=== PATIENT | female | born 1955 | race Caucasian/White ===

== ENCOUNTER 2018-02-23 09:08 | Emergency (ER) | payer OTHER ==
[2018-02-23] MEDS ORDERED: NA CHLORIDE 0.9% 1,000 ML ONE (09:53)
[2018-02-23 10:06] LABS: Absolute Lymphocytes (CBC) 0.4 K/uL (0.7-4.9); Absolute Monocytes 0.7 K/uL (0.1-1.3); Absolute Neutrophil 3.1 K/uL (1.8-8.0); Basophils % 0.2 % (0-1.3); Eosinophils % 8.3 % (0-4.4); Hematocrit 43.7 % (36.0-45.0); Lymphocytes % 9.4 % (15.3-44.8); MCV 90.9 fL (80-100); MPV 7.3 fL (7.6-11.3); Monocytes % 15.2 % (3.3-12.3); RBC Red Blood Cell Count 4.81 M/uL (3.86-4.86)
[2018-02-23 10:25] LABS: Blood Morphology Comment NOT SEEN (NOT SEEN); Platelet Estimate ADEQ; Urine White Blood Cell Casts OK
[2018-02-23 10:27] LABS: Albumin 3.7 g/dL (3.4-5.0); Bilirubin Direct 0.1 mg/dL (0-0.2); Bilirubin Total 0.2 mg/dL (0.2-1.0); Potassium 3.2 mmol/L (3.5-5.1); Protein, Total 7.7 g/dL (6.4-8.2)
[2018-02-23 10:37] LABS: Urine Bacteria <20 /HPF (<20); Urine Culture Reflex Order NOT NEEDED; Urine RBC <5 /HPF (NONE SEEN)
[2018-02-23] MEDS ORDERED: KCL 20 MEQ/100 mL IVPB 20 MEQ/100 ML BAG IV ONE (10:57)
--- NOTE | 2018-02-23 11:33 | RAD REPORT ---
EXAM DESCRIPTION: CTAbdomen Pelvis W Contrast - 02/23/2018 11:23 am CLINICAL HISTORY: Abdominal pain. CONSTIPATION COMPARISON: Abdomen Pelvis W Contrast dated 05/03/2017; CT ABD PELVIS W CONTRAST dated 06/09/2012 TECHNIQUE: Biphasic CT imaging of the abdomen and pelvis was performed with 100 ml non-ionic IV cont rast. All CT scans are performed using dose optimization technique as appropriate and may include automated exposure control or mA/KV adjustment according to patient size. FINDINGS: The lung bases are clear.Small hiatal hernia is present. Postsurgical changes about the st omach. The liver, spleen, pancreas, adrenal glands and kidneys are within normal limits. No bowel obstruction, free air, free fluid or abscess. Moderate fecal retention in the colon. Colonic diverticulosis is present without diverticulitis. The appendix is normal. No evidence of significan t lymphadenopathy. No suspicious bony findings. Mild lumbosacral degenerative changes. IMPRESSION: No acute intra-abdominal or pelvic finding.
--- NOTE | 2018-02-23 11:53 | ER ---
Nurse's Notes [facility] Name: Maryellen Reed Age: 62 yrs Sex: Female : 1955 Arrival Date: 02/23/2018 Time: 09:10 Bed 14 Private MD: Out, [facility] Diagnosis: Constipation;Urinary tract infection, site not specified Presentation: 02/23 09:34 Presenting complaint: Urinary frequency and difficulty urinating x 4 days, constipation hb x 2 months. On Bactrim day 3 for UTI. Transition of care: patient was not received from another setting of care. Onset of symptoms was February 20, 2018. Risk Assessment: Do you want to hurt yourself or someone else? Patient reports no desire to harm self or others. Care prior to arrival: None. 09:34 Method Of Arrival: Ambulatory hb 09:34 Acuity: BERYL 3 hb 09:42 Initial Sepsis Screen: Does the patient meet any 2 criteria? No. Patient's initial la1 sepsis screen is negative. Does the patient have a suspected source of infection? Yes: Dysuria/Frequency/Urgency/UTI. Historical: - Allergies: 09:38 NKA; hb - Home Meds: 09:38 hydrochlorothiazide 25 mg Oral tab 1 tab once daily [Active]; levothyroxine 75 mcg tab hb 1 tab once daily [Active]; Metoprolol Tartrate 12.5 MG Oral once daily [Active]; simvastatin 20 mg Oral tab 1 tab once daily [Active]; - PMHx: 09:38 Heart Murmur; Hyperlipidemia; Hypothyroidism; hb - PSHx: 09:38 Hysterectomy; gastric sleeve; breast augmentation; windy knee; abdominoplasty; left foot; hb - Immunization history:: Adult Immunizations up to date. - Social history:: Smoking status: Patient/guardian denies using tobacco. - Ebola Screening: : No symptoms or risks identified at this time. Screenin:42 Abuse screen: Denies threats or abuse. Nutritional screening: No deficits noted. la1 Tuberculosis screening: No symptoms or risk factors identified. Fall Risk None identified. Assessment: 09:41 General: Appears in no apparent distress. Behavior is calm, cooperative. Pain: Denies la1 pain. Neuro: Level of Consciousness is awake, alert, obeys commands, Oriented to person, place, time, situation. Cardiovascular: Capillary refill < 3 seconds Patient's skin is warm and dry. Respiratory: Airway is patent Respiratory effort is even, unlabored, Respiratory pattern is regular, symmetrical. GI: Bowel sounds present X 4 quads. Abd is soft and non tender X 4 quads. : Reports burning with urination, Pt states she has been on bactrim for UTI since Monday but is still having fever. 10:53 Reassessment: Patient appears in no apparent distress at this time. No changes from la1 previously documented assessment. Patient and/or family updated on plan of care and expected duration. Pain level reassessed. Patient is alert, oriented x 3, equal unlabored respirations, skin warm/dry/pink. 12:43 Reassessment: awaiting completion of IV potassium before DC. la1 Vital Signs: 09:36 BP 120 / 82; Pulse 96; Resp 16; Temp 99.4; Pulse Ox 100% on R/A; Pain 2/10; hb 10:52 BP 112 / 74; Pulse 80; Resp 16; Pulse Ox 98% on R/A; la1 12:12 BP 128 / 75; Pulse 78; Resp 21; Pulse Ox 99% on R/A; mh5 13:06 BP 124 / 61; Pulse 82; Resp 20; Pulse Ox 99% on R/A; mh5 ED Course: 09:10 Patient arrived in ED. mr 09:11 Out, [facility] is Private Physician. mr 09:35 Cordelia Neal [facility]-C [facility]. snw 09:35 Rene Pollard MD is Attending Physician. snw 09:36 Triage completed. hb 09:36 Arm band placed on right wrist. hb 09:41 Jonathan Hairston, JOHANNA is Primary Nurse. la1 09:42 Call light in reach. la1 09:58 No provider procedures requiring assistance completed. Inserted saline lock: 22 gauge la1 in right forearm, using aseptic technique. Blood collected. 10:14 Urine Dipstick--Ancillary (enter results) Sent. mh5 10:14 Urine Culture Sent. mh5 10:14 Urine Microscopic Only Sent. mh5 10:14 Urine collected: clean catch specimen, clear. mh5 11:22 CT completed. Patient tolerated procedure well. Patient moved to CT via wheelchair. sj Patient moved back from CT. 11:24 CT Abd/Pelvis - W/Contrast In Process Unspecified. EDMS 13:54 IV discontinued, intact, bleeding controlled, No redness/swelling at site. Pressure la1 dressing applied. Administered Medications: 09:57 Drug: NS 0.9% 1000 ml Route: IV; Rate: 125 ml/hr; Site: right forearm; la1 13:41 Follow up: IV Status: Order to discontinue infusion la1 10:52 Drug: Potassium Chloride 20 mEq Route: IV; Rate: calculated rate; Site: right forearm; la1 13:41 Follow up: IV Status: Completed infusion la1 13:41 Drug: Macrobid 100 mg Route: PO; la1 13:41 Follow up: Response: Medication administered at discharge. la1 13:41 Drug: Magnesium Citrate Liquid 300 ml Route: PO; la1 13:41 Follow up: Response: Medication administered at discharge. la1 13:54 Not Given (Physician Discretion): Phenergan 6.25 mg IVP once la1 Outcome: 11:53 Discharge ordered by . snw 13:54 Discharged to home ambulatory. la1 13:54 Condition: stable 13:54 Discharge instructions given to patient, Instructed on discharge instructions, follow up and referral plans. medication usage, Demonstrated understanding of instructions, follow-up care, medications, Prescriptions given X 2. 13:54 Patient left the ED. la1 Signatures: Dispatcher [employer] EDNH Cordelia Neal, SAURABH ALLERGIST IMMUNOLOGIST-Araceli ChristianoDaniela Monica DuJonathan Schroeder RN RN la1 Irlanda Pineda RN RN hb Martinez, Maria [facility] Corrections: (The following items were deleted from the chart) 09:42 09:36 BP 120 / 82; Pulse 16bpm; Resp 96bpm; Pulse Ox 100% RA; Temp 99.4F; Pain 2/10; hb hb
--- NOTE | 2018-02-23 11:54 | EDPHYS ---
Physician Documentation [facility] Name: Maryellen Reed Age: 62 yrs Sex: Female : 1955 Arrival Date: 02/23/2018 Time: 09:10 Bed 14 Private MD: Out, [facility] ED Physician Rene Pollard HPI: 02/23 09:43 This 62 yrs old Female presents to ER via Ambulatory with complaints of snw Fever, Urinary Problem, Constipation. 09:43 The patient reports fever, not measured (subjective). Onset: The symptoms/episode snw began/occurred 1 week(s) ago, and became persistent. Associated signs and symptoms: Pertinent positives: cough, urinary s/s and constipation. Severity of symptoms: At their worst the symptoms were moderate. It is unknown whether or not the patient has had similar symptoms in the past. The patient has been recently seen by a physician: the patient's primary care provider, with different complaint(s), and apparently was diagnosed with UTI, was given a prescription for antibiotics. Historical: - Allergies: 09:38 NKA; hb - Home Meds: 09:38 hydrochlorothiazide 25 mg Oral tab 1 tab once daily [Active]; levothyroxine 75 mcg tab hb 1 tab once daily [Active]; Metoprolol Tartrate 12.5 MG Oral once daily [Active]; simvastatin 20 mg Oral tab 1 tab once daily [Active]; - PMHx: 09:38 Heart Murmur; Hyperlipidemia; Hypothyroidism; hb - PSHx: 09:38 Hysterectomy; gastric sleeve; breast augmentation; windy knee; abdominoplasty; left foot; hb - Immunization history:: Adult Immunizations up to date. - Social history:: Smoking status: Patient/guardian denies using tobacco. - Ebola Screening: : No symptoms or risks identified at this time. ROS: 09:42 Eyes: Negative for injury, pain, redness, and discharge, ENT: Negative for injury, snw pain, and discharge, Neck: Negative for injury, pain, and swelling, Cardiovascular: Negative for chest pain, palpitations, and edema, Respiratory: Negative for shortness of breath, cough, wheezing, and pleuritic chest pain. 09:42 Back: Negative for injury and pain, MS/Extremity: Negative for injury and deformity, Skin: Negative for injury, rash, and discoloration, Neuro: Negative for headache, weakness, numbness, tingling, and seizure. 09:42 Constitutional: Positive for body aches, fever, malaise. 09:42 Abdomen/GI: Positive for abdominal pain, constipation. 09:42 : Positive for taking Bactrim for UTI dx at [facility] on Monday. Exam: 09:42 Constitutional: This is a well developed, well nourished patient who is awake, alert, snw and in no acute distress. Head/Face: Normocephalic, atraumatic. Eyes: Pupils equal round and reactive to light, extra-ocular motions intact. Lids and lashes normal. Conjunctiva and sclera are non-icteric and not injected. Cornea within normal limits. Periorbital areas with no swelling, redness, or edema. ENT: Nares patent. No nasal discharge, no septal abnormalities noted. Tympanic membranes are normal and external auditory canals are clear. Oropharynx with no redness, swelling, or masses, exudates, or evidence of obstruction, uvula midline. Mucous membranes moist. Neck: Trachea midline, no thyromegaly or masses palpated, and no cervical lymphadenopathy. Supple, full range of motion without nuchal rigidity, or vertebral point tenderness. No Meningismus. Chest/axilla: Normal chest wall appearance and motion. Nontender with no deformity. No lesions are appreciated. Cardiovascular: Regular rate and rhythm with a normal S1 and S2. No gallops, murmurs, or rubs. Normal PMI, no JVD. No pulse deficits. Respiratory: Lungs have equal breath sounds bilaterally, clear to auscultation and percussion. No rales, rhonchi or wheezes noted. No increased work of breathing, no retractions or nasal flaring. Back: No spinal tenderness. No costovertebral tenderness. Full range of motion. Skin: Warm, dry with normal turgor. Normal color with no rashes, no lesions, and no evidence of cellulitis. MS/ Extremity: Pulses equal, no cyanosis. Neurovascular intact. Full, normal range of motion. Neuro: Awake and alert, GCS 15, oriented to person, place, time, and situation. Cranial nerves II-XII grossly intact. Motor strength 5/5 in all extremities. Sensory grossly intact. Cerebellar exam normal. Normal gait. Psych: Awake, alert, with orientation to person, place and time. Behavior, mood, and affect are within normal limits. 09:42 Abdomen/GI: Inspection: abdomen appears normal, Bowel sounds: normal, Palpation: abdomen is soft and non-tender. Vital Signs: 09:36 BP 120 / 82; Pulse 96; Resp 16; Temp 99.4; Pulse Ox 100% on R/A; Pain 2/10; hb 10:52 BP 112 / 74; Pulse 80; Resp 16; Pulse Ox 98% on R/A; la1 12:12 BP 128 / 75; Pulse 78; Resp 21; Pulse Ox 99% on R/A; mh5 13:06 BP 124 / 61; Pulse 82; Resp 20; Pulse Ox 99% on R/A; mh5 MDM: 09:35 Patient medically screened. snw 11:55 Data reviewed: vital signs, nurses notes. Data interpreted: Pulse oximetry: on room air snw is 98 %. Interpretation: normal. Counseling: I had a detailed discussion with the patient and/or guardian regarding: the historical points, exam findings, and any diagnostic results supporting the discharge/admit diagnosis, lab results, radiology results, the need for outpatient follow up, to return to the emergency department if symptoms worsen or persist or if there are any questions or concerns that arise at home. Response to treatment: the patient's symptoms have markedly improved after treatment. Special discussion: Based on the patient's Hx, exam, and Dx evaluation, there is no indication for emergent surgery or inpatient Tx. It is understood by the patient/guardian that if the Sx's persist or worsen they need to return immediately for re-evaluation. Based on the history and exam findings, there is no indication for further emergent testing or inpatient evaluation. I discussed with the patient/guardian the need to see the senior packaging engineer for further evaluation of the symptoms. I discussed with the patient/guardian the need to see the primary care provider for further evaluation of the symptoms. 02/23 09:30 Order name: Urine Culture snw 02/23 09:30 Order name: Urine Microscopic Only; Complete Time: 10:39 snw 02/23 09:42 Order name: Basic Metabolic Panel; Complete Time: 10:32 snw 02/23 09:42 Order name: CBC with Diff; Complete Time: 10:32 snw 02/23 09:42 Order name: Hepatic Function; Complete Time: 10:32 snw 02/23 09:42 Order name: Lipase; Complete Time: 10:32 snw 02/23 09:42 Order name: CT Abd/Pelvis - W/Contrast; Complete Time: 11:35 snw 02/23 09:56 Order name: Urine Dipstick--Ancillary (enter results) lt1 02/23 10:09 Order name: CBC Smear Scan; Complete Time: 10:32 EDMS 02/23 09:30 Order name: Urine Dipstick-Ancillary (obtain specimen); Complete Time: 09:58 snw 02/23 09:42 Order name: IV Saline Lock; Complete Time: 09:58 snw 02/23 09:42 Order name: Labs collected and sent; Complete Time: 09:58 snw Administered Medications: 09:57 Drug: NS 0.9% 1000 ml Route: IV; Rate: 125 ml/hr; Site: right forearm; la1 13:41 Follow up: IV Status: Order to discontinue infusion la1 10:52 Drug: Potassium Chloride 20 mEq Route: IV; Rate: calculated rate; Site: right forearm; la1 13:41 Follow up: IV Status: Completed infusion la1 13:41 Drug: Macrobid 100 mg Route: PO; la1 13:41 Follow up: Response: Medication administered at discharge. la1 13:41 Drug: Magnesium Citrate Liquid 300 ml Route: PO; la1 13:41 Follow up: Response: Medication administered at discharge. la1 13:54 Not Given (Physician Discretion): Phenergan 6.25 mg IVP once la1 Disposition: 15:56 Co-signature as Attending Physician, Rene Pollard MD. rn Disposition: 02/23/18 11:53 Discharged to Home. Impression: Constipation, Urinary tract infection, site not specified. - Condition is Stable. - Discharge Instructions: Constipation, Adult, High-Fiber Diet, Urinary Tract Infection, Adult, Rehydration, Adult. - Prescriptions for Macrobid 100 mg Oral Capsule - take 1 capsule by ORAL route every 12 hours for 10 days; 20 capsule. Miralax 17 gram/dose Oral - take 1 packet by ORAL route once daily dilute powder in 8 ounces of water or juice; 1 box. - Medication Reconciliation Form, Thank You Letter, Antibiotic Education, Prescription Opioid Use form. - Follow up: Private Physician; When: 2 - 3 days; Reason: Recheck today's complaints, Continuance of care, Re-evaluation by your physician. Follow up: Emergency Department; When: As needed; Reason: Worsening of condition. Signatures: Dispatcher [employer] EDMS Cordelia Neal, PRIMER PRESS OPERATOR-C PRIMER PRESS OPERATOR-Csnw Rene Pollard MD MD rn Attema, Lee, RN RN la1 Irlanda Pineda RN RN Corrections: (The following items were deleted from the chart) 13:54 11:53 02/23/2018 11:53 Discharged to Home. Impression: Constipation; Urinary tract la1 infection, site not specified. Condition is Stable. Forms are Medication Reconciliation Form, Thank You Letter, Antibiotic Education, Prescription Opioid Use. Follow up: Private Physician; When: 2 - 3 days; Reason: Recheck today's complaints, Continuance of care, Re-evaluation by your physician. Follow up: Emergency Department; When: As needed; Reason: Worsening of condition. snw
[2018-02-23] MEDS ORDERED: NITROFURAN MACRO 100 MG CAP PO ONE (13:54)
[2018-02-23] MEDS ORDERED: MAGNESIUM CITRATE 300 ML BOT ONE (13:55)
[2018-02-23 14:03] LABS: Urine Blood TRACE (NEG); Urine Glucose NEGATIVE (NEG); Urine Protein NEGATIVE (NEG); Urine Specific Gravity 1.025 (1.005-1.030)
[2018-02-23 14:08] VITALS: TEMP 99.4
[2018-02-23 14:10] VITALS: O2SAT 99
[2018-02-23 14:11] VITALS: BP 124/61
--- OUTSIDE RECORDS SUMMARY | 2018-02-23 18:28 | XMS REPORT ---
:1955 [facility] Address [address] [place] [address] [address] Care Team Providers Name Role Phone DR ALEXANDRA PENALOZA Unavailable Unavailable Problems This patient has no known problems. Allergies, Adverse Reactions, Alerts This patient has no known allergies or adverse reactions. Medications This patient has no known medications. Encounters Start End Encounter Admission Attending Care Care Encounter Date/Time Date/Time Type Type Clinicians Facility Department ID 2016-07-07 2016-07-07 [place] [facility] [id number] 04:[place] 08:30:00 ALEXANDRA
== END 2018-02-23 13:54 | disposition home or self-care (01) ==
LOC: ER 09:08
DX: N39.0 Urinary tract infection, site not specified (principal); K59.00 Constipation, unspecified; E78.5 Hyperlipidemia, unspecified; E03.9 Hypothyroidism, unspecified; Z98.82 Breast implant status
CPT/HCPCS: 36415; 74177; 80048; 80076; 81003; 81015; 83690; 85025; 87086; 87088; 96361; 96365; 96366; 99284; J7030; Q9967

== ENCOUNTER 2018-02-25 09:31 | Inpatient (IN) | payer OTHER ==
--- OUTSIDE RECORDS SUMMARY | 2018-02-25 09:33 | XMS REPORT ---
:1955 [facility] Address [address] [place] [address] [address] Care Team Providers Name Role Phone DR ALEXANDRA PENALOZA Unavailable Unavailable Problems This patient has no known problems. Allergies, Adverse Reactions, Alerts This patient has no known allergies or adverse reactions. Medications This patient has no known medications. Encounters Start End Encounter Admission Attending Care Care Encounter Date/Time Date/Time Type Type Clinicians Facility Department ID 2016-07-07 2016-07-07 Outpatient C SCAR PENALOZA [facility] [place] [id number] 04:47:00 08:30:00 ALEXANDRA
[2018-02-25] MEDS ORDERED: DIPHENHYDRAMINE 50 MG/ML VIAL ONE (10:47)
[2018-02-25] MEDS ORDERED: NA CHLORIDE 0.9% 1,000 ML ONE (10:47)
[2018-02-25] MEDS ORDERED: METHYLPREDNISOLONE 40 MG INJ ONE ×2 (10:47→12:59)
[2018-02-25] MEDS ORDERED: FAMOTIDINE 20 MG/2 ML VIAL IV ONE (10:47)
[2018-02-25 11:17] LABS: Absolute Lymphocytes (CBC) 0.7 K/uL (0.7-4.9); Absolute Monocytes 0.4 K/uL (0.1-1.3); Absolute Neutrophil 3.3 K/uL (1.8-8.0); Basophils % 0.3 % (0-1.3); Eosinophils % 7.8 % (0-4.4); Hematocrit 43.9 % (36.0-45.0); Lymphocytes % 15.4 % (15.3-44.8); MPV 7.9 fL (7.6-11.3); Monocytes % 7.4 % (3.3-12.3); RBC Red Blood Cell Count 4.87 M/uL (3.86-4.86)
[2018-02-25 11:19] LABS: Protime INR 1.12
[2018-02-25 11:46] LABS: Albumin 3.8 g/dL (3.4-5.0); Alkaline Phosphatase 61 U/L (45-117); BUN Blood Urea Nitrogen 13 mg/dL (7-18); Bicarbonate 29 mmol/L (21-32); Bilirubin Direct 0.1 mg/dL (0-0.2); Bilirubin Total 0.3 mg/dL (0.2-1.0); Glucose Level 97 mg/dL (74-106); Magnesium 2.6 mg/dL (1.8-2.4); NT PRO-BNP 145 pg/mL (<125); Protein, Total 7.5 g/dL (6.4-8.2); Sodium Level 134 mmol/L (136-145); Troponin (Emerg Dept Use Only) < 0.02 ng/mL (0.0-0.045)
--- NOTE | 2018-02-25 11:48 | RAD REPORT ---
EXAM DESCRIPTION: RAD - Chest Single View - 02/25/2018 11:16 am CLINICAL HISTORY: COUGH Chest pain. COMPARISON: Chest Single View dated 05/07/2017; Chest Pa And Lat (2 Views) dated 05/03/2017; Chest Pa A nd Lat (2 Views) dated 09/09/2015; CHEST SINGLE VIEW dated 06/24/2012; Abdomen Pelvis W Contrast dated 02/23/2018 FINDINGS: Portable technique limits examination quality. The lungs are grossly clear. The heart is normal in size. No displaced fractures. IMPRESSION: No acute intrathoracic process suspected.
[2018-02-25 11:59] LABS: ALT/SGPT 327 U/L (12-78); AST/SGOT 379 U/L (15-37)
[2018-02-25 12:05] LABS: Urine Bacteria 20-50 /HPF (<20); Urine Culture Reflex Order NOT NEEDED; Urine Mucus 3+ /HPF (NONE SEEN); Urine RBC <5 /HPF (NONE SEEN)
[2018-02-25 12:36] LABS: Urine Blood TRACE (NEG); Urine Glucose TRACE (NEG); Urine Protein 2+ (NEG); Urine Specific Gravity >1.030 (1.005-1.030)
[2018-02-25 13:15] LABS: Urine Blood NEGATIVE (NEG); Urine Glucose NEGATIVE (NEG); Urine Protein NEGATIVE (NEG)
[2018-02-25 13:34] LABS: Urine Bacteria NONE SEEN /HPF (<20); Urine Culture Reflex Order NOT NEEDED; Urine RBC <5 /HPF (NONE SEEN)
--- NOTE | 2018-02-25 13:36 | EDPHYS ---
Physician Documentation [facility] Name: Maryellen Reed Age: 62 yrs Sex: Female : 1955 Arrival Date: 02/25/2018 Time: 09:34 Bed 16 Private MD: Out, [facility] ED Physician Jeff Burciaga HPI: 02/25 10:24 This 62 yrs old Female presents to ER via Ambulatory with complaints of Rash. cp 10:24 The patient's rash thought to be caused by an unknown cause. The rash is located on the cp body diffusely. 10:25 The rash can be described as erythematous, flat. cp 10:25 Onset: The symptoms/episode began/occurred this morning, and became worse today. cp Associated signs and symptoms: Pertinent positives: fever. 10:25 Severity of symptoms: in the emergency department the symptoms are unchanged. cp 10:25 Patient reports taking prescribed Bactrim for uti since this past Monday. She cp continued to have fever and urinary symptoms so she was seen in [facility] ED and prescribed Nitrofurantoin. Patient reports history of generalized itching in the past after taking oral Bactrim. Historical: - Allergies: 10:05 NKA; la1 - PMHx: 10:05 Heart Murmur; Hyperlipidemia; Hypothyroidism; la1 - Immunization history:: Adult Immunizations up to date. - Social history:: Smoking status: Patient/guardian denies using tobacco. - Ebola Screening: : No symptoms or risks identified at this time. ROS: 10:30 Constitutional: Positive for fever, Negative for body aches, chills, poor PO intake. cp 10:30 Eyes: Negative for injury, pain, redness, and discharge. cp 10:30 Cardiovascular: Negative for chest pain, edema, palpitations. cp 10:30 ENT: Negative for drainage from ear(s), ear pain, sore throat, difficulty swallowing, cp difficulty handling secretions, hoarseness. 10:30 Respiratory: Negative for cough, shortness of breath, wheezing. 10:30 Abdomen/GI: Negative for abdominal pain, nausea, vomiting, and diarrhea, constipation, black/tarry stool, rectal bleeding. 10:30 : Negative for urinary symptoms. 10:30 Skin: Positive for rash, diffusely. 10:30 Neuro: Negative for altered mental status, headache, weakness. 10:30 All other systems are negative. Exam: 10:34 Constitutional: The patient appears in no acute distress, alert, non-diaphoretic, cp non-toxic, well developed, well nourished. 10:34 Head/face: Exam is negative for obvious evidence of injury or deformity, swelling. cp 10:34 Eyes: Periorbital structures: appear normal, Pupils: equal, round, and reactive to light and accomodation, Extraocular movements: intact throughout, Conjunctiva: normal, no exudate, no injection, Sclera: no appreciated abnormality, Lids and lashes: appear normal, bilaterally. 10:34 ENT: External ear(s): are unremarkable, Ear canal(s): are normal, clear, TM's: are normal, no evidence of bulging, no erythema, dullness, bilaterally, Nose: is normal, Mouth: Lips: moist, Oral mucosa: moist, noted petechial lesions upper palate, Posterior pharynx: Airway: no evidence of obstruction, patent, Tonsils: are normal in appearance, Uvula: midline, non-edematous, exudate, is not appreciated, Voice: is normal. 10:34 Neck: ROM/movement: is normal, is supple, without pain, no range of motions limitations, no meningismus, no nuchal rigidity, Lymph nodes: lymphadenopathy is appreciated, post auricular nodes. 10:34 Chest/axilla: Inspection: rash, that is moderate, Palpation: is normal, no crepitus, no tenderness. 10:34 Cardiovascular: Rate: normal, Rhythm: regular, Heart sounds: murmur, not appreciated, Edema: is not appreciated, JVD: is not appreciated. 10:34 Respiratory: the patient does not display signs of respiratory distress, Respirations: normal, no use of accessory muscles, no retractions, no splinting, no tachypnea, labored breathing, is not present, Breath sounds: are clear throughout, no decreased breath sounds, no stridor, no wheezing. 10:34 Abdomen/GI: Inspection: distension, is not seen, Bowel sounds: active, all quadrants, Palpation: abdomen is soft and non-tender, in all quadrants, rebound tenderness, is not appreciated, involuntary guarding, is not appreciated. 10:34 Back: pain, is absent, ROM is normal. 10:34 Skin: rash can be described as erythematous, macular, and is diffusely located. 10:34 Neuro: Orientation: to person, place \T\ time. Mentation: is normal, Cerebellar function: is grossly normal, Motor: moves all fours, strength is normal, Sensation: is normal. 11:20 ECG was reviewed by the Attending Physician. Vital Signs: 10:06 BP 100 / 83; Pulse 84; Resp 18; Temp 100.4(O); Pulse Ox 95% on R/A; Weight 90.72 kg; la1 Height 5 ft. 5 in. (165.10 cm); Pain 0/10; 12:12 BP 112 / 80; Pulse 81; Resp 16 S; Temp 99.1(O); Pulse Ox 100% on R/A; jl7 13:07 BP 128 / 71; Pulse 71; Resp 17; Pulse Ox 99% on R/A; mh5 14:00 BP 113 / 82; Pulse 75; Resp 16 S; Pulse Ox 99% on R/A; jl7 15:00 BP 120 / 79; Pulse 74; Resp 16 S; Pulse Ox 99% on R/A; jl7 10:06 Body Mass Index 33.28 (90.72 kg, 165.10 cm) la1 MDM: 10:08 Patient medically screened. 13:34 Physician consultation: Magali Tucker MD was called at 13:35, was contacted at 13:35, regarding admission, to the medical/surgical unit. patient's condition. 13:35 Data reviewed: vital signs, nurses notes, lab test result(s), EKG, radiologic studies, cp plain films. 13:35 Test interpretation: by ED physician or midlevel provider: ECG, plain radiologic cp studies. Counseling: I had a detailed discussion with the patient and/or guardian regarding: the historical points, exam findings, and any diagnostic results supporting the discharge/admit diagnosis, lab results, radiology results, the need for further work-up and treatment in the hospital. Response to treatment: the patient's symptoms have mildly improved after treatment. 02/25 10:22 Order name: Strep; Complete Time: 11:38 cp 02/25 10:22 Order name: Basic Metabolic Panel; Complete Time: 12:09 cp 02/25 10:22 Order name: CBC with Diff; Complete Time: 11:38 cp 02/25 11:38 Interpretation: Normal except: RBC 4.87; EOSINOPHIL % 7.8. cp 02/25 10:22 Order name: LFT's; Complete Time: 12:09 02/25 10:22 Order name: Magnesium; Complete Time: 12:09 02/25 10:22 Order name: NT PRO-BNP; Complete Time: 12:09 02/25 10:22 Order name: PT-INR; Complete Time: 11:38 cp 02/25 10:22 Order name: Troponin (emerg Dept Use Only); Complete Time: 12:09 02/25 10:22 Order name: Procalcitonin; Complete Time: 12:09 02/25 10:22 Order name: Lactate; Complete Time: 12:09 02/25 10:22 Order name: Blood Culture Adult (2) cp 02/25 10:23 Order name: Urine Microscopic Only; Complete Time: 12:09 02/25 12:09 Interpretation: Normal except: UBACT 20-50; SQEPI 20-50; MUCUS 3+. 02/25 11:06 Order name: Urine Dipstick--Ancillary (enter results); Complete Time: 13:33 ag 02/25 11:25 Order name: Throat Culture EDND 02/25 10:22 Order name: XRAY Chest (1 view); Complete Time: 12:09 02/25 10:22 Order name: EKG; Complete Time: 10:24 02/25 10:22 Order name: Cardiac monitoring; Complete Time: 12:22 02/25 10:22 Order name: EKG - Nurse/Tech; Complete Time: 11:20 02/25 10:22 Order name: IV Saline Lock; Complete Time: 12:22 02/25 10:22 Order name: Labs collected and sent; Complete Time: 12:22 02/25 10:22 Order name: O2 Per Protocol; Complete Time: 12:22 02/25 12:46 Order name: Urine Culture [facility] 02/25 12:46 Order name: Urine Microscopic Only; Complete Time: 15:24 [facility] 02/25 15:24 Interpretation: Reviewed. 02/25 12:51 Order name: Urine Dipstick--Ancillary (enter results); Complete Time: 13:33 ag 02/25 10:22 Order name: O2 Sat Monitoring; Complete Time: 12:22 cp 02/25 10:23 Order name: Urine Dipstick-Ancillary (obtain specimen); Complete Time: 11:00 cp 02/25 12:09 Order name: Vital Signs: please update to include temp; Complete Time: 12:21 cp 02/25 12:27 Order name: Cath: repeat urine micro on cath sample; Complete Time: 12:46 cp EC:20 Rate is 73 beats/min. Rhythm is regular. VT interval is normal. QRS interval is normal. cp QT interval is normal. No ST changes noted. Interpreted by me. Reviewed by me. Administered Medications: 11:00 Drug: NS 0.9% 1000 ml Route: IV; Rate: 1 bolus; Site: right antecubital; jl7 11:05 Drug: Pepcid 20 mg Route: IVP; Site: right antecubital; jl7 12:16 Follow up: Response: No adverse reaction; No change in condition jl7 11:08 Drug: SOLU-Medrol 80 mg Route: IVP; Site: right antecubital; jl7 12:16 Follow up: Response: No adverse reaction; No change in condition jl7 11:10 Drug: Benadryl 50 mg Route: IVP; Site: right antecubital; jl7 12:15 Follow up: Response: No adverse reaction; No change in condition jl7 12:55 Drug: SOLU-Medrol 40 mg Route: IVP; Site: right antecubital; jl7 13:30 Follow up: Response: No adverse reaction; Marked relief of symptoms jl7 15:12 Drug: hydrOXYzine 50 mg {Note: Administered IM as per VO from SELENA Cote, jl7 administered in right deltoid.} Route: PO; 15:14 Follow up: Response: No adverse reaction jl7 Disposition: 15:35 Chart complete. cp Disposition: 02/25/18 13:36 Hospitalization ordered by Magali Tucker for Observation. Preliminary diagnosis is Allergy status to unspecified drugs, medicaments and biological substances status. - Bed requested for Telemetry/MedSurg (observation). - Status is Observation. jl7 - Condition is Stable. - Problem is new. - Symptoms have improved. UTI on Admission? No Addendum: 03/08/2018 15:35 Co-signature as Attending Physician, Jeff Burciaga MD Available for consultation at p s1 all times. . Signatures: Dispatcher [employer] EDMS Ashlee Joseph RN RN Jonathan Rodríguez RN RN [email or web address] Kristian Mcclendon PA PA cp Leal, Jahala, RN RN jl7 Jeff Burciaga MD MD ps1 Corrections: (The following items were deleted from the chart) 02/25 11:38 11:38 Normal except: RBC 4.87. cp cp 13:42 13:36 Hospitalization Ordered by Magali Tucker MD for Observation. 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 Bed requested for Telemetry/MedSurg (observation). Status is Observation. Condition is Stable. Problem is new. Symptoms have improved. UTI on Admission? No. cp 14:12 13:42 02/25/2018 13:36 Hospitalization Ordered by Magali Tucker MD for Observation. dw Preliminary diagnosis is Allergy status to unspecified drugs, medicaments and biological substances status. Bed requested for Telemetry/MedSurg (observation). Status is Observation. Condition is Stable. Problem is new. Symptoms have improved. UTI on Admission? No. cp 14:13 14:12 02/25/2018 13:36 Hospitalization Ordered by Magali Tucker MD for Observation. dw Preliminary diagnosis is Allergy status to unspecified drugs, medicaments and biological substances status. Bed requested for Telemetry/MedSurg (observation). Status is Observation. Condition is Stable. Problem is new. Symptoms have improved. UTI on Admission? No. dw 15:29 14:13 02/25/2018 13:36 Hospitalization Ordered by Magali Tucker MD for Observation. jl7 Preliminary diagnosis is Allergy status to unspecified drugs, medicaments and biological substances status. Bed requested for Telemetry/MedSurg (observation). Status is Observation. Condition is Stable. Problem is new. Symptoms have improved. UTI on Admission? No. dw
--- NOTE | 2018-02-25 13:36 | ER ---
Nurse's Notes [facility] Name: Maryellen Reed Age: 62 yrs Sex: Female : 1955 Arrival Date: 02/25/2018 Time: 09:34 Bed 16 Private MD: Out, [facility] Diagnosis: Allergy status to unspecified drugs, medicaments and biological substances status Presentation: 02/25 10:03 Presenting complaint: Patient states: I was recently in here for UTI and I was started la1 on macrobid on Monday in addition to the bactrim I was already taking, I am also constipated and took mag citrate and it cleared my out but I am constipated again and now I have a rash all over my body, I have also still been running a fever at home. Transition of care: patient was not received from another setting of care. Onset of symptoms was February 25, 2018. Risk Assessment: Do you want to hurt yourself or someone else? Patient reports no desire to harm self or others. Initial Sepsis Screen: Does the patient meet any 2 criteria? No. Patient's initial sepsis screen is negative. Does the patient have a suspected source of infection? No. Patient's initial sepsis screen is negative. Care prior to arrival: None. 10:03 Method Of Arrival: Ambulatory la1 10:03 Acuity: BERYL 3 la1 Historical: - Allergies: 10:05 NKA; la1 - PMHx: 10:05 Heart Murmur; Hyperlipidemia; Hypothyroidism; la1 - Immunization history:: Adult Immunizations up to date. - Social history:: Smoking status: Patient/guardian denies using tobacco. - Ebola Screening: : No symptoms or risks identified at this time. Screenin:10 Abuse screen: Denies threats or abuse. Denies injuries from another. Nutritional jl7 screening: No deficits noted. Tuberculosis screening: No symptoms or risk factors identified. Fall Risk IV access (20 points). Assessment: 11:00 General: Appears in no apparent distress. uncomfortable, Behavior is calm, cooperative, jl7 appropriate for age. Pain: Denies pain. Neuro: Level of Consciousness is awake, alert, obeys commands, Oriented to person, place, time, situation. Cardiovascular: Heart tones S1 S2 present Patient's skin is warm and dry. Respiratory: Airway is patent Respiratory effort is even, unlabored, Respiratory pattern is regular, symmetrical, Breath sounds are clear bilaterally. Denies shortness of breath. GI: No signs and/or symptoms were reported involving the gastrointestinal system. : Urine is dark brown in color Reports Diagnosed with UTI on Monday, symptoms have improved Denies burning with urination, pain. EENT: No signs and/or symptoms were reported regarding the EENT system. Derm: Skin is pink, warm \T\ dry. Rash noted that is itchy, red, on face, chest, right arm and left arm. Musculoskeletal: No signs and/or symptoms reported regarding the musculoskeletal system. 12:10 Reassessment: Pt reports increased itching and redness, denies SOB, ERP notified, no [facility] new orders at this time. 13:13 Reassessment: Patient appears in no apparent distress at this time. Patient and/or 7 family updated on plan of care and expected duration. Pain level reassessed. Patient is alert, oriented x 3, equal unlabored respirations, skin warm/dry/pink. Pt reports decreased itching and redness at this time. ERP notified. 14:00 Reassessment: Patient appears in no apparent distress at this time. No changes from [facility] previously documented assessment. Patient and/or family updated on plan of care and expected duration. Pain level reassessed. Patient is alert, oriented x 3, equal unlabored respirations, skin warm/dry/pink. Patient states symptoms have improved. 15:05 Reassessment: pt reports increased itching, ERP notified, see [facility] for orders. jl7 Vital Signs: 10:06 BP 100 / 83; Pulse 84; Resp 18; Temp 100.4(O); Pulse Ox 95% on R/A; Weight 90.72 kg; la1 Height 5 ft. 5 in. (165.10 cm); Pain 0/10; 12:12 BP 112 / 80; Pulse 81; Resp 16 S; Temp 99.1(O); Pulse Ox 100% on R/A; jl7 13:07 BP 128 / 71; Pulse 71; Resp 17; Pulse Ox 99% on R/A; 5 14:00 BP 113 / 82; Pulse 75; Resp 16 S; Pulse Ox 99% on R/A; jl7 15:00 BP 120 / 79; Pulse 74; Resp 16 S; Pulse Ox 99% on R/A; jl7 10:06 Body Mass Index 33.28 (90.72 kg, 165.10 cm) la1 ED Course: 09:34 Patient arrived in ED. dl4 09:34 Out, [facility] is Private Physician. dl4 10:05 Triage completed. la1 10:05 Arm band placed on right wrist. la1 10:08 Kristian Mcclendon PA is PHCP. cp 10:08 Jeff Burciaga MD is Attending Physician. cp 10:15 Jesus De La Rosa RN is Primary Nurse. 7 11:00 Urine Microscopic Only Sent. [facility] 11:00 Urine collected: clean catch specimen, tea colored, EKG done, by ED staff, reviewed by [facility] Jeff Burciaga MD. 11:00 Initial lab(s) drawn, by me, sent to lab. Inserted saline lock: 20 gauge in right jl7 antecubital area, using aseptic technique. Blood collected. 11:14 X-ray completed. Portable x-ray completed in exam room. Patient tolerated procedure la2 well. 11:16 XRAY Chest (1 view) In Process Unspecified. EDWA 11:20 Urine Microscopic Only Sent. [facility] 11:20 Urine Dipstick--Ancillary (enter results) Sent. [facility] 12:10 Patient has correct armband on for positive identification. Bed in low position. Call [facility] light in reach. Side rails up X 1. Pulse ox on. NIBP on. Warm blanket given. 13:13 Straight cath inserted, using sterile technique, 16 Fr. Specimen obtained. Returned jl clear yellow urine. Patient tolerated well. 13:35 Magali Tucker MD is Hospitalizing Provider. cp 15:00 No provider procedures requiring assistance completed. Patient admitted, IV remains in jl7 place. intact, No redness/swelling at site. Administered Medications: 11:00 Drug: NS 0.9% 1000 ml Route: IV; Rate: 1 bolus; Site: right antecubital; jl7 11:05 Drug: Pepcid 20 mg Route: IVP; Site: right antecubital; jl7 12:16 Follow up: Response: No adverse reaction; No change in condition jl7 11:08 Drug: SOLU-Medrol 80 mg Route: IVP; Site: right antecubital; 7 12:16 Follow up: Response: No adverse reaction; No change in condition jl7 11:10 Drug: Benadryl 50 mg Route: IVP; Site: right antecubital; jl7 12:15 Follow up: Response: No adverse reaction; No change in condition jl7 12:55 Drug: SOLU-Medrol 40 mg Route: IVP; Site: right antecubital; jl7 13:30 Follow up: Response: No adverse reaction; Marked relief of symptoms jl7 15:12 Drug: hydrOXYzine 50 mg {Note: Administered IM as per VO from SELENA Cote, jl7 administered in right deltoid.} Route: PO; 15:14 Follow up: Response: No adverse reaction jl7 Outcome: 13:36 Decision to Hospitalize by Provider. cp 15:00 Admitted to Med/surg accompanied by tech, family with patient, via wheelchair, room [facility] 422, with chart, Report called to JOHANNA Jarvis 15:00 Condition: stable 15:00 Discharge instructions given to patient, family, Instructed on the need for admit, Demonstrated understanding of instructions. 15:29 Patient left the ED. jl7 Signatures: Dispatcher [employer] EDMS Jonathan Hairston, RN RN la1 Kristian Mcclendon PA PA cp Martinez, Maria 5 Jesus De La Rosa RN RN jl7 Maria Del Carmen Peterson2 Darren Nelson dl4 Corrections: (The following items were deleted from the chart) 15:27 15:15 Reassessment: Patient denies pain at this time. jl7 jl7
[2018-02-25] MEDS ORDERED: hydrOXYzine HCl 25 MG TAB ONE (15:10)
[2018-02-25] MEDS ORDERED: hydrOXYzine HCl 50 MG/ML VIAL IM ONE (15:11)
--- NOTE | 2018-02-25 15:40 | P.HP ---
Certification for Inpatient Patient admitted to: Observation With expected LOS: <2 Midnights Patient will require the following post-hospital care: None Practitioner: I am a practitioner with admitting privileges, knowledge of patient current condition, hospital course, and medical plan of care. Services: Services provided to patient in accordance with Admission requirements found in Title 42 Section 412.3 of the Code of Federal Regulations Patient History Date of Service: 02/25/18 Reason for admission: Medication SE History of Present Illness: 62-year-old female with significant past medical history of high blood pressure , hypothyroidism, hyperlipidemia who presented to the ED complaining of having generalized rash. Patient states that she was seen about a week ago at her primary care doctor's office for similar symptoms and was given Bactrim DS at that time. However her symptoms did not resolve and thus she decided to come to the emergency room. When she came to the emergency room she was given a prescription for Macrobid and MiraLax for constipation. When she fell bladder and lab work and imaging study came back negative, patient was discharged home under stable condition. However once home patient states that she has been having low-grade fever and today she started noticing that she has generalized rash and thus decided to come to the ER. Patient also has been taking Tylenol 1000mg every 4 to 6 hrs for past two days. Patient has not had similar episodes in the past and no other complaints to offer at this time. Patient denies having any breathing difficulty or any chest pain at this time. Patient denies having any nausea vomiting abdominal pain or any other associated symptoms. In the ER patient was seen and evaluated in imaging and lab work was done. Lab work was consistent with transaminitis. Physical exam was consistent with generalized rash that was not blanching in nature and this patient was admitted for further workup. Allergies nitrofurantoin Allergy (Verified 02/25/18 15:54) Itching/Hives/Rash sulfamethizole Allergy (Verified 02/25/18 15:54) Itching/Hives/Rash Home Medications: Levothyroxine Sodium 1 tab PO DAILY 02/25/18 Metoprolol Succinate [Toprol Xl] 25 mg PO DAILY 02/25/18 Simvastatin 1 tab PO BEDTIME 02/25/18 hydroCHLOROthiazide [Hydrochlorothiazide] 1 tab PO DAILY 02/25/18 - Past Medical/Surgical History Diabetic: No -: HTN -: Hypothyrodism Past Surgical History: Reviewed- Non-Contributory - Family History Family History: Reviewed- Non-Contributory - Family History Mother -: Stroke Father -: Cancer Notes: colon - Social History Alcohol use: No CD- Drugs: No Caffeine use: Yes Review of Systems 10-point ROS is otherwise unremarkable Physical Examination - Physical Exam General: Alert, In no apparent distress HEENT: Atraumatic, PERRLA, Mucous membr. moist/pink, EOMI, Sclerae nonicteric Neck: Supple, 2+ carotid pulse no bruit, No LAD, Without JVD or thyroid abnormality Respiratory: Clear to auscultation bilaterally, Normal air movement Cardiovascular: Regular rate/rhythm, Normal S1 S2 Gastrointestinal: Normal bowel sounds, No tenderness Musculoskeletal: No tenderness Integumentary: Rash(es) (Generalized Peteachial Nonblanching rash) Neurological: Normal gait, Normal speech, Normal strength at 5/5 x4 extr, Normal tone, Normal affect Lymphatics: No axilla or inguinal lymphadenopathy - Studies Laboratory Data (last 24 hrs) 02/25/18 11:06: PT 13.2 H, INR 1.12 02/25/18 11:06: WBC 4.8, Hgb 14.9, Hct 43.9, Plt Count 193 02/25/18 11:06: Sodium 134 L, Potassium 4.0, BUN 13, Creatinine 0.88, Glucose 97 , Magnesium 2.6 H, Total Bilirubin 0.3, AST 379 H* D, ALT 327 H* D, Alkaline Phosphatase 61 Microbiology Data (last 24 hrs): 02/25/18 11:06 Throat Group A Streptococcus Rapid Screen - Final Assessment and Plan - Problems (Diagnosis) (1) Tylenol toxicity Current Visit: Yes Status: Acute Plan: Tylenol Toxicity. Patient taking Tylenol 1000mg every 4 to 6 hrs. Exacerbated with macrobid -Mucomyst loading dose and then 17 doses after -Trend LFt's at this time Qualifiers: Encounter type: initial encounter Injury intent: accidental or unintentional Qualified Code(s): T39.1X1A - Poisoning by 4-Aminophenol derivatives, accidental (unintentional), initial encounter (2) Transaminitis Current Visit: Yes Status: Acute Plan: Most Likely from medication SE (Macrobid vs Tylenol) -AST/ALT ratio < 1 -Stop Macrobid and tylenol -IV fluids and Monitor Closely -Coagulation WNL (3) Generalized rash Current Visit: Yes Status: Acute Plan: Likely secondary to Macrobid. -status post Solu-Medrol in the ER -will put p.r.n. Benadryl as needed. -Continue to monitor closely (4) HTN (hypertension) Current Visit: Yes Status: Chronic Plan: Restart home medication at this time Qualifiers: Hypertension type: essential hypertension Qualified Code(s): I10 - Essential (primary) hypertension (5) Hypothyroidism Current Visit: Yes Status: Chronic Plan: Restart home medication at this time Qualifiers: Hypothyroidism type: acquired Qualified Code(s): E03.9 - Hypothyroidism, unspecified - Plan Admit to med Surg for Tylenol toxicity and Rash. Discharge Plan: Home Plan to discharge in: 48 Hours - Advance Directives Does patient have a Living Will: No Does patient have a Durable POA for Healthcare: No - Code Status/Comfort Care Code Status Assessed: Yes Critical Care: No
[2018-02-25] MEDS ORDERED: ONDANSETRON 4 MG/2 ML VIAL IV PRN ×2 (15:59→18:37)
[2018-02-25] MEDS ORDERED: ACETAMINOPHEN 500 MG TAB PO PRN ×2 (15:59→18:36)
[2018-02-25] MEDS ORDERED: NA CHLORIDE 0.9% 1,000 ML IV SCH (16:00)
[2018-02-25 16:28] VITALS: BMI 33.3
[2018-02-25] MEDS ORDERED: ACETYLCYST 6,000 MG/30 ML VIAL PO ONE ×2 (16:42→19:00)
[2018-02-25] MEDS ORDERED: ACETYLCYST 6,000 MG/30 ML VIAL PO SCH (17:00)
--- NOTE | 2018-02-25 17:27 | EKG ---
Test Date: 2018-02-25 Test Time: 11:12:11 [employer] Layout Taper: LACY MEASUREMENT RESULTS: Intervals: Rate: 73 WI: 188 QRSD: 100 QT: 408 QTc: 449 [place]: P: 38 WI: 188 QRS: 72 T: 63 INTERPRETIVE STATEMENTS: Normal sinus rhythm Normal ECG Compared to ECG 05/07/2017 15:19:02 No significant changes Electronically Signed On 02-25-18 17:17:49 REPAIR MECHANIC by Tate Jones
[2018-02-25] MEDS: NA CHLORIDE 0.9% 1,000 ML IV SCH (18:56)
[2018-02-25] MEDS: ACETYLCYST 6,000 MG/30 ML VIAL PO SCH (22:15)
[2018-02-25] MEDS ORDERED: DIPHENHYDRAMINE 25 MG TAB/CAP PO ONE (23:17)
[2018-02-26] MEDS: ACETYLCYST 6,000 MG/30 ML VIAL PO SCH ×6 (03:10→23:09)
[2018-02-26] MEDS: NA CHLORIDE 0.9% 1,000 ML IV SCH ×3 (03:11→16:48)
[2018-02-26 04:17] LABS: Absolute Lymphocytes (CBC) 0.9 K/uL (0.7-4.9); Absolute Monocytes 0.5 K/uL (0.1-1.3); Absolute Neutrophil 3.2 K/uL (1.8-8.0); Basophils % 0.5 % (0-1.3); Eosinophils % 0.6 % (0-4.4); Hematocrit 41.2 % (36.0-45.0); MPV 8.2 fL (7.6-11.3); Monocytes % 10.3 % (3.3-12.3); RBC Red Blood Cell Count 4.59 M/uL (3.86-4.86)
[2018-02-26 04:25] LABS: Bilirubin Total 0.2 mg/dL (0.2-1.0); Potassium 4.1 mmol/L (3.5-5.1); Protein, Total 6.6 g/dL (6.4-8.2)
[2018-02-26 04:30] LABS: Blood Morphology Comment NOT SEEN (NOT SEEN); Platelet Estimate ADEQ; Urine White Blood Cell Casts OK
[2018-02-26] MEDS: LEVOTHYROXINE SOD 0.075 MG TAB PO SCH (06:42)
[2018-02-26] MEDS: hydroCHLOROthiazide 25 MG TAB PO SCH (08:51)
[2018-02-26] MEDS: METOPROLOL XL 25 MG TAB PO SCH (08:52)
[2018-02-26] MEDS ORDERED: hydroCHLOROthiazide 25 MG TAB PO SCH (09:00)
[2018-02-26] MEDS ORDERED: METOPROLOL XL 25 MG TAB PO SCH (09:00)
[2018-02-26] MEDS ORDERED: LEVOTHYROXINE SOD 0.075 MG TAB PO SCH (09:00)
--- NOTE | 2018-02-26 11:45 | P.PN ---
Subjective Date of Service: 02/26/18 Chief Complaint: Medication SE Subjective: Tolerating diet, Ambulating, Improving, Working w/ PT, Doing well Review of Systems 10-point ROS is otherwise unremarkable Physical Examination - Vital Signs Temperature: 98.5 F Blood Pressure: 142/68 Pulse: 64 Respirations: 16 Pulse Ox (%): 100 - Physical Exam General: Alert, In no apparent distress HEENT: Atraumatic, PERRLA, EOMI Neck: Supple, JVD not distended Respiratory: Clear to auscultation bilaterally, Normal air movement Cardiovascular: Regular rate/rhythm, Normal S1 S2 Gastrointestinal: Normal bowel sounds, No tenderness Musculoskeletal: No tenderness Integumentary: Rash(es) (Generalized Rash Getting better. ) Neurological: Normal speech, Normal tone, Normal affect Lymphatics: No axilla or inguinal lymphadenopathy - Studies Laboratory Data (last 24 hrs) 02/25/18 11:06: Sodium 134 L, Potassium 4.0, BUN 13, Creatinine 0.88, Glucose 97 , Magnesium 2.6 H, Total Bilirubin 0.3, AST 379 H* D, ALT 327 H* D, Alkaline Phosphatase 61 Microbiology Data (last 24 hrs): 02/25/18 11:06 Throat Culture & Sensitivity - Final 02/25/18 11:06 Throat Group A Streptococcus Rapid Screen - Final Medications List Reviewed: Yes Assessment And Plan - Current Problems (Diagnosis) (1) Tylenol toxicity Onset Date: 02/25/18 Current Visit: Yes Status: Acute Plan: Tylenol Toxicity. Patient taking Tylenol 1000mg every 4 to 6 hrs. Exacerbated with macrobid -Currently on Mucomyst PO. -LFT further elevated today. -GI consultation Unable at this time. -If LFt Continue to elevate then will consider transfer to for GI and hepatology coverage. Qualifiers: Encounter type: initial encounter Injury intent: accidental or unintentional Qualified Code(s): T39.1X1A - Poisoning by 4-Aminophenol derivatives, accidental (unintentional), initial encounter (2) Transaminitis Onset Date: 02/25/18 Current Visit: Yes Status: Acute Plan: Most Likely from medication SE (Macrobid vs Tylenol). Elevated Today -AST/ALT ratio < 1 -Stop Macrobid and tylenol -IV fluids and Monitor Closely (3) Generalized rash Onset Date: 02/25/18 Current Visit: Yes Status: Acute Plan: Likely secondary to Macrobid. Improving -status post Solu-Medrol in the ER -Prednisone 10mg daily -Continue to monitor closely (4) HTN (hypertension) Onset Date: 02/25/18 Current Visit: Yes Status: Chronic Plan: Restart home medication at this time Qualifiers: Hypertension type: essential hypertension Qualified Code(s): I10 - Essential (primary) hypertension (5) Hypothyroidism Onset Date: 02/25/18 Current Visit: Yes Status: Chronic Plan: Restart home medication at this time Qualifiers: Hypothyroidism type: acquired Qualified Code(s): E03.9 - Hypothyroidism, unspecified - Plan Pending Clinical Improvement Discharge Plan: Home Plan to discharge in: 72 Hours - Code Status/Comfort Care Code Status Assessed: Yes Critical Care: No
[2018-02-26] MEDS: predniSONE 10 MG TAB PO SCH (12:19)
--- NOTE | 2018-02-26 16:44 | RAD REPORT ---
EXAM DESCRIPTION: US - Abdomen Exam Complete - 02/26/2018 4:35 pm CLINICAL HISTORY: Abdominal pain/elevated liver function enzymes COMPARISON: none FINDINGS: The liver has a homogeneous echotexture. A gallstone is not seen. The gallbladder wall is not thickened. Common bile duct measures 7 millimete rs The pancreas normal in size and echotexture The right kidney measures 10 centimeters with a normal echotexture. The left kidney measures 10 centimeters with a normal echotexture. The spleen measures 10 centimeters. The abdominal aorta and inferior vena cava appear unremarkable IMPRESSION: Borderline dilatation of the common bile duct. Otherwise unremarkable exam
[2018-02-27] MEDS: ACETYLCYST 6,000 MG/30 ML VIAL PO SCH ×6 (02:56→22:56)
[2018-02-27] MEDS: NA CHLORIDE 0.9% 1,000 ML IV SCH ×3 (02:56→18:49)
[2018-02-27] MEDS: LEVOTHYROXINE SOD 0.075 MG TAB PO SCH (06:49)
[2018-02-27 09:06] LABS: Absolute Lymphocytes (CBC) 3.7 K/uL (0.7-4.9); Absolute Monocytes 0.8 K/uL (0.1-1.3); Absolute Neutrophil 1.8 K/uL (1.8-8.0); Basophils % 0.7 % (0-1.3); Eosinophils % 2.4 % (0-4.4); Hematocrit 40.4 % (36.0-45.0); Lymphocytes % 56.2 % (15.3-44.8); MPV 7.8 fL (7.6-11.3); Monocytes % 12.6 % (3.3-12.3); RBC Red Blood Cell Count 4.42 M/uL (3.86-4.86)
[2018-02-27] MEDS: METOPROLOL XL 25 MG TAB PO SCH (09:12)
[2018-02-27] MEDS: predniSONE 10 MG TAB PO SCH (09:12)
[2018-02-27] MEDS: hydroCHLOROthiazide 25 MG TAB PO SCH (09:12)
[2018-02-27 09:32] LABS: Albumin 2.8 g/dL (3.4-5.0); Bilirubin Total 0.1 mg/dL (0.2-1.0); Potassium 3.4 mmol/L (3.5-5.1); Protein, Total 6.1 g/dL (6.4-8.2)
--- NOTE | 2018-02-27 12:10 | P.PN ---
Subjective Date of Service: 02/27/18 Chief Complaint: Medication SE Subjective: Tolerating diet, Ambulating, Improving, Working w/ PT, Doing well Review of Systems 10-point ROS is otherwise unremarkable Physical Examination - Vital Signs Temperature: 98.4 F Blood Pressure: 112/63 Pulse: 78 Respirations: 17 Pulse Ox (%): 96 - Physical Exam General: Alert, In no apparent distress HEENT: Atraumatic, PERRLA, EOMI Neck: Supple, JVD not distended Respiratory: Clear to auscultation bilaterally, Normal air movement Cardiovascular: Regular rate/rhythm, Normal S1 S2 Gastrointestinal: Normal bowel sounds, No tenderness Musculoskeletal: No tenderness Integumentary: No rashes Neurological: Normal speech, Normal tone, Normal affect Lymphatics: No axilla or inguinal lymphadenopathy - Studies Microbiology Data (last 24 hrs): 02/25/18 12:43 Catheterized Urine [place] Count - Final 02/25/18 12:43 Catheterized Urine - Final No growth. 02/25/18 11:06 Throat Culture & Sensitivity - Final Medications List Reviewed: Yes Assessment And Plan - Current Problems (Diagnosis) (1) Tylenol toxicity Onset Date: 02/25/18 Current Visit: Yes Status: Acute Plan: Tylenol Toxicity. Patient taking Tylenol 1000mg every 4 to 6 hrs. Exacerbated with macrobid -Currently on Mucomyst PO 11/20 doses given -LFT improving today -GI consultation Unable at this time. -If LFt Continue to elevate then will consider transfer to for GI and hepatology coverage. -Possible DC in next 24 to 48 hrs Qualifiers: Encounter type: initial encounter Injury intent: accidental or unintentional Qualified Code(s): T39.1X1A - Poisoning by 4-Aminophenol derivatives, accidental (unintentional), initial encounter (2) Transaminitis Onset Date: 02/25/18 Current Visit: Yes Status: Acute Plan: Most Likely from medication SE (Macrobid vs Tylenol). Improving -AST/ALT ratio < 1 -Stop Macrobid and tylenol -IV fluids and Monitor Closely (3) Generalized rash Onset Date: 02/25/18 Current Visit: Yes Status: Acute Plan: Likely secondary to Macrobid. Improving -status post Solu-Medrol in the ER -Prednisone 10mg daily -Continue to monitor closely (4) HTN (hypertension) Onset Date: 02/25/18 Current Visit: Yes Status: Chronic Plan: Restart home medication at this time Qualifiers: Hypertension type: essential hypertension Qualified Code(s): I10 - Essential (primary) hypertension (5) Hypothyroidism Onset Date: 02/25/18 Current Visit: Yes Status: Chronic Plan: Restart home medication at this time Qualifiers: Hypothyroidism type: acquired Qualified Code(s): E03.9 - Hypothyroidism, unspecified - Plan Pending Clinical Improvement Discharge Plan: Home Plan to discharge in: 24 Hours - Code Status/Comfort Care Code Status Assessed: Yes Critical Care: No
[2018-02-27 22:44] VITALS: O2SAT 96
[2018-02-28] MEDS: NA CHLORIDE 0.9% 1,000 ML IV SCH ×2 (02:33→10:38)
[2018-02-28] MEDS: ACETYLCYST 6,000 MG/30 ML VIAL PO SCH ×4 (02:33→15:25)
[2018-02-28] MEDS: LEVOTHYROXINE SOD 0.075 MG TAB PO SCH (06:05)
[2018-02-28] MEDS: predniSONE 10 MG TAB PO SCH (08:38)
[2018-02-28] MEDS: METOPROLOL XL 25 MG TAB PO SCH (08:38)
[2018-02-28] MEDS: hydroCHLOROthiazide 25 MG TAB PO SCH (08:39)
[2018-02-28 09:47] LABS: Absolute Monocytes 1.2 K/uL (0.1-1.3); Absolute Neutrophil 2.6 K/uL (1.8-8.0); Basophils % 0.4 % (0-1.3); Eosinophils % 1.9 % (0-4.4); Hematocrit 39.1 % (36.0-45.0); Lymphocytes % 50.6 % (15.3-44.8); MPV 7.3 fL (7.6-11.3); Monocytes % 14.5 % (3.3-12.3); RBC Red Blood Cell Count 4.26 M/uL (3.86-4.86)
[2018-02-28 10:06] LABS: AST/SGOT 117 U/L (15-37); Albumin 2.7 g/dL (3.4-5.0); Alkaline Phosphatase 47 U/L (45-117); BUN Blood Urea Nitrogen 9 mg/dL (7-18); Bicarbonate 30 mmol/L (21-32); Bilirubin Total 0.2 mg/dL (0.2-1.0); Glucose Level 107 mg/dL (74-106); Magnesium 2.2 mg/dL (1.8-2.4); Potassium 3.4 mmol/L (3.5-5.1); Protein, Total 5.9 g/dL (6.4-8.2); Sodium Level 144 mmol/L (136-145)
[2018-02-28 10:08] LABS: ALT/SGPT 376 U/L (12-78)
[2018-02-28 10:55] LABS: Blood Morphology Comment NOT SEEN (NOT SEEN); Platelet Estimate ADEQ
--- NOTE | 2018-02-28 13:04 | P.DS ---
Admission Date: 02/27/18 Discharge Date: 02/28/18 Primary Care Provider: ADIEL Hernandez Disposition: ROUTINE DISCHARGE Discharge Condition: GOOD Reason for Admission: Medication SE Consultations: none Procedures: CXR: COMPARISON: Chest Single View dated 05/07/2017; Chest Pa And Lat (2 Views) dated 05/03/2017; Chest Pa And Lat (2 Views) dated 09/09/2015; CHEST SINGLE VIEW dated ; Abdomen Pelvis W Contrast dated 02/23/2018 FINDINGS: Portable technique limits examination quality. The lungs are grossly clear. The heart is normal in size. No displaced fractures. IMPRESSION: No acute intrathoracic process suspected. ABUS: COMPARISON: none FINDINGS: The liver has a homogeneous echotexture. A gallstone is not seen. The gallbladder wall is not thickened. Common bile duct measures 7 millimeters The pancreas normal in size and echotexture The right kidney measures 10 centimeters with a normal echotexture. The left kidney measures 10 centimeters with a normal echotexture. The spleen measures 10 centimeters. The abdominal aorta and inferior vena cava appear unremarkable IMPRESSION: Borderline dilatation of the common bile duct. Otherwise unremarkable exam Medical Problem List: Medication reaction likely related to Tylenol, antibiotics-Bactrim/Macrobid and Statin medication with noted elevated liver function test Rash likely medication reaction Hypertension Hypothyroidism Hyperlipidemia Brief History of Present Illness: 62-year-old female with history of hypertension, hyperlipidemia and hypothyroidism. Patient presented emergency room with generalized a rash. Patient recently seen by her PCP for UTI. Patient was recently given Bactrim DS. Symptoms did not resolve. She came to the emergency room and given a prescription for Macrobid and MiraLax for constipation. Patient continued to have difficulty with low-grade fever and rash. Patient found to have elevated liver function tests. Patient was admitted for further evaluation. Hospital Course: Patient presented with generalized rash and worsening UTI symptoms. This was complicated with a course of outpatient therapy for UTI including Bactrim, Macrobid, and Tylenol. Patient found to have elevated liver function test. This was likely medication related. Patient also taking statin medication- Zocor for hyperlipidemia. Rash was also likely related to medication reaction. Patient was admitted for treatment with IV fluids and Mucomyst. Liver function tests have improved and are declining to normal. Patient without any symptoms at this time. At discharge Bactroban, Macrobid and Tylenol have been discontinued. Recommendation to recheck CMP in 1 week to monitor resolution. Hepatitis panel pending at discharge. This can be followed up as an outpatient. UTI prevention education will be provided. Please note at discharge Zocor has been discontinued due to elevated liver function tests. Patient will follow up with her PCP to consider restart of medication once liver function tests back to normal. Patient reports mild shows since taking medication-Zocor. Patient has hypertension. She will continue with her medications hydrochlorothiazide 25 mg daily and metoprolol XL 25 mg daily. Recommendation is to maintain blood pressures less 150/80. Further adjustment can be done by her PCP. Patient has hypothyroidism. Patient will continue with her medication levothyroxine 75 mcg daily. Vital Signs/Physical Exam: Temp Pulse Resp BP Pulse Ox 98.2 F 82 18 142/80 H 96 02/28/18 08:00 02/28/18 08:39 02/28/18 08:00 02/28/18 08:39 02/28/18 08:00 General: Alert, In no apparent distress, Oriented x3, Cooperative HEENT: Atraumatic, Mucous membr. moist/pink Neck: Supple, No Thyromegaly Respiratory: Clear to auscultation bilaterally, Normal air movement Cardiovascular: Normal pulses, Regular rate/rhythm Gastrointestinal: Normal bowel sounds, Soft and benign, Non-distended, No tenderness, No masses, No rebound, No guarding Musculoskeletal: No erythema, No tenderness, No warmth Integumentary: No erythema, No warmth, No cyanosis Neurological: Normal speech, Normal strength at 5/5 x4 extr, Normal tone Laboratory Data at Discharge: WBC 8.0 K/uL (4.3-10.9) D 02/28/18 09:21 Hgb 12.9 g/dL (12.0-15.0) 02/28/18 09:21 Hct 39.1 % (36.0-45.0) 02/28/18 09:21 Plt Count 204 K/uL (152-406) 02/28/18 09:21 PT 13.2 SECONDS (9.5-12.5) H 02/25/18 11:06 INR 1.12 02/25/18 11:06 Sodium 144 mmol/L (136-145) 02/28/18 09:21 Potassium 3.4 mmol/L (3.5-5.1) L 02/28/18 09:21 BUN 9 mg/dL (7-18) 02/28/18 09:21 Creatinine 0.62 mg/dL (0.55-1.3) 02/28/18 09:21 Glucose 107 mg/dL (74-106) H 02/28/18 09:21 Magnesium 2.2 mg/dL (1.8-2.4) 02/28/18 09:21 Total Bilirubin 0.2 mg/dL (0.2-1.0) 02/28/18 09:21 AST 117 U/L (15-37) H D 02/28/18 09:21 ALT 376 U/L (12-78) H* D 02/28/18 09:21 Alkaline Phosphatase 47 U/L (45-117) 02/28/18 09:21 Home Medications: Levothyroxine Sodium 1 tab PO DAILY 02/25/18 Metoprolol Succinate [Toprol Xl*] 25 mg PO DAILY 02/25/18 hydroCHLOROthiazide [Hydrochlorothiazide] 1 tab PO DAILY 02/25/18 Patient Discharge Instructions: 1. Patient will follow up with her PCP within 1 week to follow up this hospitalization. 2. Patient presented with generalized rash and worsening UTI symptoms. This was complicated with a course of outpatient therapy for UTI including Bactrim, Macrobid, and Tylenol. Patient found to have elevated liver function test. This was likely medication related. Patient also taking statin medication-Zocor for hyperlipidemia. Rash was also likely related to medication reaction. Patient was admitted for treatment with IV fluids and Mucomyst. Liver function tests have improved and are declining to normal. Patient without any symptoms at this time. At discharge Bactroban, Macrobid and Tylenol have been discontinued. Recommendation to recheck CMP in 1 week to monitor resolution. Hepatitis panel pending at discharge. This can be followed up as an outpatient. UTI prevention education will be provided. Please note at discharge Zocor has been discontinued due to elevated liver function tests. Patient will follow up with her PCP to consider restart of medication once liver function tests back to normal. Patient reports mild shows since taking medication-Zocor. 3. Patient has hypertension. She will continue with her medications hydrochlorothiazide 25 mg daily and metoprolol XL 25 mg daily. Recommendation is to maintain blood pressures less 150/80. Further adjustment can be done by her PCP. 4. Patient has hypothyroidism. Patient will continue with her medication levothyroxine 75 mcg daily. Diet: AHA Activity: Ad domenico Time spent managing pt's care (in minutes): 55
[2018-02-28 18:32] VITALS: BP 139/85; TEMP 98.4
[2018-03-01 13:12] LABS: HBsAG Nonreactive (Nonreactive); Hepatitis A IgM Antibody Nonreactive
== END 2018-02-28 17:50 | disposition home or self-care (01) | DRG 918 ==
LOC: ER 09:31 → ERHOLD 13:47 → 4TH 14:54 → OBSVTOIN 02-27 13:47
PROVIDERS: ADMIT Family Medicine; ATTEND Family Medicine
DX: T39.1X1A Poisoning by 4-Aminophenol derivatives, accidental (unintentional), initial encounter (principal); N39.0 Urinary tract infection, site not specified; T37.8X1A Poisoning by other specified systemic anti-infectives and antiparasitics, accidental (unintentional), initial encounter; R74.0 Nonspecific elevation of levels of transaminase and lactic acid dehydrogenase [LDH]; L27.0 Generalized skin eruption due to drugs and medicaments taken internally; Y92.019 Unspecified place in single-family (private) house as the place of occurrence of the external cause; I10 Essential (primary) hypertension; E03.9 Hypothyroidism, unspecified; E78.5 Hyperlipidemia, unspecified
CPT/HCPCS: 36415; 51702; 71045; 76700; 80048; 80053; 80074; 80076; 81003; 81015; 83605; 83735; 83880; 84145; 84484; 85025; 85610; 87040; 87070; 87081; 87086; 87088; 93005; 96374; 96375; 99285; J2920; J3410; J7030; J7512

== ENCOUNTER 2019-04-27 10:33 | Emergency (ER) | payer OTHER ==
--- OUTSIDE RECORDS SUMMARY | 2019-04-27 10:36 | XMS REPORT ---
:1955 Author Organization [facility] Address [address] [place] [address] [address] Care Team Providers Name Role Phone DR ALEXANDRA PENALOZA Unavailable Unavailable Problems This patient has no known problems. Allergies, Adverse Reactions, Alerts This patient has no known allergies or adverse reactions. Medications This patient has no known medications. Encounters Start End Encounter Admission Attending Care Care Encounter Date/Time Date/Time Type Type Clinicians Facility Department ID 2016-07-07 2016-07-07 Outpatient C SCAR PENALOZA [facility] [place] [id number] 04:47:00 08:30:00 ALEXANDRA
[2019-04-27] MEDS ORDERED: dexAMETHasone 4 MG/ML VIAL ONE (12:04)
[2019-04-27] MEDS ORDERED: DIAZEPAM 5 MG TABLET ONE (12:04)
--- NOTE | 2019-04-27 12:46 | ER ---
Nurse's Notes [facility] Name: Maryellen Reed Age: 63 yrs Sex: Female : 1955 Arrival Date: 04/27/2019 Time: 10:36 Bed 16 Private MD: Diagnosis: Strain of muscle, fascia and tendon at neck level Presentation: 04/27 10:38 Presenting complaint: Patient states: Started having right shoulder and right neck pain rb1 on now the pain is on the left side as well. Transition of care: patient was not received from another setting of care. 10:38 Method Of Arrival: Ambulatory rb1 10:38 Onset of symptoms was April 25, 2019. Risk Assessment: Do you want to hurt yourself rb1 or someone else? Patient reports no desire to harm self or others. Initial Sepsis Screen: Does the patient meet any 2 criteria? No. Patient's initial sepsis screen is negative. Care prior to arrival: None. 10:38 Acuity: BERYL 3 rb1 Triage Assessment: 10:38 General: Appears uncomfortable, Behavior is calm, cooperative. Neuro: Level of rb1 Consciousness is awake, alert, obeys commands, Oriented to person, place, time, situation, Reports headache frontal area. Cardiovascular: Capillary refill < 3 seconds is brisk in bilateral fingers. Respiratory: Airway is patent Respiratory effort is even, unlabored, Respiratory pattern is regular, symmetrical. Derm: Skin is pink, warm \T\ dry. Historical: - Allergies: 10:38 Bactrim; rb1 - Home Meds: 10:38 hydrochlorothiazide 25 mg Oral tab 1 tab once daily [Active]; levothyroxine 75 mcg tab rb1 1 tab once daily [Active]; simvastatin 20 mg Oral tab 1 tab once daily [Active]; Metoprolol Tartrate 12.5 MG Oral once daily [Active]; 11:54 escitalopram oxalate 10 mg oral tab 1 tab once daily [Active]; ph - PMHx: 10:38 Heart Murmur; Hyperlipidemia; Hypothyroidism; rb1 - PSHx: 10:38 Knee surgery; gastric sleeve; Carpal Tunnel Repair; foot; Hysterectomy; rb1 - Immunization history:: Adult Immunizations up to date. - Coronavirus screen:: The patient has NOT traveled to [place] in the past 14 days. The patient has NOT had contact with known/suspected case of Coronavirus?. - Social history:: Smoking status: Patient/guardian denies using. - Ebola Screening: : Patient negative for fever greater than or equal to 101.5 degrees Fahrenheit, and additional compatible Ebola Virus Disease symptoms. Screenin:15 Abuse screen: Denies threats or abuse. Denies injuries from another. Nutritional ph screening: No deficits noted. Tuberculosis screening: No symptoms or risk factors identified. Fall Risk None identified. Assessment: 11:30 General: Appears in no apparent distress. uncomfortable, Behavior is calm, cooperative, ph appropriate for age. Pain: Complains of pain in back Pain radiates to right trapezius and left trapezius. Neuro: Level of Consciousness is awake, alert, obeys commands, Oriented to person, place, time, situation. Cardiovascular: Capillary refill < 3 seconds in bilateral fingers Patient's skin is warm and dry. Respiratory: Airway is patent Respiratory effort is even, unlabored, Respiratory pattern is regular, symmetrical. Derm: Skin is intact, is healthy with good turgor, Skin is pink, warm \T\ dry. Musculoskeletal: Circulation, motion, and sensation intact. Range of motion: intact in all extremities. Vital Signs: 10:38 BP 144 / 90; Pulse 74; Resp 19; Temp 97.6(O); Pulse Ox 96% on R/A; Weight 111.13 kg rb1 (R); Height 5 ft. 5 in. (165.10 cm) (R); Pain 10/10; 11:35 BP 138 / 84; Pulse 76; Resp 18; Temp 97.8; Pulse Ox 99% on R/A; ph 10:38 Body Mass Index 40.77 (111.13 kg, 165.10 cm) rb1 ED Course: 10:36 Patient arrived in ED. ag5 10:43 Reji Nunze NP is PHCP. pm1 10:43 Rene Pollard MD is Attending Physician. pm1 10:47 Triage completed. rb1 10:57 Lou Serra RN is Primary Nurse. ph 11:15 Arm band placed on. ph 12:16 Patient has correct armband on for positive identification. Pulse ox on. NIBP on. Door ph closed. Warm blanket given. 12:16 No provider procedures requiring assistance completed. Patient did not have IV access ph during this emergency room visit. Administered Medications: 12:10 Drug: Valium 5 mg Route: PO; ph 12:45 Follow up: Response: No adverse reaction; Pain is decreased ph 12:10 Drug: Decadron 10 mg Route: IM; Site: left deltoid; ph 12:45 Follow up: Response: No adverse reaction; Pain is decreased ph Outcome: 12:45 Discharge ordered by . pm1 12:59 Patient left the ED. ph 12:59 Discharged to home ambulatory, with significant other. ph 12:59 Condition: good 12:59 Discharge instructions given to patient, Instructed on discharge instructions, follow up and referral plans. medication usage, Demonstrated understanding of instructions, follow-up care, medications, Prescriptions given X 2. Signatures: Lou Serra RN RN ph Barber, Rebecca, RN RN rb1 Marinas, Patrick, NP STUDIO ASSISTANT pm1 Fer Mcknight ag5
--- NOTE | 2019-04-27 12:47 | EDPHYS ---
Physician Documentation [facility] Name: Maryellen Reed Age: 63 yrs Sex: Female : 1955 Arrival Date: 04/27/2019 Time: 10:36 Bed 16 Private MD: ED Physician Rene Pollard HPI: 04/27 11:14 This 63 yrs old Female presents to ER via Ambulatory with complaints of Neck pm1 Pain, >24Hrs Old. 11:14 The patient or guardian complains of pain, that is acute. The symptoms are located on pm1 the left trapezius and right trapezius. Onset: The symptoms/episode began/occurred 2 day(s) ago. Context: The neck injury/problem resulted from possibly sleeping on her other side. 17:11 Associated signs and symptoms: Pertinent negatives: fever, numbness, tingling. pm1 17:11 The pain does not radiate. Modifying factors: The symptoms are alleviated by remaining pm1 still, the symptoms are aggravated by movement. Severity of symptoms: in the emergency department the symptoms are unchanged. The patient has not experienced similar symptoms in the past. It is unknown whether or not the patient has recently seen a physician. Historical: - Allergies: 10:38 Bactrim; rb1 - Home Meds: 10:38 hydrochlorothiazide 25 mg Oral tab 1 tab once daily [Active]; levothyroxine 75 mcg tab rb1 1 tab once daily [Active]; simvastatin 20 mg Oral tab 1 tab once daily [Active]; Metoprolol Tartrate 12.5 MG Oral once daily [Active]; 11:54 escitalopram oxalate 10 mg oral tab 1 tab once daily [Active]; ph - PMHx: 10:38 Heart Murmur; Hyperlipidemia; Hypothyroidism; rb1 - PSHx: 10:38 Knee surgery; gastric sleeve; Carpal Tunnel Repair; foot; Hysterectomy; rb1 - Immunization history:: Adult Immunizations up to date. - Coronavirus screen:: The patient has NOT traveled to [place] in the past 14 days. The patient has NOT had contact with known/suspected case of Coronavirus?. - Social history:: Smoking status: Patient/guardian denies using. - Ebola Screening: : Patient negative for fever greater than or equal to 101.5 degrees Fahrenheit, and additional compatible Ebola Virus Disease symptoms. ROS: 17:11 Constitutional: Negative for fever, chills, and weight loss. pm1 17:11 Cardiovascular: Negative for chest pain, palpitations, and edema, Respiratory: Negative for shortness of breath, cough, wheezing, and pleuritic chest pain, Abdomen/GI: Negative for abdominal pain, nausea, vomiting, diarrhea, and constipation, Back: Negative for injury and pain, MS/Extremity: Negative for injury and deformity, Skin: Negative for injury, rash, and discoloration, Neuro: Negative for headache, weakness, numbness, tingling, and seizure. 17:11 Neck: Positive for pain with movement, tenderness, of the right trapezius and left trapezius, Negative for bony tenderness. Exam: 17:11 Constitutional: This is a well developed, well nourished patient who is awake, alert, pm1 and in no acute distress. Head/Face: Normocephalic, atraumatic. 17:11 Chest/axilla: Normal chest wall appearance and motion. Nontender with no deformity. No lesions are appreciated. Cardiovascular: Regular rate and rhythm with a normal S1 and S2. No gallops, murmurs, or rubs. Normal PMI, no JVD. No pulse deficits. Respiratory: Lungs have equal breath sounds bilaterally, clear to auscultation and percussion. No rales, rhonchi or wheezes noted. No increased work of breathing, no retractions or nasal flaring. Back: No spinal tenderness. No costovertebral tenderness. Full range of motion. Skin: Warm, dry with normal turgor. Normal color with no rashes, no lesions, and no evidence of cellulitis. MS/ Extremity: Pulses equal, no cyanosis. Neurovascular intact. Full, normal range of motion. 17:11 Neck: External neck: tenderness, that is moderate, of the left trapezius and right trapezius, C-spine: vertebral tenderness, is not appreciated. 17:11 Neuro: Orientation: is normal, Motor: is normal, moves all fours, Gait: is steady, at a normal pace, without difficulty. Vital Signs: 10:38 BP 144 / 90; Pulse 74; Resp 19; Temp 97.6(O); Pulse Ox 96% on R/A; Weight 111.13 kg rb1 (R); Height 5 ft. 5 in. (165.10 cm) (R); Pain 10/10; 11:35 BP 138 / 84; Pulse 76; Resp 18; Temp 97.8; Pulse Ox 99% on R/A; ph 10:38 Body Mass Index 40.77 (111.13 kg, 165.10 cm) rb1 MDM: 10:44 Patient medically screened. pm1 12:44 Data reviewed: vital signs. Data interpreted: Pulse oximetry: on room air is 96 %. pm1 Interpretation: normal. Counseling: I had a detailed discussion with the patient and/or guardian regarding: the historical points, exam findings, and any diagnostic results supporting the discharge/admit diagnosis, the need for outpatient follow up, to return to the emergency department if symptoms worsen or persist or if there are any questions or concerns that arise at home. Administered Medications: 12:10 Drug: Valium 5 mg Route: PO; ph 12:45 Follow up: Response: No adverse reaction; Pain is decreased ph 12:10 Drug: Decadron 10 mg Route: IM; Site: left deltoid; ph 12:45 Follow up: Response: No adverse reaction; Pain is decreased ph Disposition: 14:21 Co-signature as Attending Physician, Rene Pollard MD. rn Disposition: 04/27/19 12:45 Discharged to Home. Impression: Strain of muscle, fascia and tendon at neck level. - Condition is Stable. - Discharge Instructions: Muscle Strain, Acute Torticollis, Adult. - Prescriptions for Valium 5 mg Oral Tablet - take 1 tablet by ORAL route every 8 hours As needed; 20 tablet. Medrol (Juma) 4 mg Oral Tablets, Dose Pack - take 1 tablet by ORAL route as directed - follow package instructions; 1 packet. - Medication Reconciliation Form, Thank You Letter, Antibiotic Education, Prescription Opioid Use form. - Follow up: Emergency Department; When: As needed; Reason: Worsening of condition. Follow up: Private Physician; When: 2 - 3 days; Reason: Recheck today's complaints, Continuance of care, Re-evaluation by your physician. - Problem is new. - Symptoms have improved. Signatures: Rene Pollard MD MD rn Hall, Patricia, RN RN ph Barber, Rebecca, RN RN rb1 Marinas, Patrick, [employer] REP pm1 Corrections: (The following items were deleted from the chart) 12:59 12:45 04/27/2019 12:45 Discharged to Home. Impression: Strain of muscle, fascia and ph tendon at neck level. Condition is Stable. Forms are Medication Reconciliation Form, Thank You Letter, Antibiotic Education, Prescription Opioid Use. Follow up: Emergency Department; When: As needed; Reason: Worsening of condition. Follow up: Private Physician; When: 2 - 3 days; Reason: Recheck today's complaints, Continuance of care, Re-evaluation by your physician. Problem is new. Symptoms have improved. pm1
[2019-04-27 13:13] VITALS: BP 144/90; TEMP 97.6; O2SAT 96
== END 2019-04-27 12:59 | disposition home or self-care (01) ==
LOC: ER 10:33
DX: S16.1XXA Strain of muscle, fascia and tendon at neck level, initial encounter (principal); X58.XXXA Exposure to other specified factors, initial encounter; Z88.1 Allergy status to other antibiotic agents; E03.9 Hypothyroidism, unspecified; E78.5 Hyperlipidemia, unspecified
CPT/HCPCS: 96372; 99283

== ENCOUNTER 2022-02-18 09:46 | Emergency (ER) | payer OTHER ==
--- OUTSIDE RECORDS SUMMARY | 2022-02-18 09:50 | XMS REPORT | Continuity of Care Document ---
:1955 Author Organization [facility] t Address [address] [place] [address] Care Team Providers Name Role Phone Palmira Goode Attending Clinician Unavailable KATERINA MIRZA Attending Clinician Unavailable LAB90 Attending Clinician Unavailable COVID-PFIZER VACC, [place] Attending Clinician UnavailELIANE Christian Attending Clinician Unavailable DR ALEXANDRA PENALOZA Attending Clinician Unavailable Palmira Goode Admitting Clinician Unavailable ELIANE HEMPHILL Admitting Clinician Unavailable DR ALEXANDRA PENALOZA Admitting Clinician Unavailable Payers Payer Name Policy Type Policy Number Effective Date Expiration Date Neville MCCORMACK [place] PPO 5 [id number] 2021 00:00:00 Problems Condition Condition Condition Status Onset Resolution Last Treating Co mments Source Name Details Category Date Date Treatment Clinician Date Anxiety Anxiety Disease Active 2021-03 Aminata 0-10 Seybold 00:00: - 00 Externa l Hyperlipid Hyperlipid Disease Active 2021-03 K gerhard emia emia 0-10 Seybold 00:00: - 00 Externa l Hypothyroi Hypothyroi Disease Active 2021-03 Natalya hennessy dism dism 0-10 Seybold (acquired) (acquired) 00:00: - 00 Externa l Primary Primary Disease Active 2021-03 Aminata hypertensi hypertensi 0-10 Se ybold on on 00:00: - 00 Externa l Gastroesop Gastroesop Disease Active 2021-03 Natalya elsemagdalena hageal hageal 0-10 Seybold reflux reflux 00:00: - disease disease 00 Externa without without l esophagiti esophagiti s s Allergies, Adverse Reactions, Alerts Allergy Allergy Status Severity Reaction(s) Onset Inactive Treating Comm ents Source Name Type Date Date Clinician Na Propensi Active Hives 2021-03 Aminata Benzoate ty to 0-10 Seybold -Sulfame adverse 00:00: - thoxazol reaction 00 [employer] Consultant a e-Trimet s l hoprim Tylenol Propensi Active 2021-03 PATIENT Aminata ty to 0-10 STATES Seybold adverse 00:00: SHE FELT - reaction 00 HORRIBLE [employer] Consultant a s AND WENT l TO THE ER Acetamin Propensi Active Aminata jacksonen ty to 7 Seybold Injectio adverse 00:00: - n reaction 00 Externa s l sulfamet DA Active [facility] hoxazole 7- [place] 00:[facility]: d 00 [facility] trimetho DA Active [facility] prim 7-29 [place] 00:00: d 00 [facility] trimetho DA Active SV hives [facility] prim breakout 7-29 [place] itchiness 00:00: d 00 [facility] sulfamet DA Active SV hives 0 [facility] hoxazole breakout 10-01 [place] itchiness 00:00: d 00 [facility] Sulfamet Propensi Active Aminata hoxazole ty to 03-07 Seybold W-Trimet adverse 00:00: - hoprim reaction 00 Externa s l No Known DA Active U 2008-03 [facility] Intolera 2-30 [place] [facility] No Known DA Active U 2008-03 [facility] Intolera 2-30 [place] [facility] 00:[facility]: d [facility] Social History Social Habit Start Date Stop Date Quantity Comments Source History BAILEY andrade - Alcohol Frequency Externa l History BAILEY andrade - Alcohol Std Drinks [employer] Consultant al History BAILEY andrade - Alcohol Binge External Alcohol intake 2021-12-13 2021-12-13 Current drinker Kelse y Seybold - 00:00:00 00:00:00 of alcohol External (finding) Alcohol Comment 2021-12-13 2021-12-13 SOCIAL Aminata crandall - 00:00:00 00:00:00 External Sex [birth year] Aminata crandall - 00:00:00 00:00:00 External Smoking Status Start Date Stop Date Source Ex-smoker 2021-12-13 00:00:00 2021-12-13 00:00:00 Aminata tijerinaboraymond - External Medications Ordered Filled Start Stop Current Ordering Indication Dosage Frequency Signature Comments Components Source Medication Medication Date Date Medication? Clinician (SIG) Name Name Calcium 2021-03 Yes 1{tbl} Take 1 Aminata Carbonate-V 0-10 tablet by Marybel gavin itamin D 10:44: mouth - (Oyster 46 daily Externa Shell l Calcium/D) 500-5 MG-MCG oral Tablet Magnesium 2021-03 Yes Take by Kelse y 400 MG oral 0-10 mouth Seybold Capsule 10:44: - 46 Externa l Levothyroxi 2021-03 Yes 88ug Take 88 Armand sey ne Sodium 0-10 mcg by Seybold 88 MCG oral 10:44: mouth - Capsule 46 daily Externa l Pantoprazol 2021-03 Yes 40mg Take 40 mg Aminata e Sodium 40 0-10 by mouth Seyb old MG oral 10:44: daily - Pack 46 Externa l Potassium 2021-03 Yes Take by Alan y 99 MG oral 0-10 mouth Seybold Tablet 10:44: - 46 Externa l Torsemide 2021-03- No Aminata 20 MG oral 0-10 10-10 Seybold Tablet 10:44: 00:00 - 06 :00 Externa l Metoprolol Yes Aminata Succinate 7-03 Seybold 25 MG oral 00:00: - TABLET SR 00 Externa 24 HR l Ezetimibe Yes 10mg Take 10 mg Ke lsey 10 MG oral 5-31 by mouth Seybo ld Tablet 00:00: daily - 00 Externa l Torsemide Yes 25mg Take 25 mg Ke lsey 100 MG oral 5-31 by mouth Seyb old Tablet 00:00: daily - 00 Externa l Metoclopram 2021- No TAKE 2 Armand sey guerda HCl 10 4-21 10-10 TABLETS BY Se ybold MG oral 00:00: 00:00 MOUTH - Tablet 00 :00 DIRECTED Externa USE l DIRECTED PER YOUR COLONOSCOP Y PREP PACKET Chlorthalid Yes 1{tbl} Take 1 Ke lsey one 25 MG 4-07 tablet by Seluis mo ld oral Tablet 00:00: mouth - 00 every Externa morning l Escitalopra Yes 10mg Take 10 mg Aminata francis Oxalate 4-07 by mouth Seybol d 10 MG oral 00:00: daily - Tablet 00 Externa l Immunizations Ordered Immunization Filled Immunization Date Status Commen ts Source Name Name Influenza Virus 2021-12-13 Completed Aminata crandall Vaccine, 00:00:00 - External Quadrivalent, High Dose, Age 65 And Up COVID-19 VACCINE 2021-12-13 Completed Aminata wilson PFIZER 12+ ([place] 00:00:00 - [employer] Materials Consultant al cap) Influenza vaccine, 2021-01-15 Completed Aminata Bhagat quadrivalent, 00:00:00 - External adjuvanted Pneumococcal 2021-01-15 Completed Amintaa Hinkle ld Vaccine, Conjugate 00:00:00 - Exte rnal 13 Shingles IM 2020-03-28 Completed Aminata Hogueol d (Shingrix) 00:00:00 - External Shingles IM 2019-12-08 Completed Aminata Roachybol d (Shingrix) 00:00:00 - External Influenza, 2017-12-13 Completed Aminata Bhagat Injectable, Mdck, 00:00:00 - Exter nal Preservative Free, Quadrivalt Vital Signs Vital Name Observation Time Observation Value Comments Source Systolic blood 2021-12-13 15:34:00 140 mm[Hg] Aminata Bhagat - pressure External Diastolic blood 2021-12-13 15:34:00 78 mm[Hg] Alan Bhagat - pressure External Heart rate 2021-12-13 15:34:00 95 /min Aminata wilson - External Body temperature 2021-12-13 15:34:00 35.39 Conchita Elly ey Seybold - External Respiratory rate 2021-12-13 15:34:00 16 /min Elly tijerina Seybold - External Body height 2021-12-13 15:34:00 165.1 cm Aminata Noriega eybold - External Body weight 2021-12-13 15:34:00 116.574 kg Aminata Noriega eyboraymond - External BMI 2021-12-13 15:34:00 42.77 kg/m2 Aminata Noriega eyboraymond - External Procedures This patient has no known procedures. Encounters Start End Encounter Admission Attending Care Care Encounter Source Date/Time Date/Time Type Type Clinicians Facility Department ID 2019-10-02 Inpatient LATRICIA Goode CATH [id number] [facility] 14:00:00 Palmira 80 [facility] 2022-01-11 2022-01-11 Outpatient AMINATA MIRZA [id number] Aminata 00:00:00 00:00:00 KATERINASADIA Hogueol d 2022-01-11 2022-01-11 Outpatient AMINATA MIRZA [id number] Aminata 00:00:00 00:00:00 KATERINA Seybol d 2021-12-20 2021-12-20 Outpatient AMINATA MIRZA [id number] Aminata 00:00:00 00:00:00 KATERINA Seybol d 2021-12-15 2021-12-15 Outpatient AMINATA MIRZA [id number] Aminata 00:00:00 00:00:00 KATERINA Seybol d 2021-12-13 2021-12-13 Outpatient LAB90 AMINATA KIRK [id number] Aminata 12:05:00 12:05:00 Seybol d 2021-12-13 2021-12-13 Outpatient COVID-PFIZE AMINATA KIRK [id number] Aminata 11:20:00 11:20:00 R VACC, Seybol silvia FILION 2021-12-13 2021-12-13 Outpatient AMINATA MIRZA [id number] Aminata 10:45:00 10:45:00 KATERINA Seybol d 2020-11-19 2020-11-19 Outpatient RAYMOND HEMPHILL [facility] [id number] [id number] [facility] 12:00:00 12:00:00 ELIANE 85 [facility] 2019-09-28 2019-09-28 Outpatient DC GoodeU SURG [id number] [facility] 08:00:00 08:00:00 Salim 14 [facility] 2016-07-07 2016-07-07 Outpatient Crispin CURTISDerek, [facility] [id number] [facility] 04:47:00 08:30:00 [facility] Results Test Description Test Time Test Comments Results Result Comments Source CBC W/AUTO DIFF 2019-10-02 12:54:00 Test Item Value Reference Range Interpretation Comme nts WHITE BLOOD CELL (test code = 6.3 K/mm3 3.5-11.0 N WBC) RED BLOOD CELL (test code = 4.60 M/mm3 4.70-6.10 L RBC) HEMOGLOBIN (test code = HGB) 13.4 G/DL 10.4-14.9 N HEMATOCRIT (test code = HCT) 42.5 % 31.5-44.1 N MEAN CELL VOLUME (test code = 92.4 Fl 84.5-98.6 N MCV) MEAN CELL HGB (test code = MCH) 29.1 pg 27.0-34.2 N MEAN CELL HGB CONCETRATION 31.5 G/DL 31.5-34.0 N (test code = MCHC) RED CELL DISTRIBUTION WIDTH 13.9 SD 11.5-14.5 N (test code = RDW) PLATELET COUNT (test code = 264 K/mm3 150-450 N PLT) MEAN PLATELET VOLUME (test code 9.30 fL 7.0-10.5 N = MPV) NEUTROPHIL % (test code = NT%) 62.5 % 40-76 N IMMATURE GRANULOCYTE % (test 0.3 % 0.0-5.0 N code = IG%) LYMPHOCYTE % (test code = LY%) 26.2 % 20.5-51.1 N MONOCYTE % (test code = MO%) 8.3 % 1.7-9.3 N EOSINOPHIL % (test code = EO%) 2.1 % 0.0-6.0 N BASOPHIL % (test code = BA%) 0.6 % 0.0-2.0 N NUCLEATED RBC % (test code = 0.0 /100WBC% 0.0-1.0 N NRBC%) NEUTROPHIL # (test code = NT#) 3.9 K/mm3 1.8-7.6 N IMMATURE GRANULOCYTE # (test 0.02 x10 3/uL 0.00-0.03 N code = IG#) LYMPHOCYTE # (test code = LY#) 1.7 K/mm3 0.6-3.2 N MONOCYTE # (test code = MO#) 0.5 K/mm3 0.3-1.1 N EOSINOPHIL # (test code = EO#) 0.1 K/mm3 0.0-0.4 N BASOPHIL # (test code = BA#) 0.0 K/mm3 0.0-0.1 N NUCLEATED RBC # (test code = 0.0 K/mm3 0.0-0.1 N NRBC#) MANUAL DIFF REQUIRED (test code NO DIFF/SCN CRITERIA SLIDE REVIEW CONSISTANT WITH = MDIFF) AUTO DIFFERENTI AL. COMPREHENSIVE METABOLIC [id number] 12:54:00 Test Item Value Reference Range Interpretation Comments SODIUM (test code = NA) 138 mmol/L 134-147 N POTASSIUM (test code = 3.0 mmol/L 3.4-5.0 L K) CHLORIDE (test code = 100 mmol/L 100-108 N CL) CARBON DIOXIDE (test 31 mmol/L 21-32 N code = CO2) ANION GAP (test code = 7.0 GAP calc 4.0-15.0 N GAP) GLUCOSE (test code = 95 MG/DL 70-110 N GLU) BLOOD UREA NITROGEN 23 MG/DL 7-18 H (test code = BUN) GLOMERULAR FILTRATION >=60 max estimate >60 RATE (test code = GFR) estGFR CREATININE (test code = 0.9 MG/DL 0.6-1.0 N CREAT) TOTAL PROTEIN (test code 7.6 G/DL 6.4-8.2 N = PROT) ALBUMIN (test code = 3.8 G/DL 3.4-5.0 N ALB) GLOBULIN (test code = 3.8 GM/dL GLOB) ALBUMIN/GLOBULIN RATIO 1.0 RATIO 1.2-2.2 L (test code = A/G) CALCIUM (test code = CA) 9.2 MG/DL 8.5-10.1 N BILIRUBIN TOTAL (test 0.50 MG/DL 0.2-1.2 N code = BILT) SGOT/AST (test code = 16 Unit/L 15-37 N AST) SGPT/ALT (test code = 21 Unit/L 12-78 N ALT) ALKALINE PHOSPHATASE 63 Unit/L 45-117 N TOTAL (test code = ALKP) LIPID PROFILE (CORONARY RISK)2019-10-02 12:54:00 Test Item Value Reference Range Interpretation Comments TRIGLYCERIDES (test code = TRIG) 94 MG/DL 0-150 N CHOLESTEROL (test code = CHOL) 184 MG/DL 133-200 N CHOLESTEROL/HDL RATIO (test code = 3.54 RATIO >0 CHOLHDL) HDL CHOLESTEROL (test code = HDL) 52 MG/DL 40-59 N NON-HDL CHOLESTEROL (test code = 132 mg/dL <130 H NHDL) LIPOPROTEIN LDL (test code = LDL) 117 MG/DL 0-129 N LDL/HDL (test code = LDL/HDL) 2.25 Ratio 1.48-3.22 Avg N PROTHROMBIN [id number] 12:33:00 Test Item Value Reference Range Interpretation Comments PT PATIENT (test code = PTP) 12.0 SECONDS 9.3-12.9 N INTERNATIONAL NORMAL RATIO 1.06 INR Unit 0.8-1.2 N (test code = INR) THROMBOPLASTIN TIME [id number] 12:33:00 Test Item Value Reference Range Interpretation Comments THROMBOPLASTIN TIME PARTIAL 30.4 SECONDS 26-35 N (test code = PTT) COVID 19 Asymptomatic IH [id number] 11:27:00 Test Item Value Reference Range Interpretation Comments COVID 19 Asymptomatic NEGATIVE Negative Per ma nufacturer, IH AG (test code = negative results should COVNONPUIAG) be treated aspresumptive a nd, if inconsistent wi th clinical signs andsymptoms or necessary for p atient management, merrill uld betested with a n alternative mol ecular assay. Negative resultsdo not p reclude SARS-CoV-2 infe ction and should not be usedas the sole basis for patient man agement decisions. Nega tive results should be considered in t he context of apat ient's recent exposure s, history, presen ce of clinicalsigns a nd symptoms consis tent with COVID-19.
[2022-02-18] MEDS ORDERED: NA CHLORIDE 0.9% 1,000 ML ONE (12:22)
[2022-02-18 12:45] LABS: Absolute Lymphocytes (CBC) 1.2 K/uL (0.7-4.9); Hematocrit 38.4 % (36.0-45.0); Lymphocytes % 21.6 % (15.3-44.8); MPV 7.1 fL (7.6-11.3); RBC Red Blood Cell Count 4.46 M/uL (3.86-4.86)
[2022-02-18 12:59] LABS: Albumin 3.7 g/dL (3.4-5.0); Bilirubin Total 0.4 mg/dL (0.2-1.0); Potassium 3.7 mmol/L (3.5-5.1); Protein, Total 7.6 g/dL (6.4-8.2)
[2022-02-18 13:20] LABS: SARS-COV-2 RT PCR NEGATIVE (NEGATIVE)
--- NOTE | 2022-02-18 13:44 | RAD REPORT ---
EXAM DESCRIPTION: CTAbdomen Pelvis W Contrast - 02/18/2022 1:30 pm CLINICAL HISTORY: Abdominal pain. abdominal pain COMPARISON: Abdomen Pelvis W Contrast dated 10/23/2018; Abdomen Pelvis W Contrast dated 8; Abdomen Pelvis W Contrast dated 05/03/2017; CT ABD PELVIS W CONTRAST dated 06/09/2012 TECHNIQUE: Biphasic CT imaging of the abdomen and pelvis was performed with 100 ml non-ionic IV cont rast. All CT scans are performed using dose optimization technique as appropriate and may include automated exposure control or mA/KV adjustment according to patient size. FINDINGS: The lung bases are clear.Postsurgical changes about the stomach with a small hiatal hernia . The liver, spleen, pancreas, adrenal glands and kidneys are within normal limits. No bowel obstruction, free air, free fluid or abscess. The appendix is normal. No evidence of signi ficant lymphadenopathy. Mild lumbosacral degenerative changes. IMPRESSION: No acute intra-abdominal or pelvic finding.
--- NOTE | 2022-02-18 14:35 | EDPHYS ---
Physician Documentation [facility] Name: Maryellen Reed Age: 66 yrs Sex: Female : 1955 Arrival Date: 02/18/2022 Time: 09:50 Bed 24 Private MD: Ariana Plummer ED Physician Alfredo aGrcia HPI: 02/18 10:55 This 66 yrs old Female presents to ER via Ambulatory with complaints of Diarrhea, jmm Chills. 10:55 Patient complains of abdominal pain,diarrhea beginning last night. Denies vomiting. . jmm 10:55 Onset: The symptoms/episode began/occurred gradually. This is a 66-year-old female with jmm a history of hyperlipidemia hypothyroidism hypertension the presents emerged part with complaints of left lower abdominal swelling with abnormal bowel movements. Patient states that her stools are liquidy but the patient still feels full after bowel movements. Denies fever. Denies vomiting.. Historical: - Allergies: 11:12 Bactrim; jl7 - PMHx: 11:12 Heart Murmur; Hyperlipidemia; Hypothyroidism; Hypertensive disorder; CHF; jl7 - Immunization history:: Client reports receiving the 2nd dose of the Covid vaccine. - Social history:: Smoking status: Patient denies any tobacco usage or history of. ROS: 10:55 Constitutional: Negative for fever, chills, and weight loss, Cardiovascular: Negative jmm for chest pain, palpitations, and edema, Respiratory: Negative for shortness of breath, cough, wheezing, and pleuritic chest pain. 10:55 Abdomen/GI: Positive for abdominal pain. 10:55 All other systems are negative. Exam: 10:55 Constitutional: This is a well developed, well nourished patient who is awake, alert, jmm and in no acute distress. Head/Face: atraumatic. Eyes: EOMI, no conjunctival erythema appreciated ENT: Moist Mucus Membranes Neck: Trachea midline, Supple Chest/axilla: Normal chest wall appearance and motion. Cardiovascular: Regular rate and rhythm. No edema appreciated Respiratory: Normal respirations, no respiratory distress appreciated Abdomen/GI: Non distended Back: Normal ROM Skin: General appearance color normal MS/ Extremity: Moves all extremities, no obvious deformities appreciated, no edema noted to the lower extremities Neuro: Awake and alert Psych: Behavior is normal, Mood is normal, Patient is cooperative and pleasant Vital Signs: 11:10 BP 149 / 79; Pulse 84; Resp 17; Temp 99; Pulse Ox 99% ; Weight 119.29 kg; Height 5 ft. jl7 5 in. (165.10 cm); Pain 3/10; 13:51 BP 148 / 88; Pulse 82; Resp 15; Pulse Ox 99% on R/A; hb 14:30 BP 138 / 82; Pulse 81; Resp 15; Pulse Ox 99% on R/A; hb 11:10 Body Mass Index 43.77 (119.29 kg, 165.10 cm) 7 MDM: 11:31 Patient medically screened. [facility] 14:34 Data reviewed: vital signs, nurses notes. Counseling: I had a detailed discussion with [facility] the patient and/or guardian regarding: the historical points, exam findings, and any diagnostic results supporting the discharge/admit diagnosis, the need for outpatient follow up, to return to the emergency department if symptoms worsen or persist or if there are any questions or concerns that arise at home. 02/18 10:55 Order name: CBC with Diff; Complete Time: 12:50 [facility] 02/18 10:55 Order name: CMP; Complete Time: 13:02 [facility] 02/18 10:55 Order name: Lipase; Complete Time: 13:02 [facility] 02/18 10:55 Order name: CT Abd/Pelvis - IV Contrast Only; Complete Time: 13:48 [facility] 02/18 10:55 Order name: COVID-19/FLU A+B; Complete Time: 13:21 [facility] 02/18 10:55 Order name: IV Saline Lock; Complete Time: 12:38 [facility] 02/18 10:55 Order name: Labs collected and sent; Complete Time: 12:38 [facility] Administered Medications: 12:32 Drug: NS 0.9% 1000 ml Route: IV; Rate: 1 bolus; Site: left antecubital; hb 13:45 Follow up: Response: No adverse reaction; IV Status: Completed infusion; IV Intake: hb 1000ml Disposition: 14:51 Co-signature as Attending Physician, Alfredo Garcia MD I agree with the assessment and rt plan of care. Disposition Summary: 02/18/22 14:35 Discharge Ordered Location: Home [facility] Condition: Stable [facility] Diagnosis - Other fecal abnormalities [facility] Followup: [facility] - With: Private Physician - When: 2 - 3 days - Reason: Recheck today's complaints, Continuance of care, Re-evaluation by your physician Discharge Instructions: - Discharge Summary Sheet [facility] Forms: - Medication Reconciliation Form [facility] - Thank You Letter gill - Antibiotic Education gill - Prescription Opioid Use gill Signatures: Dispatcher [employer] EDAlejandro Mcfadden PA PA jmm Baxter, Heather RN RN Jesus De La Rosa RN RN [email or web address] Alfredo Garcia MD MD rt Corrections: (The following items were deleted from the chart) 11:13 11:12 Allergies: NKA; jlMatthew liu
--- NOTE | 2022-02-18 14:35 | ER ---
Nurse's Notes [facility] Name: Maryellen Reed Age: 66 yrs Sex: Female : 1955 Arrival Date: 02/18/2022 Time: 09:50 Bed 24 Private MD: Ariana Plummer Diagnosis: Other fecal abnormalities Presentation: 02/18 11:10 Chief complaint: Patient states: Diarrhea x 1 week, chills since last night, feel jl7 "Full" in the abdomen. Coronavirus screen: Vaccine status: Patient reports receiving the 2nd dose of the covid vaccine. At this time, the client does not indicate any symptoms associated with coronavirus-19. Ebola Screen: No symptoms or risks identified at this time. Initial Sepsis Screen: Does the patient meet any 2 criteria? No. Patient's initial sepsis screen is negative. Does the patient have a suspected source of infection? No. Patient's initial sepsis screen is negative. Risk Assessment: Do you want to hurt yourself or someone else? Patient reports no desire to harm self or others. Onset of symptoms was February 17, 2022. 11:10 Method Of Arrival: Ambulatory [facility] 11:10 Acuity: BERYL 3 jl7 Triage Assessment: 11:12 General: Appears in no apparent distress. uncomfortable, Behavior is calm, cooperative, jl7 appropriate for age. Pain: Complains of pain in abdomen Pain currently is 3 out of 10 on a pain scale. GI: Reports diarrhea. Historical: - Allergies: 11:12 Bactrim; jl7 - PMHx: 11:12 Heart Murmur; Hyperlipidemia; Hypothyroidism; Hypertensive disorder; CHF; jl7 - Immunization history:: Client reports receiving the 2nd dose of the Covid vaccine. - Social history:: Smoking status: Patient denies any tobacco usage or history of. Screenin:34 Abuse screen: Denies threats or abuse. Denies injuries from another. Nutritional hb screening: No deficits noted. Tuberculosis screening: No symptoms or risk factors identified. Fall Risk Total Sampson Fall Scale indicates Low Risk Score (25-44 pts). Fall prevention measures have been instituted. Side Rails Up X 2 Frequent Obs/Assesments occuring As available Patient and Family Educated on Fall Prevention Program and strategies. 13:35 [facility] ED Fall Risk Assessment (Adult) History of falling in the last 3 months, hb including since admission No falls in past 3 months (0 pts) Confusion or Disorientation No (0 pts) Intoxicated or Sedated No (0 pts) Impaired Gait No (0 pts) Mobility Assist Device Used No (0 pt) Altered Elimination No (0 pt) Score/Fall Risk Level 0 - 2 = Low Risk Oriented to surroundings, Maintained a safe environment. Assessment: 12:25 General: Appears in no apparent distress. Behavior is calm, cooperative. hb 12:25 Pain: Pain currently is 2 out of 10 on a pain scale. Neuro: Level of Consciousness is hb awake, alert, obeys commands, Oriented to person, place, time, situation. Cardiovascular: Patient's skin is warm and dry. Respiratory: Respiratory effort is even, unlabored, Respiratory pattern is regular, symmetrical. GI: Reports cramping, diarrhea, nausea. : No signs and/or symptoms were reported regarding the genitourinary system. EENT: No signs and/or symptoms were reported regarding the EENT system. Derm: Skin is pink, warm \\T\\ dry. Musculoskeletal: No signs and/or symptoms reported regarding the musculoskeletal system. 14:30 Reassessment: Patient appears in no apparent distress at this time. Patient and/or hb family updated on plan of care and expected duration. Pain level reassessed. Patient is alert, oriented x 3, equal unlabored respirations, skin warm/dry/pink. Vital Signs: 11:10 BP 149 / 79; Pulse 84; Resp 17; Temp 99; Pulse Ox 99% ; Weight 119.29 kg; Height 5 ft. jl7 5 in. (165.10 cm); Pain 3/10; 13:51 BP 148 / 88; Pulse 82; Resp 15; Pulse Ox 99% on R/A; hb 14:30 BP 138 / 82; Pulse 81; Resp 15; Pulse Ox 99% on R/A; hb 11:10 Body Mass Index 43.77 (119.29 kg, 165.10 cm) jl7 ED Course: 09:50 Patient arrived in ED. mr 09:51 Ariana Plummer is Private Physician. mr 10:08 Alejandro Hannon PA is [facility]. [facility] 10:08 Alfredo Garcia MD is Attending Physician. [facility] 11:12 Triage completed. jl7 11:12 Arm band placed on right wrist. jl7 12:19 Irlanda Pineda, RN is Primary Nurse. hb 12:25 Inserted saline lock: 22 gauge in left antecubital area, using aseptic technique. Blood hb collected. 13:32 CT Abd/Pelvis - IV Contrast Only In Process Unspecified. EDMS 13:34 Patient has correct armband on for positive identification. hb 14:50 No provider procedures requiring assistance completed. IV discontinued, intact, hb bleeding controlled, No redness/swelling at site. Administered Medications: 12:32 Drug: NS 0.9% 1000 ml Route: IV; Rate: 1 bolus; Site: left antecubital; hb 13:45 Follow up: Response: No adverse reaction; IV Status: Completed infusion; IV Intake: hb 1000ml Medication: 13:35 VIS not applicable for this client. hb Intake: 13:45 IV: 1000ml; Total: 1000ml. hb Outcome: 14:35 Discharge ordered by . gill 14:50 Discharged to home ambulatory. hb 14:50 Condition: stable 14:50 Discharge instructions given to patient, Instructed on discharge instructions, follow up and referral plans. medication usage, Demonstrated understanding of instructions, follow-up care, medications. 14:50 Patient left the ED. hb Signatures: Dispatcher [employer] EDMS Alejandro Hannon PA PA jmm Daniela Alvarado mr Irlanda Pineda, RN RN Jesus Iqbal RN RN jl7 Corrections: (The following items were deleted from the chart) 11:13 11:12 Allergies: NKA; jl7 jl7
[2022-02-18 15:07] VITALS: TEMP 99; O2SAT 99
[2022-02-18 15:13] VITALS: BP 138/82
== END 2022-02-18 14:50 | disposition home or self-care (01) ==
LOC: ER 09:46
DX: R19.5 Other fecal abnormalities (principal); I10 Essential (primary) hypertension; Z20.822 Contact with and (suspected) exposure to COVID-19; Z88.1 Allergy status to other antibiotic agents
CPT/HCPCS: 85025; 36415; 83690; 80053; 0240U; 74177; 96360; 99284; Q9967; J7030

== ENCOUNTER 2022-05-01 08:59 | Inpatient (IN) | payer OTHER ==
--- OUTSIDE RECORDS SUMMARY | 2022-05-01 09:02 | XMS REPORT | Continuity of Care Document ---
:1955 Author Organization [facility] t Address [address] [place] [address] Care Team Providers Name Role Phone Palmira Goode Attending Clinician Unavailable KATERINA MIRZA Attending Clinician Unavailable LAB90 Attending Clinician Unavailable COVID-PFIZER VACC, [place] Attending Clinician UnavailELIANE Christian Attending Clinician Unavailable DR ALEXANDRA PENALOZA Attending Clinician Unavailable Palmira Godoe Admitting Clinician Unavailable ELIANE HEMPHILL Admitting Clinician Unavailable DR ALEXANDRA PENALOZA Admitting Clinician Unavailable Payers Payer Name Policy Type Policy Number Effective Date Expiration Date Neville [place] 5 [id number] 2021 00:00:00 Problems Condition Condition Condition Status [...] -Sulfame adverse 00:00: - thoxazol reaction 00 [employer] a e-Trimet s l hoprim Tylenol Propensi Active 2021-03 PATIENT Aminata ty to 0-10 STATES Seybold adverse 00:00: SHE FELT - reaction 00 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 AND WENT l TO THE ER Acetamin Propensi Active Aminata jacksonen ty to 7 [place]bold Injectio adverse 00:00: - n reaction 00 Externa s l sulfamet DA Active [facility] hoxazole 7- [place] 00:00: d 00 [facility] trimetho DA Active [facility] prim 7-29 [place] 00:00: d 00 [facility] trimetho DA Active SV hives [facility] prim breakout 7-29 [place] itchiness 00:00: d 00 [facility] sulfamet DA Active SV hives 0 [facility] hoxazole breakout 10-01 [place] itchiness 00:00: d 00 [facility] Sulfamet Propensi Active Aminata hoxazole ty [...] History BAILEY andrade - Alcohol Std Drinks [employer] Manager al History BAILEY andrade - Alcohol Binge [...] Aminata wilson PFIZER 12+ ([place] 00:00:00 - 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 Encounters Start End Encounter Admission Attending Care Care Encounter Source Date/Time Date/Time Type Type Clinicians Facility Department ID 2019-10-02 [id number] 14:00:00 Elier Saundra [facility] 2022-02-18 2022-02-18 Outpatient AMINATA MIRZA [id number] Aminata 00:00:00 00:00:00 KATERINA Seybol d 2022-01-11 2022-01-11 Outpatient AMINATA MIRZA [id number] Aminata 00:00:00 00:00:00 KATERINA Seybol d 2022-01-11 2022-01-11 Outpatient AMINATA MIRZA [id number] Aminata 00:00:00 00:00:00 KATERINA Seybol d 2021-12-20 2021-12-20 Outpatient AMINATA MIRZA [id number] Aminata 00:00:00 00:00:00 KATERINA Seybol d 2021-12-15 2021-12-15 Outpatient AMINATA MIRZA [id number] Aminata 00:00:00 00:00:00 KATERINA Seybol d 2021-12-13 2021-12-13 Outpatient LAB90 AMINATA KIRK [id number] Aminata 12:05:00 12:05:00 Seybol d 2021-12-13 2021-12-13 Outpatient COVID-PFIZE AMINATA KIRK [id number] Aminata 11:20:00 11:20:00 R Zari KELLEY 2021-12-13 2021-12-13 Outpatient AMINATA MIRZA [id number] Aminata 10:45:00 10:45:00 KATERINA Seybol d 2020-11-19 2020-11-19 Outpatient RAYMOND HEMPHILL [facility] W[facility] LA00 [id number] [facility] 12:00:00 12:00:00 ELIANE Deana Caralolly n [facility] 2019-09-28 2019-09-28 Outpatient NOEMI Goode SURG [id number] [facility] 08:00:00 08:00:[address] [facility] 2016-07-07 2016-07-07 Outpatient Crispin PENALOZA [facility] [id number] [place] 04:47:00 08:30:00 [facility] Results Test Description Test Time [...] = MDIFF) AUTO DIFFERENTI AL. COMPREHENSIVE METABOLIC [id number] 12:54:00 Test Item Value Reference Range Interpretation [...] LDL/HDL) 2.25 Ratio 1.48-3.22 Avg N PROTHROMBIN [id number] 12:33:00 Test Item Value Reference Range Interpretation Comments PT PATIENT (test code = PTP) 12.0 SECONDS 9.3-12.9 N INTERNATIONAL NORMAL RATIO 1.06 INR Unit 0.8-1.2 N (test code = INR) THROMBOPLASTIN TIME [id number] 12:33:00 Test Item Value Reference Range Interpretation Comments THROMBOPLASTIN TIME PARTIAL 30.4 SECONDS 26-35 N (test code = PTT) COVID 19 Asymptomatic IH [id number] 11:27:00 Test Item Value Reference Range Interpretation [...]
[2022-05-01] MEDS ORDERED: ONDANSETRON 4 MG/2 ML VIAL ONE (09:46)
[2022-05-01] MEDS ORDERED: PANTOPRAZOLE 40 MG INJ ONE (09:46)
[2022-05-01] MEDS ORDERED: NA CHLORIDE 0.9% 500 ML ONE (09:46)
[2022-05-01 09:55] LABS: Absolute Lymphocytes (CBC) 0.3 K/uL (0.7-4.9); Lymphocytes % 3.1 % (15.3-44.8); MCV 86.5 fL (80-100); MPV 7.2 fL (7.6-11.3); RBC Red Blood Cell Count 4.62 M/uL (3.86-4.86)
[2022-05-01 09:59] LABS: Protime INR 1.02
[2022-05-01 10:10] LABS: Albumin 3.4 g/dL (3.4-5.0); Bilirubin Total 0.5 mg/dL (0.2-1.0); Protein, Total 7.3 g/dL (6.4-8.2); Troponin High Sensitivity 5.6 pg/mL (<58.9)
--- NOTE | 2022-05-01 10:16 | RAD REPORT ---
EXAM DESCRIPTION: [place] Single View05/01/2022 9:53 am CLINICAL HISTORY: low oxygen COMPARISON: Chest Single View dated 02/25/2018; Chest Single View dated 05/07/2017; Chest Pa And Lat ( 2 Views) dated 05/03/2017; Chest Pa And Lat (2 Views) dated 09/09/2015; IMP 3D SCR GUSTABO BILAT W/CAD dated 06/28/2018 TECHNIQUE: Portable AP view of the chest. FINDINGS: Decreased inspiratory effort limits evaluation. The lungs are clear. Mild bibasilar atelec tasis. No pneumothorax or effusion. The cardiomediastinal contours are unremarkable. IMPRESSION: Mild bibasilar atelectasis without evidence of focal airspace opacity.
[2022-05-01 10:26] LABS: SARS-COV-2 RT PCR NEGATIVE (NEGATIVE)
--- NOTE | 2022-05-01 11:04 | RAD REPORT ---
EXAM DESCRIPTION: CT - Abdomen Pelvis W Contrast - 05/01/2022 10:25 am CLINICAL HISTORY: Abdominal pain, vomiting and diarrhea. COMPARISON: None. TECHNIQUE: Biphasic, helical CT imaging of the abdomen and pelvis was performed following oral and 1 00 ml non-ionic IV contrast. All CT scans are performed using dose optimization technique as appropriate and may include automated exposure control or mA/KV adjustment according to patient size. FINDINGS: No suspicious findings in the lung bases. The liver, spleen, and pancreas show no suspicious findings. Gallbladder 1.5 cm calculus. No intra or extrahepatic biliary ductal dilation. Symmetric renal function is seen with no hydronephrosis or suspicious renal mass. Small hiatal hernia. Sequelae of bariatric surgery. Mildly dilated jejunal loops in the left upper qu adrant. No bowel wall thickening. No free air, free fluid or inflammatory stranding. No hernia, mass or bulky lymphadenopathy. The urinary bladder is without significant finding. No suspicious bony findings. IMPRESSION: Mildly dilated jejunal loops in the left upper quadrant, nonspecific but could reflect m ild ileus. Single gallstone. No other acute findings in the abdomen/pelvis.
[2022-05-01] MEDS ORDERED: MAGNESIUM SULFATE 1 gm IVPB 1 GM/100 ML BAG IV ONE (11:07)
--- NOTE | 2022-05-01 11:44 | EDPHYS ---
Physician Documentation [facility] Name: Maryellen Reed Age: 66 yrs Sex: Female : 1955 Arrival Date: 05/01/2022 Time: 09:01 Bed 8 Private MD: ED Physician Rene Pollard HPI: 05/01 09:30 This 66 yrs old Female presents to ER via Ambulatory with complaints of rn Vomiting/Diarrhea, Back Pain. 09:30 The patient presents to the emergency department with nausea, vomiting, diarrhea, rn abdominal pain. Onset: The symptoms/episode began/occurred this morning. Possible causes: unknown. The symptoms are aggravated by nothing. The symptoms are alleviated by nothing. Associated signs and symptoms: Pertinent positives: abdominal pain, diarrhea, vomiting. 09:31 Severity of symptoms: At their worst the symptoms were moderate in the emergency rn department the symptoms are unchanged. The patient has not experienced similar symptoms in the past. The patient has not recently seen a physician. 09:31 Pt reports nausea/vomiting/diarrhea, threw up possibly blood first episode but not rn subsequently. Also reports dark stool. Not on blood thinners. No trauma. Also reports low back pain for weeks.. Historical: - Allergies: 09:21 Bactrim; jl7 - Home Meds: 15:23 levothyroxine 75 mcg tab 1 tab once daily [Active]; metoprolol succinate 25 mg oral ph Tb24 1 tab once daily [Active]; torsemide 100 mg oral tab 0.5 tab once daily [Active]; simvastatin 20 mg Oral tab 1 tab once daily [Active]; - PMHx: 09:21 CHF; Heart Murmur; Hyperlipidemia; Hypertensive disorder; Hypothyroidism; jl7 - PSHx: 09:21 Total abdominal hysterectomy; gastric sleeve; jl7 - Immunization history:: Client reports receiving the 2nd dose of the Covid vaccine. - Social history:: Smoking status: Patient denies any tobacco usage or history of. - Family history:: not pertinent. - Hospitalizations: : No recent hospitalization is reported. ROS: 09:31 Constitutional: + chills Eyes: Negative for injury, pain, redness, and discharge, Neck: rn Negative for injury, pain, and swelling, Cardiovascular: Negative for chest pain, palpitations, and edema, Respiratory: Negative for cough, wheezing, and pleuritic chest pain, + sob Abdomen/GI: + abd pain/nausea/vomiting/diarrhea, + black stool Back: Negative for injury and pain, MS/Extremity: Negative for injury and deformity, Skin: Negative for injury, rash, and discoloration, Neuro: Negative for headache, numbness, tingling, and seizure. Exam: 09:31 Constitutional: This is a well developed, well nourished patient who is awake, alert, rn and in no acute distress. Head/Face: Normocephalic, atraumatic. ENT: dry MM Cardiovascular: Tachycardic, regular. Respiratory: Mild tachypnea, no retractions Abdomen/GI: soft, mild mid abd tenderness, no rebound or peritoneal signs Skin: Warm, dry MS/ Extremity: Pulses equal, no cyanosis. Neuro: Awake and alert, GCS 15 09:39 ECG was reviewed by the Attending Physician. rn Vital Signs: 09:19 BP 140 / 73; Pulse 109; Resp 16; Temp 99.6; Pulse Ox 88% ; Pain 8/10; jl7 09:59 BP 133 / 70; Pulse 101; Resp 18; Pulse Ox 92% on R/A; ph 10:58 BP 112 / 84; Pulse 147; ph 11:08 BP 130 / 84; Pulse 108; Resp 20; Pulse Ox 94% on R/A; ph 12:00 BP 123 / 67; Pulse 91; Resp 18; Pulse Ox 94% on R/A; ph 13:00 BP 129 / 69; Pulse 97; Resp 16; Pulse Ox 91% on R/A; ph 14:00 BP 131 / 73; Pulse 104; Resp 16; Pulse Ox 96% on R/A; ph 14:13 BP 106 / 55; Pulse 144; Resp 16; Pulse Ox 95% on R/A; ph 15:00 BP 114 / 66; Pulse 95; Resp 16; Pulse Ox 92% on R/A; ph 15:28 BP 114 / 66; Pulse 96; Resp 18; Temp 98.7(TE); Pulse Ox 93% ; ph MDM: 09:04 Patient medically screened. rn 11:41 Differential diagnosis: Nonspecific abd pain, gastritis, pancreatitis, diverticulitis, rn viral gastroenteritis, gastroenteritis. Data reviewed: vital signs, nurses notes, lab test result(s), radiologic studies, CT scan. Consideration of Admission/Observation Patient was admitted/placed on observation. Escalation of care including admission/observation considered. Management of patient was discussed with the following: Hospitalist: Management and case discussed with Dr. Loving, requests addition of lactate for ischemic bowel.. I considered the following discharge prescriptions or medication management in the emergency department Medications were administered in the Emergency Department. See MAR. Independent interpretation of the following test(s) in the Emergency Department EKG: See my EKG interpretation above CT Scan: My interpretation is CT abdomen negative for free air or obstruction per my interpretation. Counseling: I had a detailed discussion with the patient and/or guardian regarding: the historical points, exam findings, and any diagnostic results supporting the discharge/admit diagnosis, lab results, radiology results, the need for further work-up and treatment in the hospital. Response to treatment: the patient's symptoms have mildly improved after treatment, and as a result, I will admit patient. 05/01 09:19 Order name: CBC with Diff; Complete Time: 10:35 05/01 09:19 Order name: CMP; Complete Time: 10:35 05/01 09:19 Order name: Lipase; Complete Time: 10:35 05/01 09:19 Order name: Protime (+inr); Complete Time: 10:35 05/01 09:19 Order name: Ptt, Activated; Complete Time: 10:35 05/01 09:19 Order name: BNP; Complete Time: 10:35 05/01 09:19 Order name: Troponin High Sensitivity; Complete Time: 10:35 05/01 09:19 Order name: COVID-19/FLU A+B; Complete Time: 10:35 05/01 11:39 Order name: Lactate w/ 2H reflex if indic. rn 05/01 12:48 Order name: Lactate w/ 2H reflex if indic. [facility] 05/01 15:18 Order name: Hemoglobin [facility] 05/01 15:18 Order name: Hematocrit [facility] 05/01 15:27 Order name: Troponin High Sensitivity [facility] 05/01 15:29 Order name: Phosphorus [facility] 05/01 09:19 Order name: CT Abd/Pelvis - IV Contrast Only 05/01 09:19 Order name: IV Saline Lock; Complete Time: 09:40 05/01 09:19 Order name: Labs collected and sent; Complete Time: 09:40 05/01 09:19 Order name: XRAY Chest (1 view); Complete Time: 10:35 rn 05/01 09:19 Order name: EKG; Complete Time: 09:20 rn 05/01 09:19 Order name: EKG - Nurse/Tech; Complete Time: 09:40 rn 05/01 10:57 Order name: EKG; Complete Time: 10:58 rn 05/01 10:57 Order name: EKG - Nurse/Tech; Complete Time: 11:06 rn 05/01 11:04 Order name: CT; Complete Time: 11:28 EDMS 05/01 15:29 Order name: Magnesium EDMS 05/01 15:35 Order name: Glucose, Ancillary Testing EDMS 05/01 15:43 Order name: Type and Screen EDMS EC:39 Rate is 101 beats/min. Rhythm is regular. Left axis deviation noted. QRS is positive in rn lead I and negative in lead aVF. AK interval is normal. QRS interval is prolonged at 148 msec. QT interval is normal. No Q waves. T waves are Normal. No ST changes noted. Clinical impression: Sinus tachycardia. Interpreted by me. Reviewed by me. Administered Medications: 09:50 Drug: Zofran (Ondansetron) 4 mg Route: IVP; Site: left forearm; ph 11:09 Follow up: Response: No adverse reaction ph 09:50 Drug: NS 0.9% 500 ml Route: IV; Rate: bolus; Site: left antecubital; ph 11:09 Follow up: Response: No adverse reaction; IV Status: Completed infusion; IV Intake: ph 500ml 09:50 Drug: ProTONIX (pantoprazole) 40 mg Route: IVP; Site: left forearm; ph 11:09 Follow up: Response: No adverse reaction ph 11:06 Drug: Magnesium Sulfate 1 grams Route: IVPB; Infused Over: 1 hrs; Site: left forearm; ph 12:05 Follow up: Response: No adverse reaction; IV Status: Completed infusion ph Disposition Summary: 05/01/22 11:43 Hospitalization Ordered Hospitalization Status: Observation rn Provider: Po Loving rn Location: Telemetry/MedSur (observation) rn Condition: Stable rn Problem: new rn Symptoms: have improved rn Bed/Room Type: Standard rn Room Assignment: 218(05/01/22 13:52) dw Diagnosis - Nausea with vomiting, unspecified rn - Diarrhea, unspecified rn - Ileus, unspecified rn Forms: - Medication Reconciliation Form rn - SBAR form rn Signatures: Dispatcher [employer] Ashlee Renee, RN RN Rene Owen MD MD rn Hall, Patricia, RN RN ph Leal, Jahala, RN RN jl7 Corrections: (The following items were deleted from the chart) 13:52 11:43 rn laura
--- NOTE | 2022-05-01 11:44 | ER ---
Nurse's Notes [facility] Name: Maryellen Reed Age: 66 yrs Sex: Female : 1955 Arrival Date: 05/01/2022 Time: 09:01 Bed 8 Private MD: Diagnosis: Nausea with vomiting, unspecified;Diarrhea, unspecified;Ileus, unspecified Presentation: 05/01 09:19 Chief complaint: Patient states: N/V/Chills since this morning, low back pain x weeks. jl Coronavirus screen: Vaccine status: Patient reports receiving the 2nd dose of the covid vaccine. Client presents with at least one sign or symptom that may indicate coronavirus-19. Ebola Screen: No symptoms or risks identified at this time. Initial Sepsis Screen: Does the patient meet any 2 criteria? No. Patient's initial sepsis screen is negative. Does the patient have a suspected source of infection? No. Patient's initial sepsis screen is negative. Risk Assessment: Do you want to hurt yourself or someone else? Patient reports no desire to harm self or others. Onset of symptoms is unknown. 09:19 Method Of Arrival: Ambulatory [facility] 09:19 Acuity: BERYL 3 jl7 Triage Assessment: 09:21 General: Appears in no apparent distress. uncomfortable, ill, Behavior is calm, jl7 cooperative, appropriate for age. Pain: Complains of pain in Body aches and low back pain. GI: Reports diarrhea, nausea, vomiting. Historical: - Allergies: 09:21 Bactrim; jl7 - Home Meds: 15:23 levothyroxine 75 mcg tab 1 tab once daily [Active]; metoprolol succinate 25 mg oral ph Tb24 1 tab once daily [Active]; torsemide 100 mg oral tab 0.5 tab once daily [Active]; simvastatin 20 mg Oral tab 1 tab once daily [Active]; - PMHx: 09:21 CHF; Heart Murmur; Hyperlipidemia; Hypertensive disorder; Hypothyroidism; jl7 - PSHx: 09:21 Total abdominal hysterectomy; gastric sleeve; jl7 - Immunization history:: Client reports receiving the 2nd dose of the Covid vaccine. - Social history:: Smoking status: Patient denies any tobacco usage or history of. - Family history:: not pertinent. - Hospitalizations: : No recent hospitalization is reported. Screenin:[facility] ED Fall Risk Assessment (Adult) History of falling in the last 3 months, ph including since admission No falls in past 3 months (0 pts) Confusion or Disorientation No (0 pts) Intoxicated or Sedated No (0 pts) Impaired Gait No (0 pts) Mobility Assist Device Used No (0 pt) Altered Elimination No (0 pt) Score/Fall Risk Level 0 - 2 = Low Risk Oriented to surroundings, Maintained a safe environment, Hourly rounding (assess needs \T\ fall precautionary measures) done. Abuse screen: Denies threats or abuse. Denies injuries from another. Nutritional screening: No deficits noted. Tuberculosis screening: No symptoms or risk factors identified. Assessment: 09:52 General: Appears in no apparent distress. comfortable, well groomed, Behavior is calm, ph cooperative, appropriate for age. Pain: Complains of pain in low back area. Neuro: Level of Consciousness is awake, alert, obeys commands, Oriented to person, place, time, situation. Cardiovascular: Capillary refill < 3 seconds in bilateral fingers Patient's skin is warm and dry. Respiratory: Airway is patent Respiratory effort is even, unlabored, Respiratory pattern is regular, symmetrical. GI: Abdomen is non-distended, Reports diarrhea, nausea, vomiting. : No signs and/or symptoms were reported regarding the genitourinary system. Derm: Skin is healthy with good turgor, Skin is pink, warm \T\ dry. Musculoskeletal: Circulation, motion, and sensation intact. Range of motion: intact in all extremities. 11:00 Reassessment: Patient appears in no apparent distress at this time. Patient and/or ph family updated on plan of care and expected duration. Pain level reassessed. Patient is alert, oriented x 3, equal unlabored respirations, skin warm/dry/pink. Pt's HR noted to have increased to 145-155, rhythm appears regular, pt denies palpitations but reports SOB, Dr Pollard notified and repeat EKG obtained, see MAR for med orders. 11:07 Reassessment: At bedside to hang magnesium per order, HR decreased to 101-105, sinus ph tach, pt c/o headache. 11:32 Reassessment: Dr. Pollard at bedside discussing results and POC. jl7 12:40 Reassessment: Hospitalist Dr. Loving at bedside assessing pt. jl7 Vital Signs: 09:19 BP 140 / 73; Pulse 109; Resp 16; Temp 99.6; Pulse Ox 88% ; Pain 8/10; jl7 09:59 BP 133 / 70; Pulse 101; Resp 18; Pulse Ox 92% on R/A; ph 10:58 BP 112 / 84; Pulse 147; ph 11:08 BP 130 / 84; Pulse 108; Resp 20; Pulse Ox 94% on R/A; ph 12:00 BP 123 / 67; Pulse 91; Resp 18; Pulse Ox 94% on R/A; ph 13:00 BP 129 / 69; Pulse 97; Resp 16; Pulse Ox 91% on R/A; ph 14:00 BP 131 / 73; Pulse 104; Resp 16; Pulse Ox 96% on R/A; ph 14:13 BP 106 / 55; Pulse 144; Resp 16; Pulse Ox 95% on R/A; ph 15:00 BP 114 / 66; Pulse 95; Resp 16; Pulse Ox 92% on R/A; ph 15:28 BP 114 / 66; Pulse 96; Resp 18; Temp 98.7(TE); Pulse Ox 93% ; ph ED Course: 09:01 Patient arrived in ED. mr 09:03 Rene Pollard MD is Attending Physician. rn 09:19 Jesus De La Rosa RN is Primary Nurse. jl7 09:21 Triage completed. jl7 09:21 Arm band placed on right wrist. jl7 09:45 Missed attempt(s): 22 gauge in right forearm. Bleeding controlled, band aid applied, ph catheter tip intact. 09:51 Patient has correct armband on for positive identification. Bed in low position. Call ph light in reach. Side rails up X 1. Pulse ox on. NIBP on. Door closed. Noise minimized. Warm blanket given. 09:55 XRAY Chest (1 view) In Process Unspecified. EDMS 09:55 Initial lab(s) drawn, by me, sent to lab. Inserted saline lock: 22 gauge in left ph forearm, using aseptic technique. Blood collected. 11:43 Po Loving is Hospitalizing Provider. rn 15:35 Inserted saline lock: 22 gauge in right hand, using aseptic technique. ph 15:49 No provider procedures requiring assistance completed. Patient admitted, IV remains in ph place. Administered Medications: 09:50 Drug: Zofran (Ondansetron) 4 mg Route: IVP; Site: left forearm; ph 11:09 Follow up: Response: No adverse reaction ph 09:50 Drug: NS 0.9% 500 ml Route: IV; Rate: bolus; Site: left antecubital; ph 11:09 Follow up: Response: No adverse reaction; IV Status: Completed infusion; IV Intake: ph 500ml 09:50 Drug: ProTONIX (pantoprazole) 40 mg Route: IVP; Site: left forearm; ph 11:09 Follow up: Response: No adverse reaction ph 11:06 Drug: Magnesium Sulfate 1 grams Route: IVPB; Infused Over: 1 hrs; Site: left forearm; ph 12:05 Follow up: Response: No adverse reaction; IV Status: Completed infusion ph Medication: 09:51 VIS not applicable for this client. ph Intake: 11:09 IV: 500ml; Total: 500ml. ph Outcome: 11:43 Decision to Hospitalize by Provider. rn 15:49 Admitted to Tele accompanied by tech, via stretcher, room 218, with chart, Report ph called to Kaur RN 15:49 Condition: stable 15:49 Instructed on the need for admit. 15:52 Patient left the ED. ph Signatures: Dispatcher [employer] Daniela Marroquin Roman, MD MD rn Hall, Patricia, RN RN ph Leal, Jahala, RN RN jl7
--- NOTE | 2022-05-01 13:58 | P.HP ---
Certification for Inpatient Patient admitted to: Inpatient With expected LOS: >2 Midnights Practitioner: I am a practitioner with admitting privileges, knowledge of patient current condition, hospital course, and medical plan of care. Services: Services provided to patient in accordance with Admission requirements found in Title 42 Section 412.3 of the Code of Federal Regulations Patient History Date of Service: 05/01/22 Reason for admission: Diarrhea History of Present Illness: 66-year-old woman with a history of gastric sleeve, colonic polyps and hypertension presented to the emergency department due to nausea and vomiting and diarrhea of sudden onset today. Patient describes dark colored bowel movements, almost black. She also reported multiple vomiting episodes today, attributed to vomiting episodes were bloodstained. She denied any abdominal pain. In the ED patient noted to have SVT with wide-complex tachycardia, LBBB heart rate up to 148 on her EKG. Her heart rate improved after a dose of IV magnesium. Initial troponin is negative. Repeat EKG demonstrated sinus tachycardia up to 101. Patient reports shortness of breath during the episode. No chest pain. She denied any pain during my examination in the ED. lactic acid is within normal limits. She has no leukocytosis, no fever and does not meet criteria for sepsis. Abdominal CT demonstrated ileus. Case discussed with GI Dr. Howell and cardiology Dr. Lazar. Patient is hospitalized for further management. Allergies nitrofurantoin Allergy (Verified 02/25/18 15:54) Itching/Hives/Rash sulfamethizole Allergy (Verified 02/25/18 15:54) Itching/Hives/Rash Home Medications: Levothyroxine Sodium 1 tab PO DAILY 02/25/18 Metoprolol Succinate [Toprol Xl*] 25 mg PO DAILY 02/25/18 hydroCHLOROthiazide [Hydrochlorothiazide] 1 tab PO DAILY 02/25/18 - Past Medical/Surgical History Diabetic: No -: HTN -: Hypothyrodism -: "minute hole in her heart" with mumur per Dr Goode- not surg option -: colon polyps Dr Howell -: gastric sleeve 2011 -: tummy tuck -: breast augmentation -: excess skin removal to limbs -: hysterectomy - Family History Mother -: Stroke Father -: Cancer Notes: colon - Social History Smoking Status: Never smoker Alcohol use: No CD- Drugs: No Caffeine use: Yes Review of Systems Other: Except as documented, all other systems reviewed and negative. Physical Examination - Physical Exam General: Alert, In no apparent distress, Oriented x3 HEENT: Atraumatic, PERRLA, Mucous membr. moist/pink, Sclerae nonicteric Neck: Supple, JVD not distended Respiratory: Clear to auscultation bilaterally, Normal air movement Cardiovascular: No edema, Regular rate/rhythm, Normal S1 S2 Gastrointestinal: Normal bowel sounds, Soft and benign, Non-distended, No tenderness Musculoskeletal: No swelling, No tenderness Integumentary: No rashes, No erythema, No cyanosis Neurological: Normal speech, Normal strength at 5/5 x4 extr, Cranial nerves 3-12 intact Lymphatics: No axilla or inguinal lymphadenopathy - Studies Laboratory Data (last 24 hrs) 05/01/22 09:35: PT 11.2, INR 1.02, APTT 23.8 L 05/01/22 09:35: Sodium 137, Potassium 4.0, BUN 20 H, Creatinine 0.87, Glucose 130 H, Total Bilirubin 0.5, AST 21, ALT 23, Alkaline Phosphatase 65, Lipase 17 05/01/22 09:35: WBC 8.50, Hgb 13.1, Hct 40.0, Plt Count 279 Assessment and Plan - Problems (Diagnosis) (1) GI bleeding Current Visit: Yes Status: Acute (2) Regular wide QRS complex tachycardia Current Visit: Yes Status: Acute (3) Left bundle branch block Current Visit: Yes Status: Acute (4) H/O gastric sleeve Current Visit: Yes Status: Acute - Plan Admit patient to the medical floor. Trend troponin Start metoprolol 25 mg twice daily for wide-complex tachycardia. Obtain echocardiogram Cardiology consult. Patient with a prior history of gastric sleeve surgery presenting with GI bleed Start Protonix drip and octreotide. Monitor H&H and transfuse as needed. Type and crossmatch blood Empiric IV Rocephin and Flagyl Hydrate with IV normal saline. Normal saline bolus as needed for possible dehydration leading to tachycardia. Monitor electrolytes and keep potassium level resume level greater than 4. - Advance Directives Does patient have a Living Will: No Does patient have a Durable POA for Healthcare: No
[2022-05-01] MEDS ORDERED: METOPROLOL TARTRATE 5 MG/5 ML INJ IV STA (14:15)
[2022-05-01] MEDS ORDERED: NA CHLORIDE 0.9% 250 ML IV SCH (14:23)
[2022-05-01] MEDS ORDERED: MORPHINE 2 MG/ML SYR IV PRN (14:23)
[2022-05-01] MEDS: D5 0.9 NS 1,000 ML IV SCH ×2 (14:23→22:23)
[2022-05-01] MEDS ORDERED: NA CHLORIDE 0.9% 250 ML ONE (14:26)
[2022-05-01] MEDS ORDERED: METOPROLOL TARTRATE 5 MG/5 ML INJ IV ONE (14:26)
[2022-05-01 15:09] LABS: Hematocrit 38.3 % (36.0-45.0)
[2022-05-01 15:29] LABS: Magnesium 2.2 mg/dL (1.6-2.4); Phosphorus 2.2 mg/dL (2.5-4.9)
[2022-05-01] MEDS: OCTREOTIDE 500 MCG in NA CHLORIDE 0.9% 500 ML IV SCH (17:01)
[2022-05-01] MEDS: PANTOPRAZOLE INJ 80 MG in NA CHLORIDE 0.9% 250 ML IV SCH (17:02)
[2022-05-01] MEDS: CEFTRIAXONE 1,000 MG in NA CHLORIDE 0.9% 50 ML IVPB SCH (17:03)
[2022-05-01] MEDS: NA CHLORIDE 0.9% 1,000 ML IV ONE ×2 (17:04→17:05)
[2022-05-01] MEDS: METRONIDAZOLE 500mg IVPB 500 MG/100 ML BAG IV SCH (17:04)
[2022-05-01] MEDS: METOPROLOL TAR 25 MG TAB PO SCH (18:08)
[2022-05-01 18:41] VITALS: BMI 43.4
[2022-05-01] MEDS ORDERED: IPRATROPIUM BROM 0.5MG/2.5ML NEB PRN (20:02)
[2022-05-01] MEDS ORDERED: ALBUTEROL 2.5 MG/3 ML NEB SOL NEB PRN (20:05)
[2022-05-02] MEDS: METRONIDAZOLE 500mg IVPB 500 MG/100 ML BAG IV SCH ×3 (00:22→18:07)
[2022-05-02] MEDS ORDERED: FENTANYL CITR 100 MCG/2 ML IV ONE (02:09)
[2022-05-02] MEDS: PANTOPRAZOLE INJ 80 MG in NA CHLORIDE 0.9% 250 ML IV SCH ×3 (02:14→21:00)
[2022-05-02 03:45] LABS: Absolute Lymphocytes (CBC) 0.7 K/uL (0.7-4.9); Hematocrit 33.8 % (36.0-45.0); Lymphocytes % 14.2 % (15.3-44.8); MCV 87.3 fL (80-100); MPV 7.3 fL (7.6-11.3); RBC Red Blood Cell Count 3.87 M/uL (3.86-4.86)
[2022-05-02 04:12] LABS: Potassium 3.6 mmol/L (3.5-5.1); Thyroid Stimulating Hormone 1.48 uIU/mL (0.358-3.740)
[2022-05-02] MEDS: OCTREOTIDE 500 MCG in NA CHLORIDE 0.9% 500 ML IV SCH ×3 (05:40→21:00)
[2022-05-02] MEDS: METOPROLOL TAR 25 MG TAB PO SCH ×2 (06:00→18:07)
[2022-05-02] MEDS: D5 0.9 NS 1,000 ML IV SCH ×2 (06:22→14:23)
[2022-05-02] MEDS: CEFTRIAXONE 1,000 MG in NA CHLORIDE 0.9% 50 ML IVPB SCH (08:23)
[2022-05-02] MEDS ORDERED: Ringers Lactate 1,000 ML IV ONE (13:25)
[2022-05-02] MEDS ORDERED: propofoL 200 MG/20 ML VIAL IV ONE (14:49)
--- NOTE | 2022-05-02 15:06 | P.PN ---
Subjective Date of Service: 05/02/22 Chief Complaint: Diarrhea Patient reports shortness of breath of onset last night. She was placed on 2 L oxygen by nasal cannula. Nursing staff report patient experienced episodes of tachycardia today. No vomiting since admission, no hematemesis and no episode of melena. Patient denies any abdominal pain. Physical Examination - Vital Signs Temperature: 98.9 F Blood Pressure: 101/53 Pulse: 75 Respirations: 16 Pulse Ox (%): 94 Assessment And Plan - Current Problems (Diagnosis) (1) GI bleeding Current Visit: Yes Status: Acute (2) Regular wide QRS complex tachycardia Current Visit: Yes Status: Acute (3) Left bundle branch block Current Visit: Yes Status: Acute (4) H/O gastric sleeve Current Visit: Yes Status: Acute - Plan Physical Exam General: Alert, In no apparent distress, Oriented x3 HEENT: Mucous membr. moist/pink, Sclerae nonicteric Neck: Supple, JVD not distended Respiratory: Bilateral diminished breath sounds Cardiovascular: No edema, Regular rate/rhythm, Normal S1 S2 Gastrointestinal: Normal bowel sounds, Soft and benign, Non-distended, No tenderness Musculoskeletal: No swelling, No tenderness Integumentary: No rashes, No erythema, No cyanosis Neurological: Normal speech, Normal strength at 5/5 x4 extr, Cranial nerves 3-12 intact Lymphatics: No axilla or inguinal lymphadenopathy Plan: Trend troponin trended negative Continue metoprolol 25 mg twice daily for wide-complex tachycardia. Echocardiogram done and the result is pending Cardiology consult is pending. TSH within normal limit. Patient with a prior history of gastric sleeve surgery presenting with GI bleed Continue Protonix drip and octreotide. Noted patient hemoglobin dropped from 13 to 11. Monitor H&H and transfuse as needed. Empiric IV Rocephin and Flagyl Discontinue IV fluid given shortness of breath. Obtain chest x-ray to evaluate for pulmonary edema. Considering IV Lasix for pulmonary edema. Wean off oxygen as tolerated. Monitor electrolytes and keep potassium level resume level greater than 4.
--- NOTE | 2022-05-02 18:38 | EKG ---
Test Date: 2022-05-02 Test Time: 11:31:50 Sap Director: KENYA MEASUREMENT RESULTS: Intervals: Rate: 73 MN: 202 QRSD: 102 QT: 386 QTc: 425 [place]: P: 32 MN: 202 QRS: 81 T: 30 INTERPRETIVE STATEMENTS: Normal sinus rhythm ST & T wave abnormality, consider anterior ischemia Abnormal ECG Compared to ECG 05/01/2022 10:59:33 ST (T wave) deviation now present Possible ischemia now present Wide-QRS tachycardia no longer present Left bundle-branch block no longer present Electronically Signed On 05-02-22 18:36:49 SOD FARMER by Geoffrey Lazar
--- NOTE | 2022-05-02 18:42 | EKG ---
Test Date: 2022-05-01 Test Time: 09:37:49 Tobacco Drying Machine Operator: CHRISSIE MEASUREMENT RESULTS: Intervals: Rate: 101 NH: 200 QRSD: 148 QT: 372 QTc: 482 [place]: P: 24 NH: 200 QRS: -23 T: 117 INTERPRETIVE STATEMENTS: Sinus tachycardia Left bundle branch block Abnormal ECG Compared to ECG 02/25/2018 11:12:11 Left bundle-branch block now present Sinus rhythm no longer present Electronically Signed On 05-02-22 18:40:08 FRUIT PITTER by Geoffrey Lazar
--- NOTE | 2022-05-02 18:42 | EKG ---
Test Date: 2022-05-01 Test Time: 10:59:33 Senior Licensing Manager: LUCIE MEASUREMENT RESULTS: Intervals: Rate: 148 [place]: QRSD: 142 QT: 340 QTc: 533 [place]: P: [place]: QRS: 8 T: 70 INTERPRETIVE STATEMENTS: Sinus tachycardia Left bundle branch block Abnormal ECG Electronically Signed On 05-02-22 18:39:53 TELESALES ADVISOR by Geoffrey Lazar
--- NOTE | 2022-05-02 19:24 | P.PN ---
Date of Service: 05/03/22 Subjective: ROS: A complete review of systems was performed and is negative except as mentioned above Physical Exam: Gen: NAD, AOx3 HEENT: normal conjunctiva, sclera anicteric CV: regular rate & rhythm, no edema Pulm: non-labored respirations, clear bilaterally Abd: soft, non-tender, non-distended MSK: no contractures, no tenderness Skin: no rashes, no lesions Neuro: normal speech, normal affect, moves all extremities vitals reviewed Problem List GI bleed Regular wide QRS complex tachycardia, acute Left bundle branch block h/o gastric sleeve s/p EGD with Dr. Howell continue protonix/octreotide h/o gastric sleeve trend hgb empiric rocephin/flagyl troponin trended negative Continue metoprolol 25 mg twice daily for wide-complex tachycardia. Echocardiogram done and the result is pending Cardiology consulted, awaiting recommendations TSH within normal limit. Discontinue IV fluid given shortness of breath. Obtain chest x-ray to evaluate for pulmonary edema. Considering IV Lasix for pulmonary edema. Wean off oxygen as tolerated. Monitor electrolytes and keep potassium level resume level greater than 4. VTE: lovenox Code: full Dispo:
--- NOTE | 2022-05-02 20:44 | CON ---
Date of Consultation: 05/02/2022 Reason For Consultation: GI bleed, melena with nausea and vomiting. History Of Present Illness: Patient is a 66-year-old white female with history of hypertension, hypo thyroidism, colon polyps, gastric sleeve. Patient presented to the hospital with persistent nausea a nd vomiting with sudden onset of diarrhea. Patient describes stools as being very dark, almost black . She reported multiple vomiting episodes where the emesis seemed to be blood-stained. She denied a ny abdominal pain. She also had SVT with wide-complex tachycardia with left bundle branch block, a h eart rate of 148 in EKG in the emergency room. Underwent a cardiology evaluation. Initial evaluatio n was negative. However, other cardiac testing is planned for tomorrow, but she is thought to be sta ble for GI procedure that she needs it. Past Medical History: Significant for hypertension, hypothyroidism, "a minute hole in heart", colon polyps, gastric sleeve, tummy tuck, breast augmentation, excess skin removal under arms and hysterect matilda. Social History: She is , 2 children. No tobacco. No alcohol. Family History: Father of prostate cancer. Mother of stroke. Physical Examination: Vital Signs: Patient is 5 feet 5 inches, 261 pounds, BMI of 43.4 kg/sq m. Temperature 98.9 degrees Fahrenheit, pulse ox 79, respirations 18, blood pressure 106/50, O2 saturation 95% to 96%. HEENT: Normocephalic, atraumatic. Anicteric. Pupils equal, round, and reactive to light. Extraocu lar movements are intact. Oropharynx clear. Neck: Supple. No masses. Respirations: Clear to auscultation bilaterally. Cardiac: Regular rate and rhythm. Gastrointestinal: Positive bowel sounds. Soft, nontender, nondistended. No hepatosplenomegaly. Mi ldly obese. Extremities: No clubbing or cyanosis. Some, I guess, mild edema possible in the lower extremities. Neuro: Alert and oriented x3. Grossly nonfocal. 5/5 motor. Sensation intact to light touch. Laboratory Data: Patient has a white count of 4.9, hemoglobin 11.1, hematocrit 33.8, MCV of 87, plat elet count 200, polys 79%, lymphocytes 14%, monocytes 6%. PT of 11.2, INR of 1.02, PTT of 23.8. Sod ium 137, potassium 3.6, bicarb 107, BUN of 12, creatinine of 0.92, glucose 207, calcium 7.6, phosphor us 2.2, magnesium 2.2, TSH of 1.48, AST 21, ALT 23, alkaline phosphatase 65. Serologies: Influenza and COVID-19 testing negative. Imaging: CT abdomen and pelvis, mildly dilated jejunal loops of left upper quadrant nonspecifically reflect mild ileus or enteritis and single gallstone. Impression: 1.Gastrointestinal bleed, possible melena with the report of dark stools. 2.Nausea and vomiting associated with new onset diarrhea with CT scan revealing mildly dilated jejun al loops, which is nonspecific, could be due to ileus or enteritis, which is probably would be enteri tis is more likely. 3.New left bundle branch block with tachycardia, SVT. Cardiac initial evaluation has been negative. She is felt to be stable to proceed with GI procedure as needed for the cardiology testing needed. 4.History of hypertension, hypothyroidism, colon polyps, gastric sleeve, tummy tuck, breast augmenta tion, and excess resection of skin under arms and hysterectomy. Recommendations: 1.EGD now. 2.Continue IV fluids. 3.PPI therapy. 4.Cardiology consult, which has been done. WARREN/SANDRA Voice ID: [id number] Report ID: [id number]
--- NOTE | 2022-05-02 21:19 | RAD REPORT ---
[facility] DES[facility] 9:08 pm CLINICAL HISTORY: Pulmonary edema COMPARISON: Chest Single View dated 05/01/2022; Chest Single View dated 02/25/2018; Chest Single View dated 05/07/2017; Chest Pa And Lat (2 Views) dated 05/03/2017 TECHNIQUE: Portable AP view of the chest. FINDINGS: The lungs are clear. No pneumothorax or sizable effusion. Mild cardiomegaly. Prominence of the central pulmonary vascular markings, progressive compared to prior exams. Left basilar atelectas is and/or trace effusion. Mediastinal Contours are unremarkable. IMPRESSION: New mild cardiomegaly, and progressive prominence of the central pulmonary vascular michelle ings, raising concern for vascular congestion/CHF.
[2022-05-02 21:51] VITALS: O2SAT 95
--- NOTE | 2022-05-03 00:05 | CON ---
Date of Consultation: 05/02/2022 Reason For Consultation: Tachycardia, wide-complex. History Of Present Illness: 66-year-old female, history of gastric sleeve, hypertension, hypothyroid ism, presented to the emergency room with diarrhea, nausea and vomiting. She had a tachycardia on ar rival, wide-complex, but after IV fluid management, there was the left bundle branch block. Patient does not have any chest pain or shortness of breath. Past Medical History: As outlined above in the HPI. Medications: Refer to reconciliation sheet for detailed list. Allergies: NITROFURANTOIN AND SULFA. Family History: No premature coronary artery disease or cancer. Social History: She does not smoke or drink. Does not use any drugs. Review of Systems: All systems reviewed and they were negative except what mentioned in HPI. Physical Examination: Vital Signs: Reviewed. Head and Neck: Pupils are equal, reactive to light. Intact eye movements. No JVD. No cervical lym phadenopathy. Neck is supple. Thyroid is not enlarged. Lungs: Clear to auscultation bilaterally. No rhonchi, wheezing, or crackles. No accessory muscle u se. Heart: Regular rate and rhythm. No extra sounds. Abdomen: Soft, nontender. Bowel sounds positive. No organomegaly. No masses or hernia. No rigidi ty or rebound. Extremities: No edema, clubbing, or cyanosis. Intact pulses. Skin: No rash. Neurologic: Alert, awake, oriented x3. No acute focal deficits appreciated. Investigations: BUN is 12, creatinine 0.92, and hemoglobin 11.1. Assessment And Recommendation: 1.Left bundle branch block. There is no chest pain. Cardiac enzymes are negative. Obtain an echo to further assess. 2.Wide-complex tachycardia. Patient's baseline EKG is left bundle, so this is a sinus tachycardia w ith left bundle. To treat the underlying cause for sinus tachycardia, which is the dehydration and G I bleed probably. Thank you for the consult. Cardiology will sign off. SR/MODL Voice ID: [id number] Report ID: [id number]
[2022-05-03] MEDS: METRONIDAZOLE 500mg IVPB 500 MG/100 ML BAG IV SCH ×2 (00:08→09:04)
[2022-05-03] MEDS: PANTOPRAZOLE INJ 80 MG in NA CHLORIDE 0.9% 250 ML IV SCH ×2 (00:09→06:46)
[2022-05-03 05:35] LABS: MCV 87.7 fL (80-100); MPV 7.2 fL (7.6-11.3); RBC Red Blood Cell Count 3.65 M/uL (3.86-4.86)
[2022-05-03] MEDS: OCTREOTIDE 500 MCG in NA CHLORIDE 0.9% 500 ML IV SCH ×2 (05:35→07:00)
[2022-05-03 05:54] LABS: Albumin 2.8 g/dL (3.4-5.0); Bilirubin Total 0.2 mg/dL (0.2-1.0); Potassium 3.6 mmol/L (3.5-5.1); Protein, Total 5.8 g/dL (6.4-8.2)
[2022-05-03] MEDS: METOPROLOL TAR 25 MG TAB PO SCH (06:00)
--- NOTE | 2022-05-03 07:18 | ECHO ---
HEIGHT: 5 ft 5 in WEIGHT: 261 lb 0 oz DATE OF STUDY: DR: Po Loving MD 2-DIMENSIONAL: YES M.MODE: YES DOPPLER: YES COLOR FLOW: YES TDS: PORTABLE: YES DEFINITY: BUBBLE STUDY: DIAGNOSIS: WIDE COMPLEX TACHYCARDIA CARDIAC HISTORY: CATHERIZATION: NO SURGERY: NO PROSTHETIC VALVE: NO PACEMAKER: NO MEASUREMENTS (cm) DIASTOLIC (NORMALS) SYSTOLIC (NORMALS) IVSd 1.0 (0.6-1.2) LA Diam 3.3 (1.9-4.0) LVEF 69% LVIDd 4.7 (3.5-5.7) LVIDs 2.9 (2.0-3.5) %FS 39% LVPWd 1.0 (0.6-1.2) Ao Diam 2.5 (2.0-3.7) 2 DIMENSIONAL ASSESSMENT: RIGHT ATRIUM: NORMAL LEFT ATRIUM: NORMAL RIGHT VENTRICLE: NORMAL LEFT VENTRICLE: NORMAL TRICUSPID VALVE: MILD TRICUSPID REGURGITATION MITRAL VALVE: NORMAL PULMONIC VALVE: NORMAL AORTIC VALVE: NORMAL PERICARDIAL EFFUSION: NONE AORTIC ROOT: NORMAL LEFT VENTRICULAR WALL MOTION: NORMAL DOPPLER/COLOR FLOW: MILD TRICUSPID REGURGITATION COMMENTS: 1. NORMAL LEFT VENTRICULAR EJECTION FRACTION 60-65% 2. NORMAL WALL MOTION 3. MILD TRICUSPID REGURGITATION TECHNOLOGIST: KANDICE HERNANDEZ
[2022-05-03] MEDS ORDERED: LEVOTHYROXINE SOD 0.088 MG TAB PO SCH (08:30)
[2022-05-03] MEDS ORDERED: ESCITALOPRAM 20 MG TAB PO SCH (09:00)
[2022-05-03] MEDS: CEFTRIAXONE 1,000 MG in NA CHLORIDE 0.9% 50 ML IVPB SCH (09:05)
[2022-05-03 12:12] VITALS: BP 146/66; TEMP 97.6
--- NOTE | 2022-05-03 20:06 | P.DS ---
Admission Date: 05/01/22 Discharge Date: 05/03/22 Disposition: ROUTINE DISCHARGE Discharge Condition: GOOD Reason for Admission: Diarrhea Consultations: Cardiology - Dr. Lazar GI - Dr. Howell Brief History of Present Illness: 66-year-old woman with a history of gastric sleeve, colonic polyps and hypertension presented to the emergency department due to nausea and vomiting and diarrhea on 05/01/22. Patient describes dark colored bowel movements, almost black. She also reported multiple vomiting episodes today, attributed to vomiting episodes were bloodstained. She denied any abdominal pain. In the ED patient noted to have SVT with wide-complex tachycardia, LBBB heart rate up to 148 on her EKG. Her heart rate improved after a dose of IV magnesium. Initial troponin is negative. Repeat EKG demonstrated sinus tachycardia up to 101. Patient reports shortness of breath during the episode. No chest pain. She denied any pain during my examination in the ED. lactic acid is within normal limits. She does not meet criteria for sepsis. Abdominal CT demonstrated ileus. Case discussed with GI Dr. Howell and cardiology Dr. Lazar. Patient is hospitalized for further management. Hospital Course: Problem List: Gastritis Regular wide QRS complex tachycardia, acute Left bundle branch block h/o gastric sleeve Patient was admitted for concern for upper GI bleed. Dr. Howell was consulted and patient underwent EGD, revealing mild gastritis and a hiatal hernia. No ongoing bleed, no ulcers, no obstruction. She had improvement / resolution of her symptoms. She tolerated a soft diet without issue. She was also noted to have tachycardia, which resolved with IV fluids. Cardiology was consulted. Troponins remained normal/negative. She was restarted on her home dose of metoprolol and remained in sinus rhythm. Dr. Lazar recommended follow up in the office soon to undergo cardiac stress testing. Continue home medications as previously prescribed. Discharged to increase pantoprazole to twice daily from once daily. Discharged with 10 more days of antibiotics to cover for possible bacterial gastroenteritis Follow up: PCP within 3-[address] Lee in ~3 weeks Cardiology in ~1-2 weeks Vital Signs/Physical Exam: Temp Pulse Resp BP Pulse Ox 97.6 F 58 16 146/66 H 94 05/03/22 12:00 05/03/22 12:00 05/03/22 12:00 05/03/22 12:00 05/03/22 12:00 General: In no apparent distress, Oriented x3 HEENT: EOMI, Sclerae nonicteric Respiratory: Clear to auscultation bilaterally, Normal air movement Cardiovascular: No edema, Regular rate/rhythm Gastrointestinal: Non-distended, No tenderness Musculoskeletal: No contractures, No tenderness Integumentary: No rashes, No significant lesion Neurological: Normal speech, Normal affect Laboratory Data at Discharge: WBC 3.50 K/uL (4.3-10.9) L 05/03/22 05:17 Hgb 10.4 g/dL (12.0-15.0) L 05/03/22 05:17 Hct 32.0 % (36.0-45.0) L 05/03/22 05:17 Plt Count 171 K/uL (152-406) 05/03/22 05:17 PT 11.2 SECONDS (9.5-12.5) 05/01/22 09:35 INR 1.02 05/01/22 09:35 APTT 23.8 SECONDS (24.3-36.9) L 05/01/22 09:35 Sodium 138 mmol/L (136-145) 05/03/22 05:17 Potassium 3.6 mmol/L (3.5-5.1) 05/03/22 05:17 BUN 8 mg/dL (7-18) 05/03/22 05:17 Creatinine 0.72 mg/dL (0.55-1.02) 05/03/22 05:17 Glucose 138 mg/dL (74-106) H 05/03/22 05:17 Phosphorus 2.2 mg/dL (2.5-4.9) L 05/01/22 14:53 Magnesium 2.2 mg/dL (1.6-2.4) 05/01/22 14:53 Total Bilirubin 0.2 mg/dL (0.2-1.0) 05/03/22 05:17 AST 24 U/L (15-37) 05/03/22 05:17 ALT 26 U/L (13-56) 05/03/22 05:17 Alkaline Phosphatase 45 U/L (45-117) 05/03/22 05:17 Lipase 17 U/L (13-75) 05/01/22 09:35 Home Medications: Chlorthalidone 25 mg PO DAILY 05/03/22 Ciprofloxacin HCl [Cipro] 500 mg PO BID 10 Days #20 tab 05/03/22 Escitalopram [Lexapro*] 10 mg PO DAILY 05/03/22 Ezetimibe 10 mg PO DAILY 05/03/22 Levothyroxine [Synthroid*] 1 tab PO DAILY 05/03/22 Metoprolol Succinate [Toprol Xl*] 25 mg PO DAILY 05/03/22 Pantoprazole Sodium 40 mg PO BID 30 Days #60 tab 05/03/22 Torsemide 25 mg PO DAILY 05/03/22 metroNIDAZOLE [Flagyl] 500 mg PO Q8H 10 Days #30 tab 05/03/22 New Medications: Ciprofloxacin HCl [Cipro] 500 mg PO BID 10 Days #20 tab metroNIDAZOLE [Flagyl] 500 mg PO Q8H 10 Days #30 tab Pantoprazole Sodium 40 mg PO BID 30 Days #60 tab Physician Discharge Instructions: Patient was admitted for concern for upper GI bleed. Dr. Howell was consulted and patient underwent EGD, revealing mild gastritis and a hiatal hernia. No ongoing bleed, no ulcers, no obstruction. She had improvement / resolution of her symptoms. She tolerated a soft diet without issue. She was also noted to have tachycardia, which resolved with IV fluids. Cardiology was consulted. Troponins remained normal/negative. She was restarted on her home dose of metoprolol and remained in sinus rhythm. Dr. Lazar recommended follow up in the office soon to undergo cardiac stress testing. Continue home medications as previously prescribed. Discharged to increase pantoprazole to twice daily from once daily. Discharged with 10 more days of antibiotics to cover for possible bacterial gastroenteritis Follow up: PCP within 3-[address] Lee in ~3 weeks Cardiology in ~1-2 weeks Followup: Geoffrey Lazar MD [ACTIVE - CAN ADMIT] - (Call to schedule appointment ) Chi Howell MD [ASSOCIATE-ACTIVE - CAN ADMIT] - (Call to schedule appointment) Time spent managing pt's care (in minutes): 45
== END 2022-05-03 15:06 | disposition home or self-care (01) | DRG 372 ==
LOC: ER 08:59 → ERHOLD 13:33 → 2ND 14:04
PROVIDERS: ADMIT Internal Medicine; ATTEND Hospitalist
PROC: 0DB78ZX Excision of Stomach, Pylorus, Via Natural or Artificial Opening Endoscopic, Diagnostic (ICD-10-PCS; principal; 2022-05-03)
DX: A04.9 Bacterial intestinal infection, unspecified (principal); K56.7 Ileus, unspecified; Z68.41 Body mass index [BMI] 40.0-44.9, adult; K44.9 Diaphragmatic hernia without obstruction or gangrene; R00.0 Tachycardia, unspecified; I44.7 Left bundle-branch block, unspecified; E86.0 Dehydration; I11.0 Hypertensive heart disease with heart failure; I50.9 Heart failure, unspecified; K80.20 Calculus of gallbladder without cholecystitis without obstruction; E03.9 Hypothyroidism, unspecified; E66.01 Morbid (severe) obesity due to excess calories; Z98.84 Bariatric surgery status; Z79.899 Other long term (current) drug therapy; Z88.2 Allergy status to sulfonamides; Z88.8 Allergy status to other drugs, medicaments and biological substances; Z86.010 Personal history of colon polyps; Z90.710 Acquired absence of both cervix and uterus; Z20.822 Contact with and (suspected) exposure to COVID-19; Z82.3 Family history of stroke; Z80.42 Family history of malignant neoplasm of prostate; Z80.0 Family history of malignant neoplasm of digestive organs
CPT/HCPCS: 0240U; 36415; 71045; 74177; 80048; 80053; 82947; 83605; 83690; 83735; 83880; 84100; 84439; 84443; 84484; 85014; 85018; 85025; 85027; 85610; 85730; 86850; 86900; 86901; 88305; 88312; 93005; 93306; 94640; 94760; 96361; 96365; 96375; 99285; C9113; J2270; J2354; J2405; J2704; J3010; J3475; J7030; J7040; J7042; J7050; J7120; J7613; J7644; Q9967

== ENCOUNTER → 2023-05-28 | Emergency (ER) | payer OTHER ==
[~2023-05-28] MED LIST: DIPHENHYDRAMINE 50 MG/ML VIAL ONE; FAMOTIDINE 20 MG/2 ML VIAL IV ONE; FUROSEMIDE 20 MG/ 2ML VIAL ONE; KETOROLAC 30 MG/ML INJ ONE; METHYLPREDNISOLONE 125 MG INJ ONE; MORPHINE 4 MG/ML SYR ONE; ONDANSETRON 4 MG/2 ML VIAL ONE; POTASSIUM CL SA 10 MEQ TAB PO ONE
--- OUTSIDE RECORDS SUMMARY | 2023-05-28 09:45 | XMS REPORT | Continuity of Care Document ---
Author Name Unknown Address [address] [facility] [place] [address] [facility] Address [address] [facility] [place] [address] Care Team Providers Care Arson Investigator Name Role Phone Palmira Goode Attending Clinician Unavailable SMITH ANTONIO Attending Clinician Unavailable LAB90 Attending Clinician Unavailable KATERINA MIRZA Attending Clinician UnaBRAEDEN Levy Attending Clinician Unavailable [facility] Attending Clinic tony Unavailable ELIANE HEMPHILL Attending Clinician Un available DR ALEXANDRA PENALOZA Attending Clinician Unavailable Palmira Goode Admitting Clinician Unavailable ELIANE HEMPHILL Admitting Clinician Un available DR ALEXANDRA PENALOZA Admitting Clinician Unavailable Payers Payer Name Policy Type Policy Number Effective Date Expirati on Date Source KSENIA MADSEN PPO 5 [id number] 2021 00:00:00 Problems Condition Name Condition Details Condition Category Status Onset Date Resolution Date Last Treatment Date Treating Clinician Comments Source Morbid obesity Morbid obesity Disease Active 2022-03 2-05 00:00: 00 Aminata ashraf Anxiety Anxiety Disease Active 2021-03 0-10 00:00: 00 Aminata ashraf Hyperlipid emia Hyperlipid emia Disease Active 2021-03 00:00: 00 Aminata Bhagat - Externa andriy Hypothyroi dism (acquired) Hypothyroi dism (acquired) Disease Active 2021-03 00:00: 00 Aminata Bhagat - Externa andriy Primary hypertensi on Primary hypertensi on Disease Active 2021-03 00:00: 00 Aminata Bhagat - Externa andriy Gastroesop hageal reflux disease without esophagiti s Gastroesop hageal reflux disease without esophagiti s Disease Active 2021-03 00:00: 00 Aminata Bhagat - Externa andriy Allergies, Adverse Reactions, Alerts Allergy Name Allergy Type Status Severity Reaction(s) Onset Date Inactive Date Treating Clinician Comments Source Na Benzoate -Sulfame thoxazol e-Trimet hoprim Propensi ty to adverse reaction s Active Hives 2021-03 00:00: 00 Aminata Spann Externa andriy Tylenol Propensi ty to adverse reaction s Active 2021-03 00:00: 00 PATIENT STATES SHE FELT HORRIBLE AND WENT TO THE ER Aminata ashraf Acetamin ophen Injectio n Propensi ty to adverse reaction s Active 09-08 00:00: 00 Aminata Bhagat - Externa andriy sulfamet hoxazole DA Active SV 10-01 00:00: 00 [facility] trimetho prim DA Active SV 10-01 00:00: 00 [facility] trimetho prim DA Active SV hives breakout itchiness 10-01 00:00: 00 [facility] sulfamet hoxazole DA Active SV hives breakout itchiness 10-01 00:00: 00 [facility] Sulfamet hoxazole W-Trimet hoprim Propensi ty to adverse reaction s Active 03-07 00:00: 00 Aminata Spann Externa andriy No Known Intolera nces DA Active U 2008-03 00:00: 00 [facility] No Known Intolera nces DA Active U 2008-03 00:00: 00 [facility] Social History Social Habit Start Date Stop Date Quantity Comments Source History SDOH Alcohol Frequency Aminata No leslye - External History SDOH Alcohol Std Drinks Aminata crandall - External History SDOH Alcohol Binge Aminatanick Bhagat - External History of tobacco use Current smoker Aminata Zari vega - External Sexual orientation Natalya Bhagat - External Alcohol intake 2023-02-07 00:00:00 2023-02-07 00:00:00 Current drinker of alcohol (finding) Aminata Bhagat - External Alcohol Comment 2021-12-13 00:00:00 2021-12-13 00:00:00 SOCIAL Aminata Bhagat - External History of Social function 2021-12-13 00:00:00 2021-12-13 00:00:00 Aminata Leola - External Sex Assigned At 1955 00:00:00 1955 00:00:00 Aminata Seluis mtheresa - External Smoking Status Start Date Stop Date Source Ex-smoker 2021-12-13 00:00:00 2021-12-13 00:00:00 Natalya Bhagat - External Medications Ordered Medication Name Filled Medication Name Start Date Stop Date Current Medication? Ordering Clinician Indication Dosage Frequency Signature (SIG) Comments Components Source Calcium Carbonate-V itamin D (Oyster Shell Calcium/D) 500-5 MG-MCG oral Tablet 2022-03 13:29: 10 Yes 1{tbl} Take 1 tablet by mouth daily Aminata ashraf Magnesium 400 MG oral Capsule 2022-03 13:29: 10 Yes Take by mouth Aminata ashraf Levothyroxi ne Sodium 88 MCG oral Capsule 2022-03 13:29: 10 Yes 88ug Take 88 mcg by mouth daily Aminata ashraf Potassium 99 MG oral Tablet 2022-03 13:29: 10 Yes Take by mouth Aminata ashraf Pantoprazol e Sodium 40 MG oral Pack 2022-03 11:55: 05 02-07 00:00 :00 No 40mg Take 40 mg by mouth daily Aminata ashraf Escitalopra m Oxalate 10 MG oral Tablet 2022-03 00:00: 00 Yes [id number] 10mg Take 1 tablet (10 mg total) by mouth daily. Aminata ashraf Losartan Potassium (COZAAR) 50 MG oral Tablet 11-25 00:00: 00 Yes Aminata ashraf Amoxicillin 875 MG oral Tablet 2021-03- 00:00: 00 02-07 00:00 :00 No [id number] 875mg Take 1 tablet (875 mg total) by mouth 2 times daily Aminata ashraf Nitrofurant oin Monohyd Macro 100 MG oral Capsule 2021-03 00:00: 00 02-07 00:00 :00 No [id number] 100mg Take 1 capsule (100 mg total) by mouth 2 times daily Aminata ashraf Calcium Carbonate-V itamin D (Oyster Shell Calcium/D) 500-5 MG-MCG oral Tablet 2021-03 10:44: 46 Yes 1{tbl} Take 1 tablet by mouth daily Aminata ashraf Magnesium 400 MG oral Capsule 2021-03 10:44: 46 Yes Take by mouth Aminata ashraf Levothyroxi ne Sodium 88 MCG oral Capsule 2021-03 10:44: 46 Yes 88ug Take 88 mcg by mouth daily Aminata ashraf Pantoprazol e Sodium 40 MG oral Pack 2021-03 10:44: 46 Yes 40mg Take 40 mg by mouth daily Aminata ashraf Potassium 99 MG oral Tablet 2021-03 10:44: 46 Yes Take by mouth Aminata ashraf Torsemide 20 MG oral Tablet 2021-03 10:44: 06 12-13 00:00 :00 No Aminata ashraf Metoprolol Succinate 25 MG oral TABLET SR 24 HR 09-05 00:00: 00 Yes Aminata ashraf Metoprolol Succinate 25 MG oral TABLET SR 24 HR 09-05 00:00: 00 Yes Aminata ashraf Ezetimibe 10 MG oral Tablet 08-03 00:00: 00 Yes 10mg Take 10 mg by mouth daily Aminata ashraf Torsemide 100 MG oral Tablet 08-03 00:00: 00 Yes 25mg Take 25 mg by mouth daily Aminata ashraf Ezetimibe 10 MG oral Tablet 08-03 00:00: 00 Yes 10mg Take 10 mg by mouth daily Aminata ashraf Torsemide 100 MG oral Tablet 08-03 00:00: 00 Yes 25mg Take 25 mg by mouth daily. Aminata ashraf Metoclopram guerda HCl 10 MG oral Tablet 06-24 00:00: 00 12-13 00:00 :00 No TAKE 2 TABLETS BY MOUTH DIRECTED USE DIRECTED PER YOUR COLONOSCOP Y PREP PACKET Aminata ashraf Chlorthalid one 25 MG oral Tablet 06-10 00:00: 00 Yes 1{tbl} Take 1 tablet by mouth every morning Aminata ashraf Escitalopra m Oxalate 10 MG oral Tablet 06-10 00:00: 00 Yes 10mg Take 10 mg by mouth daily Aminata ashraf Chlorthalid one 25 MG oral Tablet 06-10 00:00: 00 Yes 1{tbl} Take 1 tablet by mouth every morning Aminata ashraf Escitalopra m Oxalate 10 MG oral Tablet 06-10 00:00: 00 02-07 00:00 :00 No 10mg Take 10 mg by mouth daily Aminata ashraf Immunizations Ordered Immunization Name Filled Immunization Name Date Status Comments Source Influenza Virus Vaccine, Quadrivalent, High Dose, Age 65 And Up 2021-12-13 00:00:00 Completed Aminata Reyna COVID-19 VACCINE PFIZER 12+ (Mckeon cap) 2021-12-13 00:00:00 Completed Aminata Reyna Influenza vaccine, quadrivalent, adjuvanted 2021-01-15 00:00:00 Completed Aminata Reyna Pneumococcal Vaccine, Conjugate 13 2021-01-15 00:00:00 Completed Aminata Reyna Shingles IM (Shingrix) 2020-03-28 00:00:00 Completed Aminata Bhagat - External Shingles IM (Shingrix) 2019-12-08 00:00:00 Completed Aminata Bhagat - External Influenza, Injectable, Mdck, Preservative Free, Quadrivalt 2017-12-13 00:00:00 Completed Aminata Bhagat - External Influenza vaccine, quadrivalent, adjuvanted, 65+ Unknown Completed Aminata Hinkle ld - External Pneumococcal Vaccine, Conjugate 13 Unknown Completed Aminata Hogueold - External Shingles IM (Shingrix) Unknown Completed Aminata Bhagat - External Shingles IM (Shingrix) Unknown Completed Aminata Hogueold - External Influenza Virus Vaccine, Quadrivalent, High Dose, Age 65 And Up Unknown Completed Aminata tijerinabold - External COVID-19 VACCINE PFIZER 12+ (Mckeon cap) Unknown Completed Aminata Hogueold - External Influenza vaccine, quadrivalent, adjuvanted, 65+ Unknown Completed Aminata Hinkle ld - External Influenza, Injectable, Mdck, Preservative Free, Quadrivalent Unknown Completed Aminata Bhagat - External Vital Signs Vital Name Observation Time Observation Value Comments S ource Systolic blood pressure 2023-02-07 19:59:00 136 mm[Hg] Aminata Seybo ld - External Diastolic blood pressure 2023-02-07 19:59:00 80 mm[Hg] Aminata Roachybo ld - External Heart rate 2023-02-07 19:23:00 70 /min Armand y Seybold - External Body temperature 2023-02-07 19:23:00 35.67 Conchita Aminata Roachybold - External Respiratory rate 2023-02-07 19:23:00 15 /min Aminata Seybold - External Body height 2023-02-07 19:23:00 166.4 cm Elly tijerina Seybold - External Body weight 2023-02-07 19:23:00 120.203 kg Elly ey Seybold - External BMI 2023-02-07 19:23:00 43.43 kg/m2 Elly ey Seybold - External Systolic blood pressure 2021-12-13 15:34:00 140 mm[Hg] Aminata Seybo ld - External Diastolic blood pressure 2021-12-13 15:34:00 78 mm[Hg] Aminata Seybo ld - External Heart rate 2021-12-13 15:34:00 95 /min Alan y Seybold - External Body temperature 2021-12-13 15:34:00 35.39 Conchita Aminata Bhagat - External Respiratory rate 2021-12-13 15:34:00 16 /min Aminata Hogueold - External Body height 2021-12-13 15:34:00 165.1 cm Elly tijerina Seybold - External Body weight 2021-12-13 15:34:00 116.574 kg Elly ey Seybold - External BMI 2021-12-13 15:34:00 42.77 kg/m2 Elly ey Seybold - External Encounters Start Date/Time End Date/Time Encounter Type Admission Type Attending [facility] Facility Care Department Encounter ID Source 2019-10-02 14:00:00 Inpatient Palmira Goode [facility] [id number] [facility] 2023-08-09 10:30:00 2023-08-09 10:30:00 Outpatient SMITH ANTONIO [id number] [facility] 2023-04-05 10:25:00 2023-04-05 10:25:00 Outpatient LAB90 AMINATA KIRK [id number] Aminata [facility] 2023-03-23 00:00:00 2023-03-23 00:00:00 Outpatient KATERINA MIRZA [id number] Aminata [facility] 2023-03-23 00:00:00 2023-03-23 00:00:00 Outpatient KATERINA MIRZA [id number] Aminata [facility] 2023-03-22 00:00:00 2023-03-22 00:00:00 Outpatient KATERINA MIRZA [id number] Aminata [facility] 2023-02-10 00:00:00 2023-02-10 00:00:00 Outpatient BRAEDEN WOLFE [id number] Aminata [facility] 2023-02-10 00:00:00 2023-02-10 00:00:00 [id number] [facility]00 2023-02-09 00:00:00 Outpatient HERMES, KATERINA [facility]INATA [facility]IR[facility] [id number] [facility] 00:00:00 2023-02-09 00:00:00 Outpatient PREZABRAEDEN Noriega AMINATA KIRK [id number] Aminata Seybold 2023-02-08 00:00:00 2023-02-08 00:00:00 Outpatient HERMES, KATERINA AMINATA KIRK [id number] [facility] 2023-02-07 14:30:00 2023-02-07 14:30:00 Outpatient LAB90 AMINATA KIRK [id number] [facility] 2023-02-07 13:30:00 2023-02-07 13:30:00 Outpatient HERMES, KATERINA AMINATA KIRK [id number] [facility] 2023-02-07 13:00:00 2023-02-07 13:00:00 Outpatient HUNDJUMANA AshrafY [facility]INATA [facility] [id number] [facility] 2022-11-02 00:00:00 2022-11-02 00:00:00 Outpatient HERMES, KATERINASADIA KIRK [id number] [facility] 2022-02-18 00:00:00 2022-02-18 00:00:00 Outpatient HERMES, KATERINA KIRK [id number] [facility] 2022-01-11 00:00:00 2022-01-11 00:00:00 Outpatient HERMES, KATERINA KIRK [id number] [facility] 2022-01-11 00:00:00 2022-01-11 00:00:00 Outpatient HERMES, KATERINA KIRK [id number] [facility] 2021-12-20 00:00:00 2021-12-20 00:00:00 Outpatient HERMES, KATERINA KIRK [id number] [facility] 2021-12-15 00:00:00 2021-12-15 00:00:00 Outpatient HERMES, KATERINA KIRK [id number] Aminata Seybold 2021-12-13 12:05:00 2021-12-13 12:05:00 Outpatient LAB90 AMINATA KIRK [id number] Aminata Bhagat 2021-12-13 11:20:00 2021-12-13 11:20:00 Outpatient COVID-PFIZE BONNIE ZIMMERMAN [id number] Aminata Bhagat 2021-12-13 10:45:00 2021-12-13 10:45:00 Outpatient KATERINA MIRZA AMINATA [id number] Aminata Bhagat 2020-11-19 12:00:00 2020-11-19 12:00:00 Outpatient ELIANE HARRELL [facility]CAPM [facility]INTER [id number] [facility] 2019-09-28 08:00:00 2019-09-28 08:00:00 Outpatient NoahsulmaPalmira zazueta [facility] [id number] [facility] 2016-07-07 04:47:00 2016-07-07 08:30:00 Outpatient ALEXANDRA ALVARENGA [facility] [id number] [facility] Results Test Description Test Time Test Comments Results Result Co mments Source COMPREHENSIVE METABOLIC [id number] 12:54:00* Test Item Value Reference Range Interpretation Comme nts SODIUM (test code = NA) 138 mmol/L 134-147 N POTASSIUM (test code = K) 3.0 mmol/L 3.4-5.0 L CHLORIDE (test code = CL) 100 mmol/L 100-108 N CARBON DIOXIDE (test code = CO2) 31 mmol/L 21-32 N ANION GAP (test code = GAP) 7.0 GAP calc 4.0-15.0 N GLUCOSE (test code = GLU) 95 MG/DL 70-110 N BLOOD UREA NITROGEN (test code = BUN) 23 MG/DL 7-18 H GLOMERULAR FILTRATION RATE (test code = GFR) >=60 max estimate estGFR >60 CREATININE (test code = CREAT) 0.9 MG/DL 0.6-1.0 N TOTAL PROTEIN (test code = PROT) 7.6 G/DL 6.4-8.2 N ALBUMIN (test code = ALB) 3.8 G/DL 3.4-5.0 N GLOBULIN (test code = GLOB) 3.8 GM/dL ALBUMIN/GLOBULIN RATIO (test code = A/G) 1.0 RATIO 1.2-2.2 L CALCIUM (test code = CA) 9.2 MG/DL 8.5-10.1 N BILIRUBIN TOTAL (test code = BILT) 0.50 MG/DL 0.2-1.2 N SGOT/AST (test code = AST) 16 Unit/L 15-37 N SGPT/ALT (test code = ALT) 21 Unit/L 12-78 N ALKALINE PHOSPHATASE TOTAL (test code = ALKP) 63 Unit/L 45-117 N LIPID PROFILE (CORONARY RISK)2019-10-02 12:54:00* Test Item Value Reference Range Interpretation Comme nts TRIGLYCERIDES (test code = TRIG) 94 MG/DL 0-150 N CHOLESTEROL (test code = CHOL) 184 MG/DL 133-200 N CHOLESTEROL/HDL RATIO (test code = CHOLHDL) 3.54 RATIO >0 HDL CHOLESTEROL (test code = HDL) 52 MG/DL 40-59 N NON-HDL CHOLESTEROL (test co de = NHDL) 132 mg/dL <130 H LIPOPROTEIN LDL (test code = LDL) 117 MG/DL 0-129 N LDL/HDL (test code = LDL/HDL) 2.25 Ratio 1.48-3.22 Avg N PROTHROMBIN [id number] 12:33:00* Test Item Value Reference Range Interpretation Comme nts PT PATIENT (test code = PTP) 12.0 SECONDS 9.3-12.9 N INTERNATIONAL NORMAL RATIO (test code = INR) 1.06 INR Unit 0.8-1.2 N THROMBOPLASTIN TIME [id number] 12:33:00* Test Item Value Reference Range Interpretation Comme nts THROMBOPLASTIN TIME PARTIAL (test code = PTT) 30.4 SECONDS 26-35 N COVID 19 Asymptomatic IH [id number] 11:27:00* Test Item Value Reference Range Interpretation Comme nts COVID 19 Asymptomatic IH AG (test code = COVNONPUIAG) NEGATIVE Negative Per metal roofing mechanic , negative results should be treated aspresumptive and, if inconsistent with clinical signs andsymptoms or necessary for patient management, should betested with an alternative molecular assay. Negative resultsdo not preclude SARS-CoV-2 infection and should not be usedas the sole basis for patient management decisions. Negative results should be considered in the context of apatient's recent exposures, history, presence of clinicalsigns and symptoms consistent with COVID-19. Notes Date/Time Note Provider Source 2019-10-02 14:32:00 [id number] [address] PATIENT NAME: EMILY MAST ADMIT DATE: 10/02/19ACCOUNT NO: [id number] ROOM NO: AGE: 64 REPORT TYPE: CARDIAC CATHETERIZATION REPORT SEX: F ADMITTING PHYSICIAN: ATTENDING PHYSICIAN: Palmira Goode MD PROCEDURE DATE: 10/02/2019 JAVA APPLICATION ENGINEER: Palmira Goode MD TITLE OF THE PROCEDURE: Left heart catheterization and closing device. INDICATION FOR THE PROCEDURE: Dyspnea, abnormal stress test, high likelihood ofsignificant coronary artery disease, abnormal stress test. ESTIMATED BLOOD LOSS: Minimal. COMPLICATIONS: None. CONTRAST: 35 mL. ANESTHESIA: Conscious sedation with Versed and fentanyl and 1% lidocaine forlocal anesthesia. FINAL DIAGNOSES: No angiographic coronary artery disease. RECOMMENDATION: Medical therapy. PROCEDURE IN DETAIL: After informed consent, the patient was brought to thecardiac catheterization lab in a stable fasting nonsedated state. She wasprepped and draped in the usual sterile fashion. After conscious sedation, 1%lidocaine was administered to the right common femoral artery area for localanesthesia. A 6-Palauan sheath was placed in the right common femoral arteryusing standard techniques and fluoroscopy. After heparinization, left coronaryangiogram showed no angiographic coronary artery disease. Right coronaryangiogram showed no angiographic coronary artery disease. It was a dominantvessel. Left ventricular angiogram showed an ejection fraction of 60%, leftventricular end-diastolic pressure of 17 and no wall motion abnormalities oraortic valve gradient. The right groin was sealed using Angio-Seal. There wereno complications. The patient tolerated the procedure well. She wastransferred back to the holding area for observation to be discharged later ontoday on medical therapy and risk factor modification. CORRECTED 10/03/2019 NM Dictated By: Palmira Goode MD WT: CATH:L.ERVIN/SLIME/ISA PATIENT NAME: EMILY MAST DT: 10/02/2019 15:00:15Conf#: [id number]/DID#: [id number] Authenticated by Palmira Goode MD On 10/04/2019 07:57:04 AM at 0757 PATIENT NAME: EMILY MAST [id number]:00:00L.[id number] ble for patient [id number]:57:33 [facility] 2019-10-01 17:08:00 [id number] 8:[id number] [place] [address] PATIENT NAME: EMILY MAST ADMIT DATE: 10/02/19ACCOUNT NO: [id number] ROOM NO: AGE: 64 REPORT TYPE: HISTORY AND PHYSICAL SEX: F ADMITTING PHYSICIAN: ATTENDING PHYSICIAN: Palmira Goode MD ADMISSION DATE: 10/02/2019 REASON FOR ADMISSION: Dyspnea, abnormal nuclear stress test for cardiaccatheterization and possible revascularization. HISTORY OF PRESENT ILLNESS: Emily is a 64-year-old lady who I have beenfollowing for some time for many years with mild mitral regurgitation andhistory of PFO. The patient lately has been having worsening dyspnea on minimalexertion. Noninvasive workup was carried out with a nuclear stress test, whichwas strongly positive for ischemia in the LAD distribution. The patient's lastHolter monitor continued to show mild ectopy, which has been stable. Herechocardiogram continued to show stable heart function. Given the informationon the nuclear stress test and the patient's symptoms and her risk factors, sheis here for cardiac catheterization to assess for possible revascularization. She has no history of chest pains. She does have palpitations and dyspnea onminimal exertion. PAST MEDICAL HISTORY: Remarkable for hypertension, hyperlipidemia, PFO,hypothyroidism, neuropathy, and allergies. PAST SURGICAL HISTORY: Remarkable for hysterectomy, knee replacements, gastricbypass sleeve and cataract surgeries. ALLERGIES: BACTRIM CAUSES RASH. MEDICATIONS: Listed include aspirin, magnesium, multivitamin, Levothroid,escitalopram 10 mg daily, potassium pxia-wzx-umfoagd daily, losartan 100 mgdaily, ezetimibe 10 mg daily, metoprolol 25 mg half daily, chlorthalidone 25 mgdaily, and Protonix 40 mg daily, torsemide 20 mg daily. SOCIAL HISTORY: There is no history of smoking. She does drink alcoholsocially. There is no history of street drug use. FAMILY HISTORY: Positive for atherosclerotic cardiovascular disease. REVIEW OF SYSTEMS: Remarkable for fatigue, headaches, dizziness, insomnia,weight gain, seasonal allergies, hypothyroidism, snoring, nonspecific abdominalcramps, change in bowel habits, easy bruisability, depression symptoms,difficulty balancing at time, leg cramps. No acute GI or symptoms. No TIAsor strokes. PHYSICAL EXAMINATION: PATIENT NAME: EMILY MAST GENERAL: Reveals a pleasant middle-aged lady in no acute distress.VITAL SIGNS: Blood pressure 110/78, pulse 72 and regular, respiratory rate 18and unlabored, and temperature afebrile.HEENT: Head, atraumatic and normocephalic. Eyes and ENT examination withinnormal for age.NECK: Supple. No jugular venous distention, bruits, or lymphadenopathy. Normal upstroke.LUNGS: Clear and resonant.HEART: Regular rate and rhythm with II/ systolic ejection murmur at the leftlower sternal border. No gallops.ABDOMEN: Soft, obese. No tenderness. No organomegaly, no masses or bruits.EXTREMITIES: 2 to 3+ edema, which is chronic with varicosities, 2+ distalpulses. No cyanosis or clubbing.NEUROLOGIC: Alert and oriented x3. Examination appears to be nonfocal. LABORATORY DATA: Pending. Noninvasive cardiovascular workup enclosed. IMPRESSION: This is a 64-year-old lady with multiple cardiovascular riskfactors, who has worsening symptoms and strongly abnormal nuclear stress test atlow exercise capacity. The patient has high likelihood of significant coronaryartery disease. She is here for cardiac catheterization to assess for possiblerevascularization. RECOMMENDATION: Is to proceed with left heart catheterization and possiblerevascularization. The risks and benefits of the planned procedure werediscussed in detail with the patient and she is willing to proceed. Rest as perorders. CORRECTED 10/02/2019 NM Dictated By: Palmira Goode MD WT: HP:L.MADELINE/SLIME/ISADD: 10/01/2019 17:08:54DT: 10/01/2019 19:04:19Conf#: [id number]/DID#: [id number] by Palmira Goode MD On 10/02/2019 02:39:20 PM at 1439 PATIENT NAME: EMILY MAST and physical [id number]:04:00L.[id number] VAvailable for patient [id number]:39:52 HCAPM
[2023-05-28 10:29] LABS: Absolute Eosinophils 0.1 K/uL (0-0.5); Absolute Lymphocytes (CBC) 1.7 K/uL (0.7-4.9); Absolute Monocytes 0.6 K/uL (0.1-1.3); Absolute Neutrophil 3.3 K/uL (1.8-8.0); Basophils % 0.8 % (0-1.3); Eosinophils % 2.6 % (0-4.4); Hematocrit 39.5 % (36.0-45.0); Hemoglobin 12.8 g/dL (12.0-15.0); Lymphocytes % 28.9 % (15.3-44.8); MCH 29.5 pg (27.0-35.0); MCHC 32.4 g/dL (32.0-36.0); MCV 90.8 fL (80-100); MPV 7.4 fL (7.6-11.3); Monocytes % 10.6 % (3.3-12.3); Neutrophils % 57.1 % (41.7-73.7); Platelets 291 thou/uL (152-406); RBC Red Blood Cell Count 4.35 M/uL (3.86-4.86); Red Cell Distribution Width 14.8 % (12.1-15.2)
[2023-05-28 10:49] LABS: Anion Gap 7.4 mEq/L (5.0-15.0); Potassium 3.4 mEq/L (3.5-5.1); Troponin High Sensitivity 5.5 pg/mL (<58.9)
--- NOTE | 2023-05-28 10:51 | RAD REPORT ---
EXAM DESCRIPTION: RAD - Chest Single View - 05/28/2023 10:12 am CLINICAL HISTORY: CHEST PAIN Chest pain. COMPARISON: Chest Single View dated 05/02/2022; Chest Single View dated 05/01/2022; Chest Single View dated 02/25/2018; Chest Single View dated 05/07/2017 FINDINGS: Portable technique limits examination quality. Mild interstitial pulmonary edema seen. The heart is mildly enlarged in size. No displaced fractures. IMPRESSION: Mild CHF.
--- NOTE | 2023-05-28 10:51 | RAD REPORT ---
EXAM DESCRIPTION: RAD - Shoulder Left 2 View - 05/28/2023 10:12 am CLINICAL HISTORY: PAIN COMPARISON: No comparisons FINDINGS: Mild AC joint and glenohumeral joint arthritic changes. No acute fracture or dislocation.
--- NOTE | 2023-05-28 12:40 | EDPHYS ---
Physician Documentation [facility] Name: Maryellen Reed Age: 67 yrs Sex: Female : 1955 Arrival Date: 05/28/2023 Time: 09:41 Bed 6 Private MD: ED Physician Kristian Marrero HPI: 05/27 10:27 This 67 yrs old Female presents to ER via Ambulatory with complaints of Shoulder Pain - kb left. 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 States she was standing in the kitchen when the pain started. Denies reaching, pulling or trauma prior to pain onset. Denies shortness of breath, chest pain, numbness, tingling, radiating pain down arm. Pain aggravated by movement of left shoulder and palpation. Slightly improves if she isn't moving.. Historical: - Allergies: 09:52 Bactrim; nj1 10:38 Morphine (itching) (May 28, 2023); jp5 - PMHx: 09:52 CHF; Heart Murmur; Hyperlipidemia; Hypertensive disorder; nj1 - PSHx: 09:52 Total abdominal hysterectomy; gastric sleeve; nj1 - Immunization history:: Client reports receiving the 2nd dose of the Covid vaccine. - Social history:: Smoking status: Patient denies any tobacco usage or history of. ROS: 10:26 Constitutional: As per HPI kb Exam: 10:26 Constitutional: This is a well developed, well nourished patient who is awake, alert, kb and in no acute distress. Head/Face: Normocephalic, atraumatic. ENT: Moist Mucous membranes Cardiovascular: Regular rate Respiratory: Respirations even and unlabored. No increased work of breathing. Talking in full sentences Abdomen/GI: Soft, non-tender. No distention Skin: Warm, dry with normal turgor. Normal color. Neuro: Awake and alert, GCS 15, oriented to person, place, time, and situation. Moves all extremities. Normal gait. 10:26 Musculoskeletal/extremity: Extremities: grossly normal except: noted in the posterior aspect of left shoulder: pain, tenderness, ROM: limited active range of motion due to pain, Circulation is intact in all extremities. Sensation intact. Vital Signs: 09:49 BP 133 / 72; Pulse 77; Resp 18; Temp 97.9(TE); Pulse Ox 98% ; Weight 117.93 kg; Height nj1 5 ft. 5 in. ; Pain 8/10; 10:08 BP 130 / 70 RA Sitting (auto/lg); Pulse 73; Resp 20; Pulse Ox 97% on R/A; ph 10:30 BP 134 / 80; Pulse 71; Resp 18; Pulse Ox 95% on R/A; ph 11:30 BP 138 / 70 RA Sitting (auto/lg); Pulse 60; Resp 18; Pulse Ox 91% on R/A; jp5 12:30 BP 122 / 64; Pulse 60; Resp 18; Pulse Ox 94% on R/A; jp5 09:49 Body Mass Index 43.26 (117.93 kg, 165.1 cm) nj1 09:49 Pain Scale: Adult nj1 MDM: 09:48 Patient medically screened. kb 10:27 Data reviewed: vital signs, nurses notes. kb 10:29 Differential diagnosis: strain, radiculopathy, abnormal ekg, NM. kb 12:37 Consideration of Admission/Observation Escalation of care including kb admission/observation considered. admission considered, but pt denies chest pain or shortness of breath. Lungs clear bilaterally, resp even and unlabored. patient's shoulder pain is reproducible with palpation and movement. . Historians other than the Patient: Spouse/Significant Other: . Care significantly affected by the following chronic conditions: Hypertension, Congestive Heart Failure. Counseling: I had a detailed discussion with the patient and/or guardian regarding the historical points, exam findings, and any diagnostic results supporting the discharge/admit diagnosis, lab results, radiology results, the need for outpatient follow up, a family practitioner, to return to the emergency department if symptoms worsen or persist or if there are any questions or concerns that arise at home. 05/27 09:52 Order name: Basic Metabolic Panel; Complete Time: 10:50 kb 05/27 09:52 Order name: CBC with Diff; Complete Time: 10:42 kb 05/27 09:52 Order name: Troponin HS; Complete Time: 10:50 kb 05/27 12:01 Order name: Troponin High Sensitivity; Complete Time: 12:37 kb 05/27 09:52 Order name: XRAY Chest (1 view); Complete Time: 10:53 kb 05/27 09:52 Order name: Shoulder Left (2 View) XRAY; Complete Time: 10:53 kb 05/27 09:52 Order name: EKG; Complete Time: 09:53 kb 05/27 09:52 Order name: Cardiac monitoring; Complete Time: 10:20 kb 05/27 09:52 Order name: EKG - Nurse/Tech; Complete Time: 10:20 kb 05/27 09:52 Order name: IV Saline Lock; Complete Time: 10:20 kb 05/27 09:52 Order name: Labs collected and sent; Complete Time: 10:20 kb 05/27 09:52 Order name: O2 Per Protocol; Complete Time: 10:22 kb 05/27 09:52 Order name: O2 Sat Monitoring; Complete Time: 10:22 kb Administered Medications: 10:32 Drug: Ondansetron IVP 4 mg IVP once; over 2 minutes Route: IVP; Site: left antecubital; jp5 10:40 Follow up: Response: No adverse reaction ph 10:33 Drug: morphine IVP or IV 4 mg IVP once over 4 mins Route: IVP; Infused Over: 4 mins; jp5 Site: left antecubital; 10:33 Follow up: Response: Adverse reaction, Physician notified ph 10:38 Drug: diphenhydrAMINE IVP 12.5 mg IVP once Route: IVP; Site: left antecubital; jp5 10:40 Follow up: Response: No adverse reaction; Marked relief of symptoms ph 10:38 Drug: MethylPrednisoLONE IVP 125 mg IVP once Route: IVP; Site: left antecubital; jp5 10:40 Follow up: Response: No adverse reaction; Marked relief of symptoms ph 10:38 Drug: Famotidine IVP 20 mg IVP once; dilute with 10 mL 0.9% NaCl; give over 2 minutes jp5 Route: IVP; Site: left antecubital; 10:40 Follow up: Response: No adverse reaction; Marked relief of symptoms ph 11:35 Drug: Furosemide IVP 20 mg IVP once; give over 2 minutes Route: IVP; Site: left forearm;iw 11:35 Drug: Ketorolac IVP 15 mg IVP once Route: IVP; Site: left forearm; iw 11:36 Drug: Potassium Chloride PO 20 mEq PO once Route: PO; iw Disposition Summary: 05/28/23 12:39 Discharge Ordered Notes: Location: Home kb Condition: Stable kb Diagnosis - Pain in left shoulder kb Followup: kb - With: Emergency Department - When: As needed - Reason: Worsening of condition Followup: kb - With: Private Physician - When: 2 - 3 days - Reason: Recheck today's complaints, Continuance of care, Re-evaluation by your physician Discharge Instructions: - Discharge Summary Sheet kb - Musculoskeletal Pain kb - Shoulder Pain, [id number] kb - Cervical Radiculopathy, [id number] kb Forms: - Medication Reconciliation Form kb - Thank You Letter kb - Antibiotic Education kb - Prescription Opioid Use kb - Patient Portal Instructions kb - Leadership Thank You Letter kb Prescriptions: - Diclofenac Sodium 75 mg Oral tablet, delayed release (enteric coated) - take 1 tablet ORAL route 2 times per day As needed; 30 tablet; Refills: 0, kb Product Selection Permitted - orphenadrine citrate 100 mg Oral Tablet Sustained Release - take 1 tablet ORAL route 2 times per day As needed; 20 tablet; Refills: 0, kb Product Selection Permitted Signatures: Dispatcher [employer] Sydnee Donaldson, YARD CLEANER-C YARD CLEANER-CkYissel Aleman, RN RN iw Sonia Melgar RN RN nj1 Katlyn Henry, RN RN jp5 Lou Serra RN ph Corrections: (The following items were deleted from the chart) 09:54 09:52 PMHx: Hypothyroidism; nj1 nj1 11:18 11:18 Misc. Order ordered. kb kb
--- NOTE | 2023-05-28 12:40 | ER ---
Nurse's Notes [facility] Name: Maryellen Reed Age: 67 yrs Sex: Female : 1955 Arrival Date: 05/28/2023 Time: 09:41 Bed 6 Private MD: Diagnosis: Pain in left shoulder Presentation: 05/27 09:49 Chief complaint: Chief complaint: Patient states: Pain to left shoulder blade, onset nj1 about 10 min ago. Worse with palpation. Able to move extremity but painful. Denies injury. Coronavirus screen: Vaccine status: Patient reports receiving the 2nd dose of the covid vaccine. Ebola Screen: Patient denies travel to an Ebola-affected area in the 21 days before illness onset. Initial Sepsis Screen: Does the patient meet any 2 criteria? No. Patient's initial sepsis screen is negative. Does the patient have a suspected source of infection? No. Patient's initial sepsis screen is negative. Risk Assessment: Do you want to hurt yourself or someone else? Patient reports no desire to harm self or others. Onset of symptoms was May 28, 2023 at 09:30. 09:49 Method Of Arrival: Ambulatory nj1 09:49 Acuity: BERYL 3 nj1 Triage Assessment: 09:54 General: Appears in no apparent distress. uncomfortable, Behavior is calm, cooperative, nj1 appropriate for age. Pain: Complains of pain in Left shoulder blade. Cardiovascular: Denies chest pain, Patient's skin is warm and dry. Respiratory: Airway is patent Respiratory effort is even, unlabored. Musculoskeletal: Reports pain in left shoulder blade. Historical: - Allergies: 09:52 Bactrim; nj1 10:38 Morphine (itching) (May 28, 2023); jp5 - PMHx: 09:52 CHF; Heart Murmur; Hyperlipidemia; Hypertensive disorder; nj1 - PSHx: 09:52 Total abdominal hysterectomy; gastric sleeve; nj1 - Immunization history:: Client reports receiving the 2nd dose of the Covid vaccine. - Social history:: Smoking status: Patient denies any tobacco usage or history of. Screenin:00 [facility] ED Fall Risk Assessment (Adult) History of falling in the last 3 months, ph including since admission No falls in past 3 months (0 pts) Confusion or Disorientation No (0 pts) Intoxicated or Sedated No (0 pts) Impaired Gait No (0 pts) Mobility Assist Device Used No (0 pt) Altered Elimination No (0 pt) Score/Fall Risk Level 0 - 2 = Low Risk Oriented to surroundings, Hourly rounding (assess needs \T\ fall precautionary measures) done. Abuse screen: Denies threats or abuse. Denies injuries from another. Nutritional screening: No deficits noted. Tuberculosis screening: No symptoms or risk factors identified. Assessment: 10:20 General: Appears in no apparent distress. uncomfortable, well groomed, Behavior is jp5 cooperative, appropriate for age, restless, Denies fever, feeling ill, fatigue, chills. Pain: Complains of pain in left arm and posterior aspect of left shoulder. Neuro: Level of Consciousness is awake, alert, obeys commands, Oriented to person, place, time, situation, Appropriate for age. Cardiovascular: Capillary refill < 3 seconds fingers Patient's skin is warm and dry. Respiratory: Airway is patent Respiratory effort is even, unlabored, Respiratory pattern is regular. GI: Patient currently denies nausea, vomiting. Derm: Skin is intact, Skin is pink, warm \T\ dry. normal. 11:30 Reassessment: Patient appears in no apparent distress at this time. Patient and/or iw family updated on plan of care and expected duration. Pain level reassessed. Patient is alert, oriented x 3, equal unlabored respirations, skin warm/dry/pink. Vital Signs: 09:49 BP 133 / 72; Pulse 77; Resp 18; Temp 97.9(TE); Pulse Ox 98% ; Weight 117.93 kg; Height nj1 5 ft. 5 in. ; Pain 8/10; 10:08 BP 130 / 70 RA Sitting (auto/lg); Pulse 73; Resp 20; Pulse Ox 97% on R/A; ph 10:30 BP 134 / 80; Pulse 71; Resp 18; Pulse Ox 95% on R/A; ph 11:30 BP 138 / 70 RA Sitting (auto/lg); Pulse 60; Resp 18; Pulse Ox 91% on R/A; jp5 12:30 BP 122 / 64; Pulse 60; Resp 18; Pulse Ox 94% on R/A; jp5 09:49 Body Mass Index 43.26 (117.93 kg, 165.1 cm) [facility] 09:49 Pain Scale: Adult nj1 ED Course: 09:15 Patient has correct armband on for positive identification. Bed in low position. Call jp5 light in reach. Side rails up X 1. Provided Education on: time of lab results and call light use.. Client placed on continuous cardiac and pulse oximetry monitoring. NIBP monitoring applied. potline monitor on. Pulse ox on. 09:44 Patient arrived in ED. ra3 09:48 Sydnee Boudreaux, [facility] kb 09:48 Kristian Marrero MD is Attending Physician. kb 09:52 Triage completed. nj1 09:54 Arm band placed on right wrist. nj1 09:59 Lou Serra, RN is Primary Nurse. ph 10:13 EKG done, by ED staff, reviewed by Kristian Marrero MD. hb 10:14 XRAY Chest (1 view) In Process Unspecified. EDMS 10:14 Shoulder Left (2 View) XRAY In Process Unspecified. EDMS 10:20 Initial lab(s) drawn, by ED staff, sent to lab. Inserted saline lock: 22 gauge in left jp5 antecubital area, using aseptic technique. 10:21 Basic Metabolic Panel Sent. jp5 10:21 CBC with Diff Sent. jp5 10:21 Troponin HS Sent. jp5 12:07 Troponin High Sensitivity Sent. jp5 12:07 Repeat lab(s) drawn. by me, sent to lab. jp5 12:49 IV discontinued, intact, bleeding controlled, No redness/swelling at site. Pressure jp5 dressing applied. Administered Medications: 10:32 Drug: Ondansetron IVP 4 mg IVP once; over 2 minutes Route: IVP; Site: left antecubital; jp5 10:40 Follow up: Response: No adverse reaction ph 10:33 Drug: morphine IVP or IV 4 mg IVP once over 4 mins Route: IVP; Infused Over: 4 mins; jp5 Site: left antecubital; 10:33 Follow up: Response: Adverse reaction, Physician notified ph 10:38 Drug: diphenhydrAMINE IVP 12.5 mg IVP once Route: IVP; Site: left antecubital; jp5 10:40 Follow up: Response: No adverse reaction; Marked relief of symptoms ph 10:38 Drug: MethylPrednisoLONE IVP 125 mg IVP once Route: IVP; Site: left antecubital; jp5 10:40 Follow up: Response: No adverse reaction; Marked relief of symptoms ph 10:38 Drug: Famotidine IVP 20 mg IVP once; dilute with 10 mL 0.9% NaCl; give over 2 minutes jp5 Route: IVP; Site: left antecubital; 10:40 Follow up: Response: No adverse reaction; Marked relief of symptoms ph 11:35 Drug: Furosemide IVP 20 mg IVP once; give over 2 minutes Route: IVP; Site: left forearm;iw 11:35 Drug: Ketorolac IVP 15 mg IVP once Route: IVP; Site: left forearm; iw 11:36 Drug: Potassium Chloride PO 20 mEq PO once Route: PO; iw Outcome: 12:39 Discharge ordered by MD. kb 12:49 Discharged to home ambulatory, with family, jp5 12:49 Condition: stable 12:49 Discharge instructions given to patient, family, Instructed on discharge instructions, follow up and referral plans. medication usage, Demonstrated understanding of instructions, follow-up care, medications, Prescriptions given X 2, 12:51 Patient left the ED. jp5 Signatures: Dispatcher [employer] EDMS Sydnee Boudreaux, TALENT ACQUISITION PROGRAM MANAGER-C TALENT ACQUISITION PROGRAM MANAGER-Ckb Yissel Larsen, RN RN Lou Serra RN JOHANNA Irlanda Pineda, RN JOHANNA Sonia Melgar RN RN nj1 Alva, [facility] Katlyn Henry, RN RN jp5 Corrections: (The following items were deleted from the chart) 09:54 09:52 PMHx: Hypothyroidism; nj1 nj1 09:55 09:49 Pulse 77bpm; Resp 18bpm; Pulse Ox 98%; Temp 97.9F Temporal; 117.93 kg; Height 5 nj1 ft. 5 in.; BMI: 43.2; Pain 8/10, Adult; nj1
[2023-05-28 13:14] VITALS: BP 122/64; TEMP 97.9; O2SAT 94
--- NOTE | 2023-05-29 14:16 | EKG ---
Test Date: 2023-05-28 Test Time: 09:13:48 Tube Filler: TY MEASUREMENT RESULTS: Intervals: Rate: 72 MO: 210 QRSD: 98 QT: 404 QTc: 442 [place]: P: 15 MO: 210 QRS: 47 T: 79 INTERPRETIVE STATEMENTS: Sinus rhythm with 1st degree AV block Otherwise normal ECG Compared to ECG 05/02/2022 11:31:50 First degree AV block now present ST (T wave) deviation no longer present Possible ischemia no longer present Electronically Signed On 05-29-23 14:14:01 CDT by Geoffrey Lazar
== END ==
LOC: ER 09:41
DX: M25.512 Pain in left shoulder (principal); Z88.1 Allergy status to other antibiotic agents; Z88.5 Allergy status to narcotic agent
CPT/HCPCS: 93005; 85025; 80048; 36415; 84484 ×2; 71045; 73030; J1940; J1200; J2930; J2405; 99285

== ENCOUNTER 2023-06-06 06:58 | Emergency (ER) | payer OTHER ==
--- OUTSIDE RECORDS SUMMARY | 2023-06-06 07:01 | XMS REPORT | Continuity of Care Document ---
Author Name Unknown Address [address] [facility] [address] [place] [address] [facility] Address [address] [facility] [address] [place] [address] Care Team Providers Care Visual Communications Instructor Name Role Phone Palmira Goode Attending Clinician Unavailable SMITH ANTONIO Attending Clinician Unavailable LAB90 Attending Clinician Unavailable KATERINA MIRZA Attending Clinician UnaBRAEDEN Levy Attending Clinician Unavailable COVID-PFIZER [facility] Attending Clinic tony Unavailable ELIANE HEMPHILL Attending Clinician Un available DR ALEXANDRA PENALOZA Attending Clinician Unavailable Palmira Goode Admitting Clinician Unavailable ELIANE HEMPHILL Admitting Clinician Un available DR ALEXANDRA PENALOZA Admitting Clinician Unavailable Payers Payer Name Policy Type Policy Number Effective Date Expirati on Date Source KSENIA MADSEN PPO 5 [id number] 2021 00:00:00 Problems Condition Name Condition Details [...] s Active Hives 2021-03 00:00: 00 Aminata Mcnaira andriy Tylenol Propensi ty to adverse reaction s Active 2021-03 00:00: 00 PATIENT STATES SHE FELT HORRIBLE AND WENT TO THE ER Aminata ashraf Acetamin ophen Injectio n Propensi ty to adverse reaction s Active 09-08 00:00: 00 Aminata Spann Externa andriy sulfamet hoxazole DA Active SV 10-01 00:00: 00 [facility] trimetho prim DA Active SV 10-01 00:00: 00 [facility] trimetho prim DA Active SV hives breakout itchiness 10-01 00:00: 00 [facility] sulfamet hoxazole DA Active SV hives breakout itchiness 10-01 00:00: 00 [facility] Sulfamet hoxazole W-Trimet hoprim Propensi ty to adverse reaction s Active 03-07 00:00: 00 Aminata Spann Externa andriy No Known Intolera nces DA Active U 2008-03 00:00: 00 [facility] No Known Intolera nces DA Active U 2008-03 00:00: 00 [facility] Social History Social Habit Start Date Stop Date Quantity Comments Source History SDOH Alcohol Frequency Aminata No leslye - External History SDOH Alcohol Std Drinks Aminata crandall - External History SDOH Alcohol Binge Aminata Bhagat - External History of tobacco use Current smoker Aminata Zari vega - External Sexual orientation Natalya Bhagat - External Alcohol intake 2023-02-07 00:00:00 2023-02-07 00:00:00 Current drinker of alcohol (finding) Aminata Bhagat - External Alcohol Comment 2021-12-13 00:00:00 2021-12-13 00:00:00 SOCIAL Aminata Bhagat - External History of Social function 2021-12-13 00:00:00 2021-12-13 00:00:00 Aminata Seraz - External Sex Assigned At 1955 00:00:00 [...] MG oral Tablet 2022-03 00:00: 00 Yes [id number] 10mg Take 1 tablet (10 mg total) by mouth daily. Aminata ashraf Losartan Potassium (COZAAR) 50 MG oral Tablet 11-25 00:00: 00 Yes Aminata ashraf Amoxicillin 875 MG oral Tablet 2021-03- 00:00: 00 02-07 00:00 :00 No [id number] 875mg Take 1 tablet (875 mg total) by mouth 2 times daily Aminata ashraf Nitrofurant oin Monohyd Macro 100 MG oral Capsule 2021-03 00:00: 00 02-07 00:00 :00 No [id number] 100mg Take 1 capsule (100 mg total) [...] vaccine, quadrivalent, adjuvanted, 65+ Unknown Completed Aminata andrade - External Pneumococcal Vaccine, Conjugate 13 Unknown [...] Body height 2023-02-07 19:23:00 166.4 cm Elly ey Seybold - External Body weight 2023-02-07 19:23:00 120.203 kg Elly ey Seybold - External BMI 2023-02-07 19:23:00 43.43 kg/m2 Elly ey Seybold - External Systolic blood pressure 2021-12-13 15:34:00 140 mm[Hg] Aminata Seybo ld - External Diastolic blood pressure 2021-12-13 15:34:00 78 mm[Hg] Aminata Seybo ld - External Heart rate 2021-12-13 15:34:00 95 /min Alan y Seluis mold - External Body temperature 2021-12-13 15:34:00 35.39 [...] End Date/Time Encounter Type Admission Type Attending [facility] Facility Care Department Encounter ID Source 2019-10-02 14:00:00 Inpatient Palmira Goode [facility] [id number] [facility] 2023-08-09 10:30:00 2023-08-09 10:30:00 Outpatient SMITH ANTONIO [id number] Aminata [facility] 2023-04-05 10:25:00 2023-04-05 10:25:00 Outpatient LAB90 AMINATA KIRK [id number] Aminata [facility] 2023-03-23 00:00:00 2023-03-23 00:00:00 Outpatient KATERINA MIRZA [id number] Aminata [facility] 2023-03-23 00:00:00 2023-03-23 00:00:00 Outpatient KATERINA MIRZA [id number] Aminata [facility] 2023-03-22 00:00:00 2023-03-22 00:00:00 Outpatient KATERINA MIRZA [id number] Aminata [facility] 2023-02-10 00:00:00 2023-02-10 00:00:00 Outpatient BRAEDEN WOLFE [id number] Aminata [facility] 2023-02-10 00:00:00 2023-02-10 00:00:00 Outpatient BRAEDEN WOLFE [id number] Aminata [facility] 2023-02-09 00:00:00 2023-02-09 00:00:00 Outpatient HERMES, KATERINA [facility] KIRK [id number] [facility] 00:00:00 2023-02-09 00:00:00 Outpatient PREZABRAEDEN Noriega AMINATA KIRK [id number] Aminata Seybold 2023-02-08 00:00:00 2023-02-08 00:00:00 Outpatient HERMES, KATERINA AMINATA KIRK [id number] [facility] 2023-02-07 14:30:00 2023-02-07 14:30:00 Outpatient LAB90 AMINATA KIRK [id number] [facility] 2023-02-07 13:30:00 2023-02-07 13:30:00 Outpatient HERMES, KATERINA AMINATA KIRK [id number] [facility] 2023-02-07 13:00:00 2023-02-07 13:00:00 Outpatient HUNDAndriy, SMITH [facility] [id number] [facility]22-[facility]02 00:00:00 2022-11-02 00:00:00 Outpatient HERMES, KATERINA KIRK [id number] [facility] 2022-02-18 00:00:00 2022-02-18 00:00:00 Outpatient HERMES, KATERINA KIRK [id number] [facility] 2022-01-11 00:00:00 2022-01-11 00:00:00 Outpatient HERMES, KATERINA KIRK [id number] [facility] 2022-01-11 00:00:00 2022-01-11 00:00:00 Outpatient HERMES, KATERINA KIRK [id number] Aminata Seybold 2021-12-20 00:00:00 2021-12-20 00:00:00 Outpatient HERMES, KATERINA KIRK [id number] Aminata Seybold 2021-12-15 00:00:00 2021-12-15 00:00:00 Outpatient HERMES, KATERINA KIRK [id number] Aminata Seybold 2021-12-13 12:05:00 2021-12-13 12:05:00 Outpatient LAB90 AMINATA KIRK [id number] Aminata Bhagat 2021-12-13 11:20:00 2021-12-13 11:20:00 Outpatient COVID-PFIZE BONNIE ZIMMERMAN [id number] Aminata Bhagat 2021-12-13 10:45:00 2021-12-13 10:45:00 Outpatient KATERINA MIRZA [facility] [id number] [facility] 2020-11-19 12:00:00 2020-11-19 12:00:00 Outpatient ELIANE HARRELL HCAPM WINTER [id number] [facility] 2019-09-28 08:00:00 2019-09-28 08:00:00 Outpatient NoahsulmaPalmira zazueta [facility]CAWU [facility]G [id number] [facility] 2016-07-07 04:47:00 2016-07-07 08:30:00 Outpatient ALEXANDRA ALVARENGA [facility] [id number] [facility] Results Test Description Test Time Test Comments Results Result Co mments Source COMPREHENSIVE METABOLIC [id number] 12:54:00* Test Item Value Reference Range Interpretation [...] LDL/HDL) 2.25 Ratio 1.48-3.22 Avg N PROTHROMBIN [id number] 12:33:00* Test Item Value Reference Range Interpretation Comme nts PT PATIENT (test code = PTP) 12.0 SECONDS 9.3-12.9 N INTERNATIONAL NORMAL RATIO (test code = INR) 1.06 INR Unit 0.8-1.2 N THROMBOPLASTIN TIME [id number] 12:33:00* Test Item Value Reference Range Interpretation Comme nts THROMBOPLASTIN TIME PARTIAL (test code = PTT) 30.4 SECONDS 26-35 N COVID 19 Asymptomatic IH [id number] 11:27:00* Test Item Value Reference Range Interpretation Comme nts COVID 19 Asymptomatic IH AG (test code = COVNONPUIAG) NEGATIVE Negative Per informatics spec , negative results should be treated aspresumptive [...] Notes Date/Time Note Provider Source 2019-10-02 14:32:00 [id number]:3 [id number] [address] PATIENT NAME: EMILY MAST ADMIT DATE: 10/02/19ACCOUNT NO: [id number] ROOM NO: AGE: 64 REPORT TYPE: CARDIAC CATHETERIZATION REPORT SEX: F ADMITTING PHYSICIAN: ATTENDING PHYSICIAN: Palmira Goode MD PROCEDURE DATE: 10/02/2019 STRAIGHTENER AND ALIGNER: Palmira Goode MD TITLE OF THE PROCEDURE: [...] common femoral artery area for localanesthesia. A 6-Kenyan sheath was placed in the right common [...] NM Dictated By: Palmira Goode MD WT: CATH:ARTEMIO/SLIME/ISA PATIENT NAME: EMILY MAST DT: 10/02/2019 15:00:15Conf#: [id number]/DID#: [id number] Authenticated by Palmira Goode MD On 10/04/2019 07:57:04 AM at 0757 PATIENT NAME: EMILY MAST [id number]:[id number] ble for patient [id number]:57:33 [facility] 2019-10-01 17:08:00 [id number] [place] [address] PATIENT NAME: EMILY AMST ADMIT DATE: 10/02/19ACCOUNT NO: [id number] ROOM NO: AGE: 64 REPORT TYPE: HISTORY [...] magnesium, multivitamin, Levothroid,escitalopram 10 mg daily, potassium lvkn-uvp-anuixpi daily, losartan 100 mgdaily, ezetimibe 10 mg [...] MD WT: HP:L.MADELINE/SLIME/ISADD: 10/01/2019 17:08:54DT: 10/01/2019 19:04:19Conf#: [id number]/DID#: [id number] by Palmira Goode MD On 10/02/2019 02:39:20 PM at 1439 PATIENT NAME: EMILY MAST and physical [id number]:04:[id number] VAvailable for patient [id number]:39:52 HCAPM
--- NOTE | 2023-06-06 08:11 | RAD REPORT ---
EXAM DESCRIPTION: RAD - Foot Right 3 View - 06/06/2023 8:06 am CLINICAL HISTORY: foot injury COMPARISON: No comparisons FINDINGS/IMPRESSION: No acute fracture. No malalignment. Calcaneal spurs. Mild midfoot degenerative changes.
--- NOTE | 2023-06-06 08:27 | ER ---
Nurse's Notes [facility] Name: Maryellen Reed Age: 67 yrs Sex: Female : 1955 Arrival Date: 06/06/2023 Time: 06:58 Bed 16 Private MD: Diagnosis: Pain in right foot Presentation: 06/05 07:05 Chief complaint: Patient states: RIGHT FOOT PAIN SINCE YESTERDAY STATES WAS WALKING UP db AND DOWN STAIRS TO ATTIC AND TODAY RIGHT PLANTAR SURFACE OF FOOT IS HURTING. Coronavirus screen: Client denies travel out of the [place] in the last 14 days. At this time, the client does not indicate any symptoms associated with coronavirus-19. Ebola Screen: Patient negative for fever greater than or equal to 101.5 degrees Fahrenheit, and additional compatible Ebola Virus Disease symptoms Patient denies exposure to infectious person. Patient denies travel to an Ebola-affected area in the 21 days before illness onset. No symptoms or risks identified at this time. Initial Sepsis Screen: Does the patient meet any 2 criteria? No. Patient's initial sepsis screen is negative. Does the patient have a suspected source of infection? No. Patient's initial sepsis screen is negative. Risk Assessment: Do you want to hurt yourself or someone else? Patient reports no desire to harm self or others. Onset of symptoms was June 05, 2023. 07:05 Method Of Arrival: Wheelchair db 07:05 Acuity: BERYL 4 db Triage Assessment: 07:18 General: Appears in no apparent distress. comfortable, Behavior is calm, cooperative. db Pain: Complains of pain in right foot. Musculoskeletal: Circulation, motion, and sensation intact. Capillary refill < 3 seconds, Range of motion: limited in right foot. Injury Description: Bruise sustained to right foot. Historical: - Allergies: 07:18 Bactrim; db 07:18 Morphine (Itching) (May 27); db - PMHx: 07:18 CHF; Heart Murmur; Hyperlipidemia; Hypertensive disorder; db - PSHx: 07:18 Total abdominal hysterectomy; gastric sleeve; db - Immunization history:: Adult Immunizations unknown. - Infectious Disease History:: Denies. - Social history:: Smoking status: Patient denies any tobacco usage or history of. Screenin:20 [facility] ED Fall Risk Assessment (Adult) History of falling in the last 3 months, db including since admission No falls in past 3 months (0 pts) Confusion or Disorientation No (0 pts) Intoxicated or Sedated No (0 pts) Impaired Gait No (0 pts) Mobility Assist Device Used No (0 pt) Altered Elimination No (0 pt) Score/Fall Risk Level 0 - 2 = Low Risk Oriented to surroundings, Maintained a safe environment. Abuse screen: Denies threats or abuse. Denies injuries from another. Nutritional screening: No deficits noted. Tuberculosis screening: No symptoms or risk factors identified. Assessment: 07:20 Reassessment: SEE TRIAGE FOR INITIAL ASSESSMENT. db 08:03 Reassessment: Patient appears in no apparent distress at this time. Patient and/or db family updated on plan of care and expected duration. Pain level reassessed. Patient is alert, oriented x 3, equal unlabored respirations, skin warm/dry/pink. 08:37 Reassessment: Patient appears in no apparent distress at this time. Patient and/or db family updated on plan of care and expected duration. Pain level reassessed. Patient is alert, oriented x 3, equal unlabored respirations, skin warm/dry/pink. Patient states symptoms have improved. General: Appears in no apparent distress. comfortable, Behavior is calm, cooperative. Pain: Complains of pain in right foot. Neuro: Level of Consciousness is awake, alert, obeys commands, Oriented to person, place, time, situation. Vital Signs: 07:05 BP 150 / 82; Pulse 67; Resp 16; Temp 98.1(O); Pulse Ox 99% ; Weight 118.84 kg; Height 5 db ft. 5 in. ; Pain 4/10; 07:30 BP 142 / 82; Pulse 65; Resp 16; Pulse Ox 96% on R/A; db 08:00 BP 137 / 80; Pulse 64; Resp 16; Pulse Ox 97% on R/A; db 07:05 Body Mass Index 43.60 (118.84 kg, 165.1 cm) db 07:05 Pain Scale: Adult db ED Course: 06:59 Patient arrived in ED. rg4 07:11 Venkata Najera MD is Attending Physician. ec2 07:14 Krista Magallon, JOHANNA is Primary Nurse. db 07:16 Triage completed. db 07:18 Arm band placed on Patient placed in an exam room. db 07:20 Patient has correct armband on for positive identification. Bed in low position. Call db light in reach. Side rails up X 1. Provided Education on: XRAY AND PAIN MANAGEMENT. Pulse ox on. NIBP on. 08:07 Foot Right 3 View XRAY In Process Unspecified. EDMS 08:15 RIGHT WALKING BOOT. NEURO INTACT. CAP REFILL <3. db 08:37 No provider procedures requiring assistance completed. Patient did not have IV access db during this emergency room visit. Administered Medications: 08:32 Drug: Methocarbamol PO 500 mg PO once Route: PO; db 08:37 Follow up: Response: No adverse reaction db Medication: 07:20 VIS not applicable for this client. db Outcome: 08:26 Discharge ordered by . ec2 08:37 Discharged to home via wheelchair, db 08:37 Condition: stable 08:37 Discharge instructions given to patient, Instructed on discharge instructions, follow up and referral plans. Prescriptions given X 1, 08:39 Discharged to db 08:39 Patient left the ED. db Signatures: Dispatcher [employer] Nellie Alonzo rg4 Krista Magallon, RN RN db Venkata Najera MD MD ec2 Corrections: (The following items were deleted from the chart) 07:18 07:05 Onset of symptoms was June 06, 2023 db db 08:39 08:37 Discharged to home ambulatory, db db 08:39 08:37 Discharge instructions given to patient, Instructed on discharge instructions, db follow up and referral plans. Prescriptions given X 1, db
--- NOTE | 2023-06-06 08:27 | EDPHYS ---
Physician Documentation [facility] Name: Maryellen Reed Age: 67 yrs Sex: Female : 1955 Arrival Date: 06/06/2023 Time: 06:58 Bed 16 Private MD: ED Physician Venkata Najera HPI: 06/05 07:17 This 67 yrs old Female presents to ER via Wheelchair with complaints of Foot ec2 Injury. 07:17 Patient arrives today for evaluation of right foot pain. Patient complains of pain in ec2 the medial aspect of the plantar aspect of the right foot. Denies any specific injuries or trauma. States history of overuse at the other day. Patient reports has not taken any medications, no Tylenol, no ibuprofen. Denies any leg swelling, denies any skin changes.. Historical: - Allergies: 07:18 Bactrim; db 07:18 Morphine (Itching) (May 27); db - PMHx: 07:18 CHF; Heart Murmur; Hyperlipidemia; Hypertensive disorder; db - PSHx: 07:18 Total abdominal hysterectomy; gastric sleeve; db - Immunization history:: Adult Immunizations unknown. - Infectious Disease History:: Denies. - Social history:: Smoking status: Patient denies any tobacco usage or history of. ROS: 07:17 Constitutional: as per hpi ec2 Exam: 07:17 Constitutional: GEN: NAD Head: atraumatic Eyes: EOMI Ears: External ears are ec2 normal. CV: regular rate LUNGS: no respiratory distress ABD: non-distended SKIN: no evidence of rashes MSK: no evidence of trauma, TTP to the medial aspect of the plantar aspect of the right foot, no deformity, no crepitus, no erythema, no warmth, no discharge NEURO: moves all extremities equally Vital Signs: 07:05 BP 150 / 82; Pulse 67; Resp 16; Temp 98.1(O); Pulse Ox 99% ; Weight 118.84 kg; Height 5 db ft. 5 in. ; Pain 4/10; 07:30 BP 142 / 82; Pulse 65; Resp 16; Pulse Ox 96% on R/A; db 08:00 BP 137 / 80; Pulse 64; Resp 16; Pulse Ox 97% on R/A; db 07:05 Body Mass Index 43.60 (118.84 kg, 165.1 cm) db 07:05 Pain Scale: Adult db MDM: 07:17 Patient medically screened. ec2 07:17 Data reviewed: vital signs. ED course: Patient arrives today for evaluation of right ec2 foot pain. Examination remarkable for findings as above. Will obtain radiograph to evaluate for bony fracture. Suspect muscle contusion.. 08:26 ED course: Foot x-ray shows no bony fracture. Will discharge home, placed her in a ec2 walking boot and have her follow-up primary care doctor. Return precautions given. Considered other process such as DVT, cellulitis, gout.. 06/05 07:17 Order name: Foot Right 3 View XRAY; Complete Time: 08:26 ec2 06/05 07:58 Order name: Walking boot; Complete Time: 08:23 ec2 Administered Medications: 08:32 Drug: Methocarbamol PO 500 mg PO once Route: PO; db 08:37 Follow up: Response: No adverse reaction db Disposition Summary: 06/06/23 08:26 Discharge Ordered Notes: Location: Home ec2 Condition: Stable ec2 Diagnosis - Pain in right foot ec2 Followup: ec2 - With: Private Physician - When: - Reason: Re-evaluation by your physician Discharge Instructions: - Discharge Summary Sheet ec2 - Foot Pain ec2 Forms: - Medication Reconciliation Form ec2 - Thank You Letter ec2 - Antibiotic Education ec2 - Prescription Opioid Use ec2 - Patient Portal Instructions ec2 - Leadership Thank You Letter ec2 Prescriptions: - Ibuprofen 800 mg Oral Tablet - take 1 tablet ORAL route every 8 hours As needed take with food; 30 tablet; ec2 Refills: 0, Product Selection Permitted - methocarbamol 500 mg Oral tablet - take 1 tablet ORAL route 4 times per day; 10 tablet; Refills: 0, Product ec2 Selection Permitted Signatures: Dispatcher [employer] Krista De La Cruz RN RN db Corral, Edwin, MD MD ec2
[2023-06-06] MEDS ORDERED: methocarbamoL 500 MG TAB ONE (08:33)
[2023-06-06 17:03] VITALS: BP 137/80; TEMP 98.1; O2SAT 97
== END 2023-06-06 08:39 | disposition home or self-care (01) ==
LOC: ER 06:58
DX: M79.671 Pain in right foot (principal); Z88.1 Allergy status to other antibiotic agents; Z88.5 Allergy status to narcotic agent
CPT/HCPCS: 99284

== ENCOUNTER 2023-08-11 06:51 | Day surgery (SDC) | payer OTHER ==
[2023-08-09 09:11] LABS: Absolute Eosinophils 0.2 K/uL (0-0.5); Absolute Lymphocytes (CBC) 1.8 K/uL (0.7-4.9); Absolute Monocytes 0.9 K/uL (0.1-1.3); Absolute Neutrophil 4.4 K/uL (1.8-8.0); Basophils % 0.4 % (0-1.3); Eosinophils % 3.2 % (0-4.4); Hematocrit 39.9 % (36.0-45.0); Hemoglobin 12.8 g/dL (12.0-15.0); Lymphocytes % 24.5 % (15.3-44.8); MCH 29.7 pg (27.0-35.0); MCHC 32.2 g/dL (32.0-36.0); MCV 92.1 fL (80-100); MPV 7.6 fL (7.6-11.3); Monocytes % 11.8 % (3.3-12.3); Neutrophils % 60.1 % (41.7-73.7); Platelets 288 thou/uL (152-406); RBC Red Blood Cell Count 4.33 M/uL (3.86-4.86); Red Cell Distribution Width 14.7 % (12.1-15.2)
[2023-08-09 09:22] LABS: Anion Gap 6.2 mEq/L (5.0-15.0); Potassium 4.2 mEq/L (3.5-5.1)
[2023-08-11] MEDS: Ringers Lactate 1,000 ML IV ONE (07:25)
[2023-08-11] MEDS ORDERED: propofoL 200 MG/20 ML VIAL IV ONE (08:24)
[2023-08-11] MEDS ORDERED: GLYCOPYRROLATE 0.2 MG/ML SYR ONE (08:24)
[2023-08-11] MEDS ORDERED: LIDOCAINE 1% MPF 5 ML VIAL ONE (08:24)
[2023-08-11 09:15] VITALS: BP 124/64; TEMP 98.6; O2SAT 98
== END 2023-08-11 08:58 | disposition home or self-care (01) ==
LOC: OR 06:51
PROVIDERS: ATTEND Surgery
PROC: 0DBN8ZX Excision of Sigmoid Colon, Via Natural or Artificial Opening Endoscopic, Diagnostic (ICD-10-PCS; 2023-08-11)
PROC: 0DBF8ZX Excision of Right Large Intestine, Via Natural or Artificial Opening Endoscopic, Diagnostic (ICD-10-PCS; 2023-08-11)
PROC: 0DBN8ZX Excision of Sigmoid Colon, Via Natural or Artificial Opening Endoscopic, Diagnostic (ICD-10-PCS; 2023-08-11)
PROC: 0DBH8ZX Excision of Cecum, Via Natural or Artificial Opening Endoscopic, Diagnostic (ICD-10-PCS; principal; 2023-08-11 08:00)
DX: Z12.11 Encounter for screening for malignant neoplasm of colon (principal); K57.30 Diverticulosis of large intestine without perforation or abscess without bleeding; K64.8 Other hemorrhoids
CPT/HCPCS: 85025; 80048; 36415; 88305; 45380; J2704; J2001; J7120